=== PATIENT | female | born 1995 | race Caucasian/White ===

== ENCOUNTER → 2024-04-01 12:21 | Outpatient (REF) | payer OTHER, SELFPAY ==
[2024-04-01 13:12] LABS: MANUAL DIFF FLAG NO
--- NOTE | 2024-04-01 13:16 | ECG_ITS ---
Test Reason : qtc check Blood Pressure : / mmHG Vent. Rate : 067 BPM Atrial Rate : 067 BPM P-R Int : 146 ms QRS Dur : 066 ms QT Int : 416 ms P-R-T Axes : 037 061 029 degrees QTc Int : 439 ms Normal sinus rhythm Normal ECG No previous ECGs available Referred By: Mini Collado Electronically Signed By:BRITT LIM
[2024-04-01 14:00] LABS: Basophils Percent Auto 0.5 % (0-2); Eosinophils Absolute Auto 0.2 X10*3/uL (0.0-0.4); Eosinophils Percent Auto 1.7 % (0-4); Hematocrit 42.8 % (37.0-47.0); Hemoglobin 14.4 g/dl (12.0-16.0); Imm Gran Abs Auto 0.03 X10*3/uL (0.00-0.03); Imm Gran Pct Auto 0.3 % (0.0-0.4); Lymphocytes Absolute Auto 3.7 X10*3/uL (1.2-4.9); Lymphocytes Percent Auto 42.6 % (20-40); Mean Corpuscular HGB Conc 33.6 g/dl (31.0-35.0); Mean Corpuscular Hemoglobin 32.7 pg (27.0-33.0); Mean Corpuscular Volume 97.1 fL (80.0-98.0); Mean Platelet Volume 9.9 fL (9.4-12.3); Monocytes Absolute Auto 0.8 X10*3/uL (0.1-1.2); Neutrophils Percent Auto 45.9 % (45-73); Platelet Count 246 X10*3/uL (160-400); Red Blood Count 4.41 X10*6/uL (4.20-5.50); White Blood Count 8.7 X10*3/uL (4.8-10.8)
[2024-04-01 14:02] LABS: Appearance Urine Clear; Color Urine Yellow; Glucose Urine UA Negative (Negative); Leukocyte Esterase Urine Negative (Negative); Nitrite Urine Negative (Negative); PH 6.5 (5.0-9.0); Specific Gravity - Urine <= 1.005 (1.005-1.025); Urine Blood Negative (Negative); Urine Ketones Negative (Negative); Urine Protein Negative (Neg-Trace)
[2024-04-01 14:11] LABS: Estimated Average Glucose 91 mg/dL; Hemoglobin A1C 104.7806 umol/L; Hemoglobin A1c % 4.8 % (<6.0); Total Hemoglobin (HGBA1C) 3635.7483 umol/L
[2024-04-01 14:37] LABS: Erythrocyte Sedimentation Rate 2 MM/HR (0-20)
[2024-04-01 14:39] LABS: Lithium 0.75 mmol/L (0.60-1.20)
[2024-04-01 14:43] LABS: Valproate 94.8 mcg/mL (50.0-100.0)
[2024-04-01 14:48] LABS: Parathyroid Hormone Intact 74.9 pg/mL (8.7-77.1)
[2024-04-01 14:49] LABS: Alanine Aminotransferase 12 U/L (0-31); Albumin Level 4.4 g/dL (3.5-5.0); Alkaline Phosphatase 79 U/L (39-117); Anion Gap 12 (12-20); Aspartate Amino Transferase 39 U/L (5-31); Bilirubin Total 0.3 mg/dL (0.0-1.0); Blood Urea Nitrogen 9 mg/dL (9-16); C Reactive Protein < 0.10 mg/dL (< or = 0.50); Calcium 9.3 mg/dL (8.4-10.2); Carbon Dioxide 26 mmol/L (22-29); Chloride 106 mmol/L (96-108); Estimated Glomerular Filt Rate > 60; Glucose Random 77 mg/dL (60-115); Iron 81 mcg/dL (30-160); Magnesium 2.2 mg/dL (1.6-2.6); Percent Iron Saturation 26 % (15-50); Phosphorus 4.5 mg/dL (2.7-4.5); Potassium 4.6 mmol/L (3.3-5.1); Sodium 139 mmol/L (135-145); Total Iron Binding Capacity 308 mcg/dL (228-428); Total Protein 7.4 g/dL (6.5-8.0); Unsaturated Iron Binding 227 ug/dL
[2024-04-01 15:08] LABS: Ferritin 90 ng/mL (10-122); Free T4 (Free Thyroxine) 1.49 ng/dL (0.71-1.85); Thyroid Stimulating Hormone 0.33 uIU/mL (0.32-4.0)
[2024-04-01 15:17] LABS: Folate 8.4 ng/mL (> or = 4.0); Vitamin B12 486 pg/mL (200-900)
[2024-04-04 13:04] LABS: Thyroid Peroxidase Antibodies 243 IU/mL (<9)
[2024-04-04 21:04] LABS: Homocysteine 11.6 umol/L (<10.4)
[2024-04-05 16:04] LABS: Carnitine Esters 9 umol/L (4-13); Carnitine, Free 24 umol/L (19-48); Carnitine, Total 33 umol/L (25-58); Esterified/Free 0.38 umol/L (0.13-0.42)
[2024-04-06 16:04] LABS: Glucose-6-Phosphate Dehydrogen 14.7 U/g Hgb (7.0-20.5)
[2024-04-07 13:58] LABS: Vitamin B6 9.1 ng/mL (2.1-21.7)
[2024-04-07 18:38] LABS: VITAMIN D (1,25 OH) D3 23 pg/mL; Vit D (1,25-Dihydroxy) Total 23 pg/mL (18-72); Vitamin D (1,25 OH) D2 <8 pg/mL
[2024-04-08 13:38] LABS: Triiodothyronine T3 Reverse 14 ng/dL (8-25)
[2024-04-08 16:49] LABS: Vitamin B1 15 nmol/L (8-30)
== END ==
LOC: HO.CARD 12:21
PROVIDERS: PCP Internal Medicine; Visit Provider Psychiatry & Neurology Psychiatry
DX: F39 Unspecified mood [affective] disorder (principal); F31.60 Bipolar disorder, current episode mixed, unspecified; F50.9 Eating disorder, unspecified; E03.9 Hypothyroidism, unspecified; Z79.899 Other long term (current) drug therapy
CPT/HCPCS: 36415; 80053; 80164; 80178; 81003; 82379; 82607; 82652; 82728; 82746; 82955; 83036; 83090; 83540; 83735; 83970; 84100; 84134; 84207; 84425; 84439; 84443; 84481; 84482; 85025; 85652; 86140; 86376; 93005

== ENCOUNTER → 2024-04-01 13:16 | Outpatient (BNV) | payer OTHER, SELFPAY | PROVIDERS: PCP Internal Medicine; Visit Provider Internal Medicine | DX: F39 Unspecified mood [affective] disorder (principal); F31.60 Bipolar disorder, current episode mixed, unspecified; F50.9 Eating disorder, unspecified; E03.9 Hypothyroidism, unspecified | CPT/HCPCS: 93010 ==

== ENCOUNTER 2024-04-12 08:15 | Outpatient (RCR) | payer OTHER, SELFPAY ==
[2024-03-21 16:23] VITALS: BP 122/84; PULSE 72; RESP 18; TEMP 36.6
[2024-03-21 16:24] VITALS: BMI 27.8
--- NOTE | 2024-03-22 08:16 | PC.ADMIT ---
Rekha is a 28 year old female referred to [facility] for a step down from [facility] through [facility]. Rekha has a history of Bipolar I Disorder, Anxiety and eating disorder. Precipitating factors include worsening depression , increased anger decreased interest in activities of daily living, endorsing anxiety, passive SI and poor sleep due to running out of her medications. Upon approach Rekha is calm and pleasant, affect is broad, speech is clear and concise. When asked how she felt stated Ok, she reports endorsing 6/10 anxiety and depression, she denied auditory/visual hallucinations. When asked if she had any thoughts of wanting to hurt or kill self stated No. When asked if she had any thoughts of wanting to hurt or kill others stated No. Rekha reports everything started after she switched insurances and couldn't get her medications stated I couldn't get my Vraylar or Adderral. She reported having a breakdown in [employer]. She reported currently not having a provider I hope I get help with that. She reports having a good support system at home stated My boyfriend and his mother are extremely supportive. She would like to work on coping skills, safety plan reviewed and copy given.
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
--- NOTE | 2024-03-23 15:26 | HO.PHP ---
A referral for OP services was placed/faxed to [facility] today.
--- NOTE | 2024-03-24 14:41 | HO.PHP ---
Client's case has been opened and reviewed in team.
--- NOTE | 2024-03-25 14:11 | PC.NURSE ---
Rekha reports having a cough and chest congestion since 03/06. Stated she did have a productive cough however that resolved however continues with a cough and some chest congestion. She stated she was prescribed an inhaler and Prednisone as a result and was dx with Bronchitis. I recommended she call her PCP to f/u. She called her PCP in my office and reviewed her symptoms. They told her they would call her back for a f/u appointment.
--- NOTE | 2024-04-01 11:06 | P.PNPSP_ITS ---
Subjective Subjective Date of Service: 04/01/24 Reason For Visit: depression Interim History: Patient seen for follow up. Still presents as very depressed, withdrawn. Mood is reportedly irritable. On the outside I just tend to be quiet and keep to myself, otherwise I feel like I'll just lose it. On the inside I just want to be like 'F*k you' to everyone . Vague aggression ideation without urge plan or intention to hurt anyone. She feels some transient hopelessness, denies SI currently, but reports helplessness mostly just feeling like she doesn't know what to do with herself. Normally I use cutting, burning, starving, purging . She says it is hard not relying on these ways of coping. She doesnt know what else to do. Attention and concentration is not good. Reports feeling detached, like in space . It takes too much mental energy and focus to try to do things right . She denies acting on SIB, but the thoughts are always there. Energy is low. Profound anhedonia, lack of motivation and isolative. Appetite is poor and is unclear if she is eating well. She continues with cough and URTI symptoms and wearing mask. Again I suggest we should switch her from propranolol given could exacerbate asthma/breathing issues due to bronchoconstriction. She has hypothyroidism and is on 100 mcg. She is not sure when her last TFTs were taken. She is unsure if lithium has caused any worsening in thyroid function, but was diagnosed ~ 10 yrs ago. She has a history of hypersomnia, I would wake up at 2:30 pm to go to work for 3-11pm and then just go home and sleep from 11:30 pm until 2:30 pm again . She feels the Adderall XR 50 mg helps her function, without it I wouldn't ever make it here (to [facility]) . She continues on lithium and Depakote which have not been that helpful. Vraylar 4.5 mg had been helpful and was reportedly been stable on for some time, but then had a change in insurance and has not been able to get this prescribed since. She has been off since Feb 07. Mental health has suffered as a result. Vraylar was ordered last week but apparently did not go through insurance as she was unable to pick this up as it requires a PA which I will submit today. She is agreeable to checking labs, and will check routine labwork, TFTs as well as vpa and Li levels as well as nutritional panel. She is agreeable to staying longer at [facility] and will advocate for extension. Medication Compliance: Yes Side effects from medications: No Attending Groups: Yes Review of Systems Acute medical concerns: No Mental Status Exam Mental Status Exam Narrative: Patient presents as petite build, short bleached hair, wearing a mask. Noted bronchial cough. In no acute distress. ALert, oriented, calm, cooperative. No abnormalities of gait or movement. Eye contact good. Mood depressed, irritable. Affect appropriate, tired. No evidence of thought disorder. No paranoid or delusional content elicited. Content relevant to stressors, mood complaints. Denies AH, VH, TH. Sensorium clear. Cognition grossly intact. Insight fair, judgment fair-good Diagnostics Vital Signs (24Hr): BMI result Body Mass Index 27.8 Assessment & Plan Assessment & Plan (1) Bipolar affective, mixed, unspec: Status: Acute Code(s): F31.60 - Bipolar disorder, current episode mixed, unspecified Assessment and Plan: . (2) Hypersomnia, idiopathic: Status: Acute Code(s): G47.11 - Idiopathic hypersomnia with long sleep time Assessment and Plan: r/o type 2 narcolepsy (3) Eating disorder: Status: Acute Code(s): F50.9 - Eating disorder, unspecified Assessment and Plan: . (4) Other phobic anxiety disorders: Status: Acute Code(s): F40.8 - Other phobic anxiety disorders Assessment and Plan: r/o PTSD (5) Polysubstance abuse: Status: Acute Code(s): F19.10 - Other psychoactive substance abuse, uncomplicated Assessment and Plan: nicotine dependence (vaping), regular cannabis use/abuse (daily), alcohol use/?abuse (occasional) Plan Single, partnered, employed 28 yo w Bipolar, PTSD, h/o SIB, EDB, nicotine dep, casual marijuana and alcohol use, unspecified sleep disorder (hypersomnia) on Adderall, denies ADHD. Past IPLOCs including recent admission after decompensation 2/t being off medication. Was last seen by provider Francy HINES (reportedly last seen 02/2024 after discharge) but says she will be unable to continue under her care and will need a new provider referral. She has been successfully treated on Vraylar in the past and will restart this in lieu of Latuda, which she has not been compliant with since discharge. She is on propranolol for anxiety, she is noted to have hx of asthma, was unaware propranolol can cause bronchocontriction, but denies noticing any adverse effects from propranolol. We discussed choosing a cardio-selective beta-maryellen (eg atenolo, metoprolol) in place of propranolol. extension at [facility] start Vraylar 1.5 mg x 2 days then increase to 3 mg qd hold propranolol 20 mg QAM start prazosin 1 mg BID continue other regular medications: Depakote ER 750 mg qhs [place] ir 300 mg BID Adderall XR 50 mg qam (for hypersomnia) Xanax 0.25 BID prn anxiety? levothyroxine 100 mcg qd probiotic daily Routine lab work will do today EKG, routine for baseline QTc for medication considerations Continue to monitor Patient educated on: diagnosis, medication risk/benefits and medical condition Informed Consent: understands Reason for contiued partial hosp. stay Substantial Risk for: inability to function and med/psych decompensation Certification I certify that partial hospital treatment is medically necessary due to the symptoms and problems resulting from the patient's mental illness and the failure to treat the patient at the partial hospital level of care would likely result in the patient requiring inpatient psychiatric care which could not be prevented at a less intensive level of care. Total time managing care of this patient today __40__ minutes. Discharge Plan Discharge Attending provider: Mini Collado Medications: New cariprazine 3 mg capsule 3 mg PO DAILY Qty: 30 0RF prazosin 1 mg capsule 1 mg PO BEDTIME Qty: 14 0RF No Action levothyroxine 100 mcg tablet 100 mcg PO DAILY alprazolam 0.25 mg tablet 0.25 - 0.5 mg PO DAILY divalproex 500 mg tablet extended release 24 hr 500 mg PO BEDTIME propranolol 20 mg Tablet 20 mg PO BID lithium carbonate 300 mg tablet 300 mg PO BID dextroamphetamine-amphetamine [Adderall XR] 25 mg Capsule,Extended Release 24hr 25 mg PO DAILY divalproex 250 mg tablet extended release 24 hr 250 mg PO BEDTIME lurasidone [Latuda] 40 mg Tablet 40 mg PO DAILY Rx Instructions: Take in evening with meal Probiotic Complex 25 billion cell -100 mg Capsule 1 cap PO DAILY Stand Alone Forms: Patient Portal Discharge page Print Language: Colombian
--- NOTE | 2024-04-01 12:35 | HO.PHPPROGNO ---
Subjective Subjective Date of Service: 04/01/24 Reason For Visit: depression Diagnostics Vital Signs (24Hr): BMI result Body Mass Index 27.8 Assessment & Plan Certification I certify that partial hospital treatment is medically necessary due to the symptoms and problems resulting from the patient's mental illness and the failure to treat the patient at the partial hospital level of care would likely result in the patient requiring inpatient psychiatric care which could not be prevented at a less intensive level of care. Total time managing care of this patient today ____ minutes. Discharge Plan Discharge Attending provider: Mini Collado Medications: New cariprazine 3 mg capsule 3 mg PO DAILY Qty: 30 0RF Continued prazosin 1 mg capsule 1 mg PO BEDTIME Qty: 20 0RF No Action levothyroxine 100 mcg tablet 100 mcg PO DAILY alprazolam 0.25 mg tablet 0.25 - 0.5 mg PO DAILY divalproex 500 mg tablet extended release 24 hr 500 mg PO BEDTIME propranolol 20 mg Tablet 20 mg PO BID lithium carbonate 300 mg tablet 300 mg PO BID dextroamphetamine-amphetamine [Adderall XR] 25 mg Capsule,Extended Release 24hr 25 mg PO DAILY divalproex 250 mg tablet extended release 24 hr 250 mg PO BEDTIME lurasidone [Latuda] 40 mg Tablet 40 mg PO DAILY Rx Instructions: Take in evening with meal Probiotic Complex 25 billion cell -100 mg Capsule 1 cap PO DAILY Stand Alone Forms: Patient Portal Discharge page Print Language: Telugu
--- NOTE | 2024-04-07 17:43 | HO.PHP ---
A referral for [facility] was placed for Rekha, her new appts for intake, then to meet with provider, are as follows: 04/08/2024 10:00 AM - 11:00 AM in person [facility] Adult Comprehensive Assessment Prog: Outpatient Site: [address] [place] [address] Staff: Mehdi Villalta 05/12/2024 8:40 AM - 09:40 AM via telehealth Psychiatric E/M New - Telehealth v2 Prog: Psychiatric Services Site: [address] [place] [address] Staff: KELECHI KAPADIA Rekha will be provided a copy of her appts.
--- NOTE | 2024-04-08 00:49 | P.PNPSP_ITS ---
Subjective Subjective Date of Service: 04/07/24 Reason For Visit: depression Interim History: Patient seen for follow up. Reports that things are stressful . Reports mood as pretty anxious . Poor frustration tolerance. PA was filled out last week 04/03, update status appears PA did not go through, will resubmit request for authorization with cariprazosine. She was last at psychiatric baseline when treated on cariprazine and has been struggling with Bipolar depression/irritability/insomnia since she ran out. PHP was extended for another week, as she feels supportive environment is helping her manage while waiting for approval to restart cariprazine. Prazosin was helpful for first few nights for nightmares/anxiety, is open to increasing dose to 2 mg. Denies any adverse effects at night. Did not tolerate AM dosing (too sedating) and restarted propranolol in AM. Does not feel inclined to try any other mood stabilizers, has only found carprazine helpful and is holding out to restart this. Reviewed recent lab work with patient, - elevated anti-TPO Abs (patient unaware if she has Hashimotos). Was dx hypothyroid at age 17 that's all I know . She has upcoming appointment with PCP. She still presents with cough/URTI sx. She declines offer to switch from propranolol (which can cause bronchoconstrx) to cardioselective BB. She also has upcoming [facility] intake on 04/08 and new psych provider appointment 05/12. Medication Compliance: Yes Side effects from medications: Yes (limited improvement with current med regime (Li, VPA)) Attending Groups: Yes Review of Systems Acute medical concerns: No Mental Status Exam Mental Status Exam Narrative: Patient presents as petite build, short bleached hair, wearing a mask. Noted bronchial cough. In no acute distress. Alert, oriented, calm, cooperative. No abnormalities of gait or movement. Eye contact good. Mood depressed, irritable. Affect appropriate, tired. No evidence of thought disorder. Transient passive SI, no suicidal thoughts, intention, urge or plan to harm self. ISsues with poor frustration tolerance, irritability, denies AI or HI. No paranoid or delusional content elicited. Content relevant to stressors, mood complaints. Denies AH, VH, TH. Sensorium clear. Cognition grossly intact. Insight fair, judgment fair-good Diagnostics Vital Signs (24Hr): BMI result Body Mass Index 27.8 Assessment & Plan Assessment & Plan (1) Bipolar affective, mixed, unspec: Status: Acute Code(s): F31.60 - Bipolar disorder, current episode mixed, unspecified Assessment and Plan: . (2) Hypersomnia, idiopathic: Status: Acute Code(s): G47.11 - Idiopathic hypersomnia with long sleep time Assessment and Plan: r/o type 2 narcolepsy (3) Eating disorder: Status: Acute Code(s): F50.9 - Eating disorder, unspecified Assessment and Plan: . (4) Other phobic anxiety disorders: Status: Acute Code(s): F40.8 - Other phobic anxiety disorders Assessment and Plan: r/o PTSD (5) Polysubstance abuse: Status: Acute Code(s): F19.10 - Other psychoactive substance abuse, uncomplicated Assessment and Plan: nicotine dependence (vaping), regular cannabis use/abuse (daily), alcohol use/?abuse (occasional) Plan Single, partnered, employed 28 yo w Bipolar, PTSD, h/o SIB, EDB, nicotine dep, casual marijuana and alcohol use, unspecified sleep disorder (hypersomnia) on Adderall, denies ADHD. Past IPLOCs including recent admission after decompensation 2/t being off medication. Was last seen by provider Francy HINES (reportedly last seen 02/2024 after discharge) but says she will be unable to continue under her care and will need a new provider referral. She has been successfully treated on Vraylar in the past and will restart this in lieu of Latuda, which she has not been compliant with since discharge. She is on pr opranolol for anxiety, she is noted to have hx of asthma, was unaware propranolol can cause bronchocontriction, but denies noticing any adverse effects from propranolol. We discussed choosing a cardio-selective beta-maryellen (eg atenolo, metoprolol) in place of propranolol. extension at [facility] pending start Vraylar 1.5 mg x 2 days then increase to 3 mg qd (resubmitted PA again today) continue propranolol 20 mg QAM increase prazosin to 2 mg QHS continue other regular medications: Depakote ER 750 mg qhs (VPA therapeutic at 94.8) Nellie ir 300 mg BID (Li level therapuetic at 0.75) Adderall XR 50 mg qam (for hypersomnia) Xanax 0.25 BID prn anxiety? levothyroxine 100 mcg qd probiotic daily Routine lab work reviewed EKG, routine for baseline QTc for medication considerations Continue to monitor Certification I certify that partial hospital treatment is medically necessary due to the symptoms and problems resulting from the patient's mental illness and the failure to treat the patient at the partial hospital level of care would likely result in the patient requiring inpatient psychiatric care which could not be prevented at a less intensive level of care. Total time managing care of this patient today ____ minutes. Discharge Plan Discharge Attending provider: Mini Collado Medications: New cariprazine 3 mg capsule 3 mg PO DAILY Qty: 30 0RF Continued levothyroxine 100 mcg tablet 100 mcg PO DAILY alprazolam 0.25 mg tablet 0.25 - 0.5 mg PO DAILY divalproex 500 mg tablet extended release 24 hr 500 mg PO BEDTIME propranolol 20 mg Tablet 20 mg PO BID lithium carbonate 300 mg tablet 300 mg PO BID dextroamphetamine-amphetamine [Adderall XR] 25 mg Capsule,Extended Release 24hr 25 mg PO DAILY divalproex 250 mg tablet extended release 24 hr 250 mg PO BEDTIME lurasidone [Latuda] 40 mg Tablet 40 mg PO DAILY Rx Instructions: Take in evening with meal Probiotic Complex 25 billion cell -100 mg Capsule 1 cap PO DAILY prazosin 1 mg capsule 1 mg PO BEDTIME Qty: 20 0RF Stand Alone Forms: Patient Portal Discharge page Print Language: Serbian
--- NOTE | 2024-04-12 14:51 | P.PNPSP_ITS ---
Subjective Subjective Date of Service: 04/12/24 Reason For Visit: depression Diagnostics Vital Signs (24Hr): BMI result Body Mass Index 27.8 Assessment & Plan Certification I certify that partial hospital treatment is medically necessary due to the symptoms and problems resulting from the patient's mental illness and the failure to treat the patient at the partial hospital level of care would likely result in the patient requiring inpatient psychiatric care which could not be prevented at a less intensive level of care. Total time managing care of this patient today ____ minutes. Discharge Plan Discharge Attending provider: Mini Collado Medications: New cariprazine 3 mg capsule 3 mg PO DAILY Qty: 30 0RF Continued levothyroxine 100 mcg tablet 100 mcg PO DAILY alprazolam 0.25 mg tablet 0.25 - 0.5 mg PO DAILY divalproex 500 mg tablet extended release 24 hr 500 mg PO BEDTIME lithium carbonate 300 mg tablet 300 mg PO BID divalproex 250 mg tablet extended release 24 hr 250 mg PO BEDTIME Probiotic Complex 25 billion cell -100 mg Capsule 1 cap PO DAILY Changed dextroamphetamine-amphetamine [Adderall XR] 25 mg Capsule,Extended Release 24hr 50 mg PO DAILY 30 Days Qty: 60 0RF prazosin 1 mg capsule 1 mg PO BID Qty: 30 0RF Rx Instructions: *Dose change* Discontinued propranolol 20 mg Tablet 20 mg PO BID lurasidone [Latuda] 40 mg Tablet 40 mg PO DAILY Rx Instructions: Take in evening with meal Stand Alone Forms: Patient Portal Discharge page Patient Education: Bipolar Disorder (DC) Print Language: Kinyarwanda
== END 2024-04-12 23:59 | disposition home or self-care (01) ==
LOC: HO.PHPA 08:15
PROVIDERS: Visit Provider Psychiatry & Neurology Psychiatry
DX: F31.60 Bipolar disorder, current episode mixed, unspecified (principal); G47.11 Idiopathic hypersomnia with long sleep time; F50.9 Eating disorder, unspecified; F40.8 Other phobic anxiety disorders; F19.10 Other psychoactive substance abuse, uncomplicated; Z79.899 Other long term (current) drug therapy
CPT/HCPCS: 90791; 90853

== ENCOUNTER 2024-06-15 13:35 | Emergency (ER) | payer OTHER, SELFPAY ==
[2024-06-15] VITALS (8 sets, daily range): BP systolic 125–182; BP diastolic 85–126; PULSE 72–120; RESP 15–20; TEMP 36.2–36.8; O2SAT 93–100; BMI 24.5
--- NOTE | ~2024-06-15 | US_ITS ---
CLINICAL HISTORY: pain, swelling Bilateral lower extremity venous duplex ultrasound. Study was performed using color and spectral waveform analysis. Comparison: None Findings: Visualized deep veins are fully compressible with normal flow and augmentation. No popliteal cysts. No significant adenopathy. Impression: Bilateral lower extremity venous duplex ultrasound negative for DVT This document has been electronically signed by: Magno Montoya MD on 06/15/2024 22:38:20
--- NOTE | ~2024-06-15 | CT_ITS ---
CLINICAL HISTORY: severe headache CT head without contrast Comparison: None Findings: No intracranial mass, midline shift, hydrocephalus, or acute hemorrhage. No acute process in sinuses or mastoids. No acute bony abnormality. Impression: No acute intracranial process This document has been electronically signed by: Magno Montoya MD on 06/15/2024 22:36:43
--- NOTE | 2024-06-15 13:39 | ED_ITS ---
HPI - General Adult General Chief complaint: General Medical Stated complaint: High Heart Rate X Weeks Headache Time Seen by Provider: 06/15/24 20:52 Source: patient, RN notes reviewed and old records reviewed Mode of arrival: ambulatory Limitations: no limitations History of Present Illness ED Provider: Good HPI narrative: 18-year-old female presents for evaluation of multiple complaints including rapid heart rate and headache. Patient reports her headache started yesterday. She reports a severe headache and light sensitivity. Denies any history of migraines Patient reports that her heart rate has been fast for last couple of weeks, especially when she was standing. She reports her heart rate has been as high as 150. She denies any chest pain but can feel palpitations. She also reports that her legs have been intermittently swollen She was on control that does not include estrogens, she was on Slynd and has been on that for about 1 year. Denies any recent travel, history of DVT or PE. She was on levothyroxine for hypothyroidism Related Data Home Medications ?Medication ?Instructions ?Recorded ?Confirmed L.acidophilus-B.animalis-B.bifidum 1 cap PO DAILY 03/22/24 03/22/24 25 billion cell-FOS 100 mg capsule (Probiotic Complex) alprazolam 0.25 mg tablet 0.25 - 0.5 mg PO DAILY panic attack 03/22/24 03/22/24 divalproex 250 mg tablet,extended 250 mg PO BEDTIME 03/22/24 03/22/24 release 24 hr divalproex 500 mg tablet,extended 500 mg PO BEDTIME 03/22/24 03/22/24 release 24 hr levothyroxine 100 mcg tablet 100 mcg PO DAILY 03/22/24 03/22/24 lithium carbonate 300 mg tablet 300 mg PO BID 03/22/24 03/22/24 Previous Rx's ?Medication ?Instructions ?Recorded cariprazine 3 mg capsule 3 mg PO DAILY #30 caps 03/22/24 dextroamphetamine-amphetamine ER 50 mg (2 x 25 mg) PO DAILY 30 days 04/12/24 25 mg 24hr capsule,extend release #60 caps (Adderall XR) prazosin 1 mg capsule 1 mg PO BID #30 caps 04/12/24 Allergies Allergy/AdvReac Type Severity Reaction Status Date / Time lamotrigine [From Lamictal] Allergy Hives Verified 06/15/24 13:43 Seasonal Allergies Allergy Sneezing Verified 06/15/24 13:43 Review of Systems 2 Constitutional: Constitutional: Denies body ache(s), Denies chills, Denies fever(s) and Reports weight loss (25 pounds) Eyes: Eyes: Denies blurry vision and Reports photophobia ENT: Reports vertigo and Reports dizziness Cardiovascular: Cardiovascular: Denies chest pain, Reports rapid heart rate, Reports leg edema, Reports palpitations and Denies dyspnea Respiratory: Respiratory: Denies cough and Denies dyspnea Gastrointestinal: Gastrointestinal: Denies abdominal pain Musculoskeletal: Musculoskeletal: Denies back pain Integumentary/Breasts: Skin/Breast: Denies rash Neurologic: Reports vertigo and Reports dizziness Endocrine: Endocrine: Reports palpitations PMFSH Past Medical History Medical History (Updated 06/15/24 @ 22:50 by Esteban Funk) Seasonal asthma Vasovagal syncope Bulimia Anorexia Hypothyroidism Surgical History (Updated 03/25/24 @ 12:35 by Palak Walsh RN) H/O shoulder surgery Social History Social History Household Members: Other Household Members Other:: Partners Mother Comment: Rekha's discharge date is scheduled for 04/12/24. Patient Tobacco Use Status: Current everyday Tobacco user Years Smoked: 4 Smoked in Last 30 Days: Yes Use of substances other than those prescribed or required for medical reasons: No Advance Directives: No Advance Directives Information Provided: No Do you have a plan to hurt others: No Plan Physical Exam ED Vital Signs: Vital Signs - 24 hr 06/15/24 13:39 06/15/24 19:43 06/15/24 19:44 Temperature 97.2 F Pulse Rate 120 H 93 104 H Respiratory Rate 16 Blood Pressure 182/126 H 147/97 H 135/96 H Pulse Oximetry 96 Oxygen Delivery Method Room Air 06/15/24 19:45 06/15/24 19:48 06/15/24 20:28 Temperature 97.9 F 98.3 F Pulse Rate 116 H 96 99 Respiratory Rate 18 20 Blood Pressure 158/110 H 159/99 H 126/85 Pulse Oximetry 100 99 Oxygen Delivery Method Room Air Room Air BMI result Body Mass Index 24.5 Const General: healthy appearing, comfortable, no acute distress, alert and awake Nutritional Appearance: well nourished Orientation/consciousness: patient oriented x3 HENMT Head: Yes normocephalic and Yes atraumatic Eyes Eyelids: Yes eyelids normal Conjunctivae: conjunctivae normal Sclerae: sclerae normal Corneas: corneas normal Pupils: Equal, round and reactive pupils present EOM: EOMs intact bilaterally Direct Ophthalmoscopy: photophobia Neck Neck: Yes full ROM Resp Effort & Inspection: normal respiratory effort, able to speak in complete sentences and not labored Cardio Rate: regular rate Rhythm: regular rhythm GI Inspection: No distended Palpation (GI): Soft to palpation, not firm, nontender, no guarding and not rigid Skin General skin exam: elasticity normal Neuro General: patient oriented x3 Cranial nerves: Yes Equal, round and reactive pupils present and Yes Bilaterally intact EOM present Cognition (Neuro): normal cognition Extrem Other: Moving all extremities well without any obvious deformities. No obvious lower extremity edema Course Course Course Narrative: This is a Rapid Medical Exam performed in triage by Geri Atkinson PA-C. Full HPI, ROS and PE to be performed by primary ED provider. 28 yo F w/PMHx polysubstance use, bipolar, eating d/o, hypothyroid presenting to the ED c/o high heart rate x few weeks, worse with exertion. Admits to BUCHANAN & palpitations yesterday w/pre-syncopal episode. BUCHANAN still present but better than yesterday. Denies CP/SOB. Saw PCP yesterday & was Rx Propranolol but hasn't taken it yet PE: HTNsive, no focal deficits, amblulating w/steady gait Plan: EKG, labs, SARs, orthostatics, UA Medical Decision Making Medical Decision Making [facility] Narrative: [age] old female presents for evaluation of fast heart rate. Her EKG is a sinus rhythm. At rest her heart rate is in the 80s. When she stands up her heart rate jumps up to about 120. There is no evidence of JEFFERSON and the patient is not appear to be clinically dehydrated. I feel this is more likely related to POTS rather than hypovolemia. I did discuss trying IV fluids and the patient declines. Given her reported leg swelling, heart rate and the fact that she was a control I ordered a D-dimer which was negative. She is not likely to have a PE. I did ultrasound her legs given that she reports leg swollen but this is not objective. We will get a CT scan of the brain given her severe headache in his reported which is new for her though she has no neuro deficits. I have a low suspicion for CVA Differential Diagnosis Differential Diagnoses: The differential diagnosis associated with the presentation includes Hyperthyroidism DVT PE Acute headache Migraine headache Hypovolemia POTS Lab Data MDM Lab Attestation statement: I reviewed the patient's lab results. No leukocytosis, no significant anemia. Normal platelet count. D-dimer negative. No significant electrolyte abnormalities warranting intervention. The patient is not . 06/15/24 14:00 06/15/24 14:00 Labs: Lab Results 06/15/24 06/15/24 Range/Units 14:00 18:56 WBC 7.3 (4.8-10.8) X10*3/uL RBC 4.66 (4.20-5.50) X10*6/uL Hgb 14.9 (12.0-16.0) g/dl Hct 42.3 (37.0-47.0) % MCV 90.8 (80.0-98.0) fL MCH 32.0 (27.0-33.0) pg MCHC 35.2 H (31.0-35.0) g/dl RDW 11.9 (11.0-16.0) % Plt Count 261 (160-400) X10*3/uL MPV 8.7 L (9.4-12.3) fL Immature Gran % (Auto) 0.3 (0.0-0.4) % Neut % (Auto) 51.5 (45-73) % Lymph % (Auto) 41.1 H (20-40) % [place] % (Auto) 5.5 (2-11) % Eos % (Auto) 1.1 (0-4) % Baso % (Auto) 0.5 (0-2) % Lymph # (Auto) 3.0 (1.2-4.9) X10*3/uL [place] # (Auto) 0.4 (0.1-1.2) X10*3/uL Eos # (Auto) 0.1 (0.0-0.4) X10*3/uL Baso # (Auto) 0.0 (0.0-0.2) X10*3/uL Abs Immat Gran (auto) 0.02 (0.00-0.03) X10*3/uL Absolute Neuts (auto) 3.8 (2.0-8.3) x10*3/uL Absolute Nucleated RBC 0.000 (0.0-0.012) X10*3/uL Nucleated RBC % (auto) 0.0 (0.0-0.2) /100WBC PT 11.6 (10.9-12.4) SEC INR 1.0 (0.9-1.1) D-Dimer High Sensitivty < 150 NG/ML Sodium 138 (135-145) mmol/L Potassium 3.8 (3.3-5.1) mmol/L Chloride 109 H (96-108) mmol/L Carbon Dioxide 23 (22-29) mmol/L Anion Gap 10 L (12-20) BUN 7 L (9-16) mg/dL Creatinine 0.93 (0.5-1.4) mg/dL Estim Creat Clear Calc 73.1 Estimated GFR > 60 Random Glucose 87 (60-115) mg/dL Calcium 9.3 (8.4-10.2) mg/dL Magnesium 2.1 (1.6-2.6) mg/dL Total Bilirubin 1.1 H (0.0-1.0) mg/dL Direct Bilirubin 0.4 (0.0-0.5) mg/dL AST 46 H (5-31) U/L ALT 9 (0-31) U/L Alkaline Phosphatase 80 (39-117) U/L Troponin I High Sens < 2.7 (<3.5-17.0) ng/L Total Protein 7.8 (6.5-8.0) g/dL Albumin 4.4 (3.5-5.0) g/dL TSH 0.66 (0.32-4.0) uIU/mL Beta HCG, Quant < 2 mIU/mL Urine Color Dark Yellow Urine Appearance Cloudy Urine pH 6.0 (5.0-9.0) Ur Specific [place] 1.020 (1.005-1.025) Urine Protein Trace (Neg-Trace) mg/dL Urine Glucose (UA) Negative (Negative) mg/dL Urine Ketones Trace (Negative) mg/dL Urine Blood Negative (Negative) Urine Nitrite Negative (Negative) Ur Leukocyte Esterase Trace H (Negative) Urine RBC 3-5 H (0-2) /HPF Urine WBC 6-10 H (0-5) /HPF Ur Squamous Epith Cells >20 (0-2) /HPF Urine Bacteria 1+ (None Seen) Hyaline Casts 3-5 (0-2) /LPF [place] 0.64 (0.60-1.20) mmol/L Influenza Type A (PCR) NEGATIVE (Negative) Influenza Type B (PCR) NEGATIVE (Negative) RSV RNA Qual (PCR) NEGATIVE (Negative) SARS-CoV-2 RNA (RT-PCR) NEGATIVE (Negative) Independent Interpretation I performed an independent interpretation of an: EKG (Sinus tachycardia rate of [address] segment changes) Radiology Impression Discussion of test interpretation with radiology: I have reviewed the radiologist's reading. Radiologist Impression: Findings: Visualized deep veins are fully compressible with normal flow and augmentation. No popliteal cysts. No significant adenopathy. Impression: Bilateral lower extremity venous duplex ultrasound negative for DVT This document has been electronically signed by: Magno Montoya MD on 06/15/2024 22:38:20 Findings: No intracranial mass, midline shift, hydrocephalus, or acute hemorrhage. No acute process in sinuses or mastoids. No acute bony abnormality. Impression: No acute intracranial process This document has been electronically signed by: Magno Montoya MD on 06/15/2024 22:36:43 Tests considered The following testing was considered but not selected: Discussed IV fluid treatment due to the orthostatic tachycardia. Patient declines and prefer to hydrate orally Discharge Plan Discharge Clinical Impression: Headache, Tachycardia Patient Disposition: Home, Self-Care Instructions: Tachycardia (ED) Additional Instructions: Your workup in the ER today is reassuring. Your CT scan was unremarkable. The ultrasound showed no evidence of blood clots. Your blood work was within normal limits I recommend that you follow up with cardiology for your postural tachycardia Return for new or worsening symptoms Prescriptions: No Action levothyroxine 100 mcg tablet 100 mcg PO DAILY alprazolam 0.25 mg tablet 0.25 - 0.5 mg PO DAILY divalproex 500 mg tablet extended release 24 hr 500 mg PO BEDTIME lithium carbonate 300 mg tablet 300 mg PO BID divalproex 250 mg tablet extended release 24 hr 250 mg PO BEDTIME Probiotic Complex 25 billion cell -100 mg Capsule 1 cap PO DAILY cariprazine 3 mg capsule 3 mg PO DAILY Qty: 30 0RF dextroamphetamine-amphetamine [Adderall XR] 25 mg Capsule,Extended Release 24hr 50 mg PO DAILY 30 Days Qty: 60 0RF prazosin 1 mg capsule 1 mg PO BID Qty: 30 0RF Rx Instructions: *Dose change* Referrals: Marek Dean MD [Physician] - (postural tachycardia) Print Language: Lithuanian
--- NOTE | 2024-06-15 13:41 | ECG_ITS ---
Test Reason : PALPITATION Blood Pressure : */* mmHG Vent. Rate : 101 BPM Atrial Rate : 101 BPM P-R Int : 142 ms QRS Dur : 64 ms QT Int : 332 ms P-R-T Axes : 74 79 34 degrees QTcB Int : 430 ms Sinus tachycardia Otherwise normal ECG When compared with ECG of 01-Apr-2024 13:19, Vent. rate has increased by 34 bpm Referred By: Geri Atkinson Electronically Signed By: PATRICIA MILNER MD
[2024-06-15 14:09] LABS: MANUAL DIFF FLAG NO
[2024-06-15 14:13] LABS: Basophils Percent Auto 0.5 % (0-2); Eosinophils Absolute Auto 0.1 X10*3/uL (0.0-0.4); Eosinophils Percent Auto 1.1 % (0-4); Hematocrit 42.3 % (37.0-47.0); Hemoglobin 14.9 g/dl (12.0-16.0); Imm Gran Abs Auto 0.02 X10*3/uL (0.00-0.03); Imm Gran Pct Auto 0.3 % (0.0-0.4); Lymphocytes Percent Auto 41.1 % (20-40); Mean Corpuscular HGB Conc 35.2 g/dl (31.0-35.0); Mean Corpuscular Volume 90.8 fL (80.0-98.0); Mean Platelet Volume 8.7 fL (9.4-12.3); Monocytes Absolute Auto 0.4 X10*3/uL (0.1-1.2); Monocytes Percent Auto 5.5 % (2-11); Neutrophils Absolute Auto 3.8 x10*3/uL (2.0-8.3); Neutrophils Percent Auto 51.5 % (45-73); Platelet Count 261 X10*3/uL (160-400); Red Blood Count 4.66 X10*6/uL (4.20-5.50); Red Cell Distribution Width 11.9 % (11.0-16.0); White Blood Count 7.3 X10*3/uL (4.8-10.8)
[2024-06-15 14:20] LABS: Prothrombin Time 11.6 SEC (10.9-12.4)
[2024-06-15 14:23] LABS: Lithium 0.64 mmol/L (0.60-1.20)
[2024-06-15 14:35] LABS: Alanine Aminotransferase 9 U/L (0-31); Albumin Level 4.4 g/dL (3.5-5.0); Alkaline Phosphatase 80 U/L (39-117); Anion Gap 10 (12-20); Aspartate Amino Transferase 46 U/L (5-31); Bilirubin Direct 0.4 mg/dL (0.0-0.5); Bilirubin Total 1.1 mg/dL (0.0-1.0); Blood Urea Nitrogen 7 mg/dL (9-16); Calcium 9.3 mg/dL (8.4-10.2); Carbon Dioxide 23 mmol/L (22-29); Chloride 109 mmol/L (96-108); Creatinine Clr Calc Pharmacy 73.1; Estimated Glomerular Filt Rate > 60; Glucose Random 87 mg/dL (60-115); Magnesium 2.1 mg/dL (1.6-2.6); Potassium 3.8 mmol/L (3.3-5.1); Sodium 138 mmol/L (135-145); Total Protein 7.8 g/dL (6.5-8.0); Troponin-I High Sensitivity < 2.7 ng/L (<3.5-17.0)
[2024-06-15 14:51] LABS: Influenza A PCR NEGATIVE (Negative); Influenza B PCR NEGATIVE (Negative); Resp Syncy Virus RNA Qual PCR NEGATIVE (Negative); SARS COV2 PCR INHOUSE NEGATIVE (Negative)
[2024-06-15 15:08] LABS: TSH reflex Free T4 0.66 uIU/mL (0.32-4.0)
[2024-06-15 19:06] LABS: Appearance Urine Cloudy; Color Urine Dark Yellow; Glucose Urine UA Negative (Negative); Leukocyte Esterase Urine Trace (Negative); Nitrite Urine Negative (Negative); UMIC TRIGGER UACC YES; Urine Blood Negative (Negative); Urine Ketones Trace mg/dL (Negative); Urine Protein Trace mg/dL (Neg-Trace)
[2024-06-15 19:22] LABS: Bacteria Urine 1+ (None Seen); Squamous Epithelial Cell Urine >20 /HPF (0-2); UACC Culture Trigger YES
[2024-06-15 21:26] LABS: D Dimer High Sensitivity < 150 NG/ML
[2024-06-15 21:45] LABS: HCG Quantitative < 2 mIU/mL
[2024-06-15 23:18] LABS: Amphetamine Screen Urine POSITIVE (Not Detect); Barbiturates, Urine Not Detected (Not Detect); Benzodiazepines Screen Urine Not Detected (Not Detect); Buprenorphine Scr Not Detected (Not Detect); Cannabinoid Screen Urine Not Detected (Not Detect); Cocaine Screen Urine Not Detected (Not Detect); Fentanyl, urine Not Detected (Not Detect); Methadone Screen, Urine Not Detected (Not Detect); Opiate Screen Urine Not Detected (Not Detect); Oxycodone Screen Urine Not Detected (Not Detect); Phencyclidine Screen Urine Not Detected (Not Detect)
[2024-06-15 23:46] LABS: T4 Thyroxine 11.4 ug/dL (4.5-12.0)
== END 2024-06-15 23:02 | disposition home or self-care (01) ==
PROVIDERS: Physician Assistant; Emergency Provider Emergency Medicine; PCP Internal Medicine
DX: R51.9 Headache, unspecified (principal); R00.0 Tachycardia, unspecified; M79.89 Other specified soft tissue disorders; E03.9 Hypothyroidism, unspecified; Z79.899 Other long term (current) drug therapy
CPT/HCPCS: 0241U; 36415; 70450; 80048; 80076; 80178; 80307; 81001; 83735; 84436; 84443; 84484; 84702; 85025; 85379; 85610; 87086; 93005; 93970; 99284; 99285

== ENCOUNTER → 2024-06-15 13:41 | Outpatient (BNV) | payer OTHER, SELFPAY | PROVIDERS: PCP Internal Medicine; Visit Provider Internal Medicine Cardiovascular Disease | DX: R00.2 Palpitations (principal); R00.0 Tachycardia, unspecified | CPT/HCPCS: 93010 ==

== ENCOUNTER → 2024-06-15 21:45 | Outpatient (BNV) | payer OTHER, SELFPAY | PROVIDERS: Emergency Provider Emergency Medicine; PCP Internal Medicine; Visit Provider Radiology Diagnostic Radiology | DX: R51.9 Headache, unspecified (principal); M79.604 Pain in right leg; M79.605 Pain in left leg; R22.43 Localized swelling, mass and lump, lower limb, bilateral | CPT/HCPCS: 70450; 93970 ==

== ENCOUNTER 2025-02-18 09:42 | Emergency (ER) | payer OTHER, SELFPAY ==
--- OUTSIDE RECORDS SUMMARY | 2025-02-13 23:59 | XMS_ITS | Continuity of Care Document ---
Author Organization [facility] Address [address] [place] [address]- Care Team Providers Care Infection Preventionist Name Role Phone Grace Card MD Primary Care Phys[id number] Date(s): 02/06/25 - 02/13/25 [facility] [address] [place], [place] [address] [place] Encounter Diagnosis Chest pain(Discharge Diagnosis) - 02/06/25 Difficulty breathing(Discharge Diagnosis) - 02/06/25 Vaping nicotine dependence, tobacco product(Discharge Diagnosis) - 02/08/25 Cutaneous eruption(Discharge Diagnosis) - 02/08/25 POTS (postural orthostatic tachycardia syndrome)(Discharge Diagnosis) - 02/06/25 Costochondritis(Discharge Diagnosis) - 02/06/25 Attending Physician: Grace Card MD Encounter Type: Office Visit Allergies, Adverse Reactions, Alerts Substance Criticality Severity Reaction Reaction Severity Status LaMICtal Active Functional Status Functional Status Assessment Assessment Assessment Component Result Effecti ve Date Disability status [CUBS] I'm Safe - I rarely have acute or chronic symptoms affecting housing, employment, social interactions, etc. 02/06/25 Do you have serious difficulty walking or climbing stairs Yes 02/06/25 Difficulty communica ting in usual language No 02/06/25 Are you blind, or do you have serious difficulty seeing, even when wearing glasses Yes 02/06/25 Difficulty Reading O r Writing No 02/06/25 Because of a physica l, mental, or emotional condition, do you have serious difficulty concentrating, remembering, or making decisions No 02/06/25 Do you have difficul ty dressing or bathing Yes 02/06/25 Because of a physica l, mental, or emotional condition, do you have difficulty doing errands alone such as visiting a physician's office or shopping Yes 02/06/25 Are you deaf, or do you have serious difficulty hearing No 02/06/25 Do you need any jose tional assistance or accommodations during your visit No 02/06/25 Immunizations Given and Recorded Vaccine Date Status Refusal Reason influenza virus vaccine, inactivated 1 01/15/24 Gi jerardo influenza virus vaccine, inactivated 05/28/22 Jeremy rded influenza virus vaccine, inactivated 02/17/20 Jeremy rded influenza virus vaccine, inactivated 04/22/19 Give n influenza virus vaccine, inactivated 02/01/14 Give n SARS-CoV-2 mRNA (vnubowa-hufy-qfims) vax 06/23/21 Recorded SARS-CoV-2 (COVID-19) mRNA BNT-162b2 vac 08/29/20 Recorded SARS-CoV-2 (COVID-19) mRNA BNT-162b2 vac 08/07/20 Recorded tetanus/diphtheria/pertussis, acel(Tdap) 12/08/17 Given tetanus/diphtheria/pertussis, acel(Tdap) 2 09/14/07 Recorded 1Result Comment: [id number] 2Result Comment: [05/25/2013] At [facility] Medications acetaminophen 325 mg oral tablet 650 mg, By Mouth, Every 4 hours, PRN, Temperature Greater than 100.5, Refills 0, Maintenance, Pain , Mild, 12/29/24 1:28:00 PM EDT, Partial fill upon patient request if the prescription is for a schedule II opioid drug. Start Date: 12/29/24 Status: Ordered Medication Dispense Status: Completed Total Allowed Fills: 1 Fills Dispensed: 0 Adderall XR 25 mg oral capsule, extended release TAKE 2 CAPSULES BY MOUTH EVERY DAY IN THE MORNING Start Date: 12/27/24 Status: Ordered Medication Dispense Status: Completed Total Allowed Fills: 1 Fills Dispensed: 0 Albuterol (Eqv-ProAir HFA) 90 mcg/inh inhalation aerosol 1 inhalation = 90 mcg, Inhalation, Every 4 hours, PRN as needed for shortness of breath or wheezing, # 18 Gm, 0 Refills, Maintenance, 02/06/25 9:16:00 AM EDT, Aerosol, [facility]/pharmacy #[id number], Partial fill upon patient request if the prescription is for a schedule II opioid drug., 1 inhalation Inhalation Every 4 hours,PRN:as needed for shortness of breath or wheezing, 160, cm, 02/06/25 8:34:00 EDT, Height, 79.4, kg, 02/06/25 8:34:00 EDT, Dry Weight Start Date: 02/06/25 Status: Ordered Medication Dispense Status: Completed Quantity: 18.0 Unit: g Total Allowed Fills: 1 Fills Dispensed: 0 Indications: Other abnormalities of breathing; Wheezing; ALPRAZolam 0.25 mg oral tablet 0.25 mg, 1, tablet, By Mouth, PRN, for panic attacks, Refills 0, Maintenance, as needed for anxiety, 03/17/24 2:56:00 PM EST, Partial fill upon patient request if the prescription is for a schedule IIopioid drug. Start Date: 03/17/24 Status: Ordered Medication Dispense Status: Completed Total Allowed Fills: 1 Fills Dispensed: 0 aspirin 81 mg oral delayed release tablet 81 mg, 1, tablet, By Mouth, Daily, Refills 0, Maintenance, 12/27/24 3:43:00 PM EDT, Partial fill upon patient request if the prescription is for a schedule II opioid drug. Start Date: 12/27/24 Status: Ordered Medication Dispense Status: Completed Total Allowed Fills: 1 Fills Dispensed: 0 divalproex sodium 250 mg oral tablet, extended release = 750 mg, By Mouth, Daily at bedtime, # 90 capsule, 0 Refills, Maintenance, 03/07/24 9:46:00 AM EST, ER Tablet, [facility] #[id number], Partial fill upon patient request if the prescription is for a schedule II opioid drug., 160, cm, 03/06/24 8:41:00 EST, Height, 69.9, kg, 02/25/24 20:33:00 EST, Dry Weight Start Date: 03/07/24 Status: Ordered Medication Dispense Status: Completed Quantity: 90.0 Unit: capsule Total Allowed Fills: 1 Fills Dispensed: 0 fluticasone 50 mcg/inh nasal spray 1 sprays = 50 mcg, Nares, Both, 2 times a day, # 16 Gm, 1 Refills, Maintenance, 04/15/24 9:38:00 AM EST, [place], [facility] #[id number], Partial fill upon patient request if the prescription is fora schedule II opioid drug., 1 sprays Nares, Both 2 times a day, 160, cm, 04/15/24 8:51:00 EST, Height, 69.9, kg, 03/29/24 18:13:00 EST, Dry Weight Start Date: 04/15/24 Status: Ordered Medication Dispense Status: Completed Quantity: 16.0 Unit: g Total Allowed Fills: 2 Fills Dispensed: 0 levothyroxine 0.1 mg oral tablet 1 tablet = 100 mcg, By Mouth, Daily, # 90 tablet, 0 Refills, Maintenance, 11/21/24 4:18:00 PM EDT, Tablet, [facility]/pharmacy #[id number], Partial fill upon patient request if the prescription is for a schedule II opioid drug., 162, cm, 11/14/24 10:51:00 EDT, Height, 65, kg, 10/23/24 17:13:00 EDT, Dry Weight Start Date: 11/21/24 Status: Ordered Medication Dispense Status: Completed Quantity: 90.0 Unit: tablet Total Allowed Fills: 1 Fills Dispensed: 0 Indications: Hypothyroidism, unspecified; lithium 300 mg oral tablet = 300 mg, By Mouth, 2 times a day, # 60 tablet, 0 Refills, Maintenance, 03/07/24 9:48:00 AM EST, Tablet, [facility] #[id number], Partial fill upon patient request if the prescription is for a schedule II opioid drug., 160, cm, 03/06/24 8:41:00 EST, Height, 69.9, kg, 02/25/24 20:33:00 EST, Dry Weight Start Date: 03/07/24 Status: Ordered Medication Dispense Status: Completed Quantity: 60.0 Unit: tablet Total Allowed Fills: 1 Fills Dispensed: 0 magnesium oxide 400 mg oral tablet 1 tablet = 400 mg, By Mouth, Daily, for 90 days, for headache prevention stop if diartrhea, # 90 tablet, 2 Refills, Acute 09/15/25 11:04:00 AM EDT, 12/19/24 11:04:00 AM EDT, Tablet, [facility]/pharmacy #[id number], Partial fill upon patient request if the prescription is for a schedule II opioid drug., 160, cm, 12/19/24 10:27:00 EDT, Height, 73, kg, 12/11/24 23:04:00 EDT, Dry Weight Start Date: 12/19/24 Stop Date: 09/15/25 Status: Ordered Medication Dispense Status: Completed Quantity: 90.0 Unit: tablet Total Allowed Fills: 3 Fills Dispensed: 0 omeprazole 40 mg oral enteric coated capsule 1 capsule = 40 mg, By Mouth, 2 times a day, Recommend take it twice a day for 2 weeks then reduce to a daily dose, # 60 capsule, 3 Refills, Maintenance, 09/23/24 9:58:00 AM EDT, EC Capsule, [facility]/pharmacy #[id number], Partial fill upon patient request if the prescription is for a schedule II opioid drug., 161, cm, 09/16/24 14:12:00 EDT, Height, 61, kg, 09/16/24 14:12:00 EDT, Dry Weight Start Date: 09/23/24 Stop Date: 01/21/25 Status: Ordered Medication Dispense Status: Completed Quantity: 60.0 Unit: capsule Total Allowed Fills: 4 Fills Dispensed: 0 ProAir HFA 90 mcg/inh inhalation aerosol 2 puffs, Inhalation, 4 times a day, PRN as needed for wheezing, # 18 Gm, 0 Refills, Maintenance, 03/17/24 4:33:00 PM EST, Aerosol, [facility] #[id number], Partial fill upon patient request if theprescription is for a schedule II opioid drug., 2 puffs Inhalation 4 times a day,PRN:as needed for wheezing, 160, cm, 03/17/24 14:57:00 EST, Height, 69.9, kg, 02/25/24 20:33:00 EST, Dry Weight Start Date: 03/17/24 Status: Ordered Medication Dispense Status: Completed Quantity: 18.0 Unit: g Total Allowed Fills: 1 Fills Dispensed: 0 Indications: Acute bronchitis, unspecified; Shortness of breath; Probiotic Formula By Mouth, Daily, 0 Refills, Maintenance, 04/15/24 9:00:00 AM EST, Partial fill upon patient request if the prescription is for a schedule II opioid drug. Start Date: 04/15/24 Status: Ordered Medication Dispense Status: Completed Total Allowed Fills: 1 Fills Dispensed: 0 propranolol 20 mg oral tablet 20 mg, 1, tablet, By Mouth, 2 times a day, # 60 tablet, Refills 1, Tot. Refills 1, Maintenance, 06/24/24 8:23:00 AM EDT, Route to Pharmacy Electronically, [facility]/pharmacy #[id number], Partial fill upon patientrequest if the prescription is for a schedule II opioid drug., 160, cm, 06/24/24 8:03:00 EDT, Height, 64, kg, 06/17/24 15:38:00 EST, Dry Weight Start Date: 06/24/24 Status: Ordered Medication Dispense Status: Completed Quantity: 60.0 Unit: tablet Total Allowed Fills: 2 Fills Dispensed: 0 Indications: Hypothyroidism, unspecified; Palpitations; riboflavin 400 mg oral tablet 1 tablet = 400 mg, By Mouth, Daily, for headache prevention, # 90 tablet, 3 Refills, Maintenance, 12/19/24 11:04:00 AM EDT, Tablet, [facility]/pharmacy #[id number], Partial fill upon patient request if the prescription is for a schedule II opioid drug., 160, cm, 12/19/24 10:27:00 EDT, Height, 73, kg, 12/11/24 23:04:00 EDT, Dry Weight Start Date: 12/19/24 Stop Date: 12/14/25 Status: Ordered Medication Dispense Status: Completed Quantity: 90.0 Unit: tablet Total Allowed Fills: 4 Fills Dispensed: 0 Slynd 4 mg oral tablet 1 tablet = 4 mg, By Mouth, Daily, # 28 tablet, 0 Refills, Maintenance, 12/27/24 3:43:00 PM EDT, Tablet, Partial fill upon patient request if the prescription is for a schedule II opioid drug. Start Date: 12/27/24 Status: Ordered Medication Dispense Status: Completed Quantity: 28.0 Unit: tablet Total Allowed Fills: 1 Fills Dispensed: 0 tiZANidine 2 mg oral tablet 4 mg, 2, tablet, By Mouth, Daily at bedtime, PRN, not to exceed 3 doses/day, # 30 tablet, Refills 2, Tot. Refills 2, Maintenance, as needed for neck muscle spasm, 01/02/25 12:20:00 PM EDT, Route to Pharmacy Electronically, [facility]/pharmacy #[id number], Partial fill upon patient request if the prescription is for a schedule II opioid drug., 160, cm, 01/02/25 10:11:00 EDT, Height, 78.9, kg, 12/27/24 23:12:00 EDT, Dry Weight Start Date: 01/02/25 Stop Date: 04/02/25 Status: Ordered Medication Dispense Status: Completed Quantity: 30.0 Unit: tablet Total Allowed Fills: 3 Fills Dispensed: 0 Mental Status Mental Status Assessment Assessment Assessment Component Result Effecti ve Date Patient Health Questionnaire 2 item (PHQ-2) total score [Reported] 0 02/06/25 Problem List Condition Confirmation Course Effective Dates Status H ealth Status Informant Abdominal pain in female Confirmed Active Chest pain Confirmed Active Costochondritis Confirmed Active Depressive Disorder, Not Elsewhere Classified Confirmed 10/07/10 Active Difficulty breathing Confirmed Active Eating disorder NOS Confirmed 10/07/10 Active Cutaneous eruption Confirmed Active Family history of rheumatoid arthritis Confirmed Active Hypothyroidism Confirmed Active Bipolar 1 disorder, mixed 1 Confirmed Active Pain in joint, multiple sites Confirmed Active Vaping nicotine dependence, tobacco product Confirmed Active Obese class I Confirmed Active POTS (postural orthostatic tachycardia syndrome) Confirmed Active Seasonal asthma Confirmed Active Smoker Confirmed Active Vasovagal syncope Confirmed Active Wheezing Confirmed Active 1seeing Francy Hellen - Diagnosis Diagnosis Type Effective Dates Health Status Clinical Service Informant Chest pain Discharge Diagnosis 02/06/25 Difficulty breathing Discharge Diagnosis 02/06/25 POTS (postural orthostatic tachycardia syndrome) Discharge Diagnosis 02/06/25 Costochondritis Discharge Diagnosis 02/06/25 Vaping nicotine dependence, tobacco product Discharge Diagnosis 02/08/25 Cutaneous eruption Discharge Diagnosis 02/08/25 Vital Signs Most recent to oldest [Reference Range]: 1 Height 160 cm (02/06/25 8:34 AM) Weight 79.4 kg (02/06/25 8:34 AM) Oxygen Saturation [94-100 %] 99 % (02/06/25 8:34 AM) Pulse Rate [55-90 bpm] 94 bpm *H* (02/06/25 8:34 AM) Body Mass Index [18.5-24.99 kg/m2] 31.02 kg/m2 *H* (02/06/25 8:34 AM) Blood Pressure [90-138/55-84 mm Hg] 126/ 88mm Hg (02/06/25 8:34 AM) Mode of Delivery (Oxygen) Room air (02/06/25 8:34 AM) Blood pressure sites Arm, right (02/06/25 8:34 AM) Dry Weight 79.4 kg (02/06/25 8:34 AM) Weight Obtained Via Standing scale (02/06/25 8:34 AM) Dry Weight Obtained Via Standing scale (02/06/25 8:34 AM) Social History Social History Type Response Smoking Status Former smoker, quit more than 30 days ago entered on: 03/13/22 Sexual Orientation Self described orien tation: ; Straight or heterosexual Sex Sex Representation Female (finding) Patient Care team information Care Team Personnel Name: Grace Card MD Position: [facility] Physician - Primary Care Member Role: PCP Address: [address] [place] [address] Telecom: Name: Emily Rock RN Position: [facility] RN Member Role: Primary Care Nurse Name: Beba Rosas RN Position: S RN Member Role: Primary Care Nurse Name: Jocelyn Francis RN Position: S RN Member Role: Primary Care Nurse Name: Fina Oakes RN Position: S RN Member Role: Primary Care Nurse Name: Tatum Salazar RN Position: [facility] RN Supmario alberto Member Role: Primary Care Nurse Name: Edgar Salas RN Position: S RN Member Role: Primary Care Nurse Name: Deandre Hollingsworth RN Position: S RN Member Role: Primary Care Nurse Care Team Related Persons Name: GEGE FLORES Name: NIKI FLORES Name: SHREE SCHAEFER Name: KALYAN ZENDEJAS Insurance Providers Guarantor name: SHANTANU RICHEY Health Plan Information #: 1 Payer: [employer] Payer Identifier: VICTORINO Member Number: [id number] Group Number: [id number] Subscriber Identifier: [id number] Relationship to Subscriber: self Coverage Type: Medicaid (Managed Care) Coverage Verification Date: NA Telecom: VICTORINO Address: NA
--- NOTE | ~2025-02-18 | CT_ITS ---
CLINICAL HISTORY: Left-sided facial droop numbness rule out LVO CT angiography head and neck with contrast. 3D Post-processing. Comparison: CT/REG/SR - HEAD STROKE_BRAIN (ADULT) - 02/18/25 09:57 EST Findings: CTA head: No intracranial large vessel occlusion. No dissection or aneurysm. The intracranial segments of the internal carotid arteries are patent bilaterally. Intradural vertebral arteries are patent. Anterior and posterior circulation are patent. No abnormal postcontrast enhancement. CTA neck: There is a normal branching pattern of the aortic arch. The right common, internal and external carotid arteries are patent with no significant stenosis. The left common, internal and external carotid arteries are patent with no significant stenosis. The vertebral arteries are patent. Impression: There is no intracranial large vessel occlusion detected. No significant atherosclerotic disease or evidence of stenosis of the neck vasculature. This document has been electronically signed by: Maynor Garcia MD on 02/18/2025 10:31:47
--- NOTE | ~2025-02-18 | CT_ITS ---
CLINICAL HISTORY: Left facial droop, left sided numbness, headache --- Additional Notes or Special Instructions: Rule out stroke, bleed CT head without contrast Comparison: 06/15/2024 Findings: No intra-axial mass, midline shift, hydrocephalus, or acute hemorrhage. No significant atrophy-like change or white matter disease. There is no sinus or mastoid fluid. The orbits are within normal limits. No skull fracture. IMPRESSION: 1. No acute intracranial findings. This document has been electronically signed by: Maynor Garcia MD on 02/18/2025 10:19:07
[2025-02-18 09:52] VITALS: BP 125/82; PULSE 90; RESP 16; TEMP 37; O2SAT 100; BMI 30.8
--- NOTE | 2025-02-18 09:54 | ECG_ITS ---
Test Reason : STROKE Blood Pressure : */* mmHG Vent. Rate : 81 BPM Atrial Rate : 81 BPM P-R Int : 142 ms QRS Dur : 64 ms QT Int : 376 ms P-R-T Axes : 41 58 39 degrees QTcB Int : 436 ms Normal sinus rhythm Normal ECG When compared with ECG of 15-Jun-2024 13:52, No significant change was found Referred By: Manuel Silverio Electronically Signed By: Joshua Horton
--- NOTE | 2025-02-18 09:54 | ED.NEUROSD ---
HPI - Neuro Symptoms/Deficit General Chief Complaint: Stroke Stated Complaint: quest stoke, facial numbness sent by MD Time Seen by Provider: 02/18/25 09:51 Source: patient Mode of arrival: wheelchair Limitations: no limitations History of Present Illness ED Provider: Dr. Manuel Silverio HPI Narrative: 29-year-old female with a history of asthma, vasovagal syncope, bulimia, anorexia, hypothyroidism, bipolar disorder, migraine headaches, hypothyroidism who presents emergency department for evaluation of headache, left facial droop and left-sided numbness. Patient states that last night at around 22:00 hours she had a sudden onset of severe frontal headache headache which was 10/10 at its worst States she has had similar severe headaches in the past. Patient had associated left facial numbness with facial droop, left arm and leg numbness. 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 Patient was evaluated at triage and made a stroke alert. At the time my evaluation the patient had a left facial droop with decreased sensation to her left face, arm and leg with no associated weakness. She had no difficulty thinking, no expressive or receptive aphasia. Her NIH stroke scale was 3, secondary to left facial partial paralysis and sensory deficit on left. Related Data Home Medications ?Medication ?Instructions ?Recorded ?Confirmed L.acidophilus-B.animalis-B.bifidum 1 cap PO DAILY 03/22/24 03/22/24 25 billion cell-FOS 100 mg capsule (Probiotic Complex) alprazolam 0.25 mg tablet 0.25 - 0.5 mg PO DAILY panic attack 03/22/24 03/22/24 divalproex 250 mg tablet,extended 250 mg PO BEDTIME 03/22/24 03/22/24 release 24 hr divalproex 500 mg tablet,extended 500 mg PO BEDTIME 03/22/24 03/22/24 release 24 hr levothyroxine 100 mcg tablet 100 mcg PO DAILY 03/22/24 03/22/24 lithium carbonate 300 mg tablet 300 mg PO BID 03/22/24 03/22/24 Previous Rx's ?Medication ?Instructions ?Recorded cariprazine 3 mg capsule 3 mg PO DAILY #30 caps 03/22/24 dextroamphetamine-amphetamine ER 50 mg (2 x 25 mg) PO DAILY 30 days 04/12/24 25 mg 24hr capsule,extend release #60 caps (Adderall XR) prazosin 1 mg capsule 1 mg PO BID #30 caps 04/12/24 metoclopramide HCl 10 mg tablet 10 mg PO Q6H PRN nausea , 02/18/25 (Reglan) vomiting, headache #20 tabs Allergies Allergy/AdvReac Type Severity Reaction Status Date / Time lamotrigine (From Lamictal) Allergy Hives Verified 02/18/25 09:54 Seasonal Allergies Allergy Sneezing Verified 02/18/25 09:54 Review of Systems Review of Systems: Yes all other systems are reviewed and are negative [facility] Past Medical History [facility] Narrative: Social history: She vapes nicotine products. Denies drug and alcohol use. Medical History (Updated 02/18/25 @ 14:01 by Manuel Silverio MD) Seasonal asthma Vasovagal syncope Bulimia Anorexia Hypothyroidism Surgical History (Updated 03/25/24 @ 12:35 by Palak Walsh RN) H/O shoulder surgery Social History Social History Household Members: Other Household Members Other:: Partners Mother Comment: Rekha's discharge date is scheduled for 04/12/24. Patient Tobacco Use Status: Current everyday Tobacco user Years Smoked: 4 Physical Exam Vital Signs: Vital Signs: Last Vital Signs Temp 97.7 F 02/18/25 14:18 Pulse 72 02/18/25 14:18 Resp 16 02/18/25 14:18 BP 107/74 02/18/25 14:18 Pulse Ox 100 02/18/25 14:18 O2 Del Method Room Air 02/18/25 14:18 BMI result Body Mass Index 30.8 Vital signs were normal Exam: General: Awake, alert in no distress Head: Normocephalic, atraumatic EENT: PERRL, sclera and conjunctiva are normal, mouth with no erythema or exudates Neck: Supple, no adenopathy Lung: breath sounds symmetric, no wheezing, no rales and no rhonchi Chest: symmetric movement, nontender Heart: regular rate and rhythm, normal S1, S2 no murmurs or rubs Abdomen: soft, non-tender, nondistended, normal bowel sounds Back: no vertebral tenderness, no CVAT Extremities: no deformities, moves all extremities symmetrically, no edema Neuro: General: ?Awake, alert, oriented, normal speech Cranial nerves: ?Left facial droop sparing the forehead otherwise cranial nerves intact Strength: ?Moves all extremities symmetrically, strength 5/5 Cerebellar: ?Good jdysqx-ge-rsxq-to-finger, good rapid finger movement, normal heel to rowan Sensory: Diminished noxious stimuli left face, neck, arm, leg compared to rate Psych: Pleasant, cooperative Medications Administered Discontinued Medications Generic Name Dose Route Start Last Admin Trade Name Lopez PRN Reason Stop Dose Admin Diphenhydramine HCl 50 mg 02/18/25 10:21 02/18/25 10:45 Diphenhydramine Hcl 50 Mg/Ml Vial IVPUSH 02/18/25 10:22 50 mg ONCE STA Administration Iohexol 100 ml 02/18/25 10:05 02/18/25 10:05 Iohexol 350 Mg/Ml 100 Ml Infus..Btl IV 02/18/25 10:06 85 ml ONCE ONE Administration Metoclopramide HCl 10 mg 02/18/25 10:21 02/18/25 10:46 Metoclopramide Hcl 10 Mg/2 Ml Vial IVPUSH 02/18/25 10:22 10 mg ONCE STA Administration Morphine Sulfate 4 mg 02/18/25 10:21 02/18/25 10:45 Morphine Sulfate 4 Mg/Ml Cartridge IVPUSH 02/18/25 10:22 4 mg ONCE STA Administration Protocol Medical Decision Making Medical Decision Making MDM Narrative: 29-year-old female with a history of asthma, vasovagal syncope, bulimia, anorexia, hypothyroidism, bipolar disorder, migraine headaches, hypothyroidism who presents emergency department for evaluation of headache, left facial droop and left-sided numbness. Last well-known time was 22:00 hours last night when she had a sudden onset of severe headache 01/20. Patient was told by her neurologist that she was at high-risk for stroke secondary to carotid disease therefore she came to the emergency department. On initial evaluation she had partial left-sided facial paralysis and diminished noxious stimuli on the left side of her body. NIH stroke scale was 3. Patient was complaining of the headache at the time of presentation in his well. Differential diagnosis: ?Includes but is not limited to intracranial hemorrhage, stroke, carotid dissection, complex migraine Course: My independent interpretation patient's laboratory evaluation is as follows: CBC was normal. CMP was normal. Urine test was negative. Urine microscopic revealed no bacteria. CT scan of the head revealed no acute findings. CT angiogram of the head and neck revealed no acute findings or evidence for acute stenosis. I did discuss the patient's presentation with the covering neurologist, Dr. Nowak. His impression was the patient had a complex migraine and recommended against giving TNK. Dr. Nowak did evaluate the patient in the emergency department as well. The patient was treated with morphine 4 mg IV, Reglan 10 mg IV and Benadryl 50 mg IV. Patient's left facial droop completely resolved. She states that her left-sided paresthesias improved but did not resolve completely. I did discuss complex migraines with the patient. Patient was advised to take the following migraine cocktail regimen every 6 hours as needed for headaches: Reglan 10 mg, Benadryl 50 mg, acetaminophen 1000 mg. She was given printed and verbal instructions. I did put the patient's CT head and CT angiogram head and neck readings at the end of the discharge papers and told her that she should discuss these with her neurologist and clarify the neurologist statement regarding her carotid arteries. I told her that in the future if she develops a headache with stroke-like symptoms she should tell the providers that she has had complex migraines in the past with similar symptoms urine. Differential Diagnosis Differential Diagnoses: The differential diagnosis associated with the presentation includes (See above) Admission/Observation Consideration of admission/observation: Escalation of care including admission/observation considered (Yes) Consult Healthcare Provider Management of the patient was discussed with: Administrative Medical Director (Neurologist: Dr. Nowak) Lab Data MDM Lab Attestation statement: I reviewed the patient's lab results. 02/18/25 10:00 02/18/25 10:00 Labs: Lab Results 02/18/25 02/18/25 02/18/25 Range/Units 10:00 10:00 10:00 WBC 8.2 (4.8-10.8) X10*3/uL RBC 4.62 (4.20-5.50) X10*6/uL Hgb 14.6 (12.0-16.0) g/dl Hct 43.8 (37.0-47.0) % MCV 94.8 (80.0-98.0) fL MCH 31.6 (27.0-33.0) pg MCHC 33.3 (31.0-35.0) g/dl RDW 11.9 (11.0-16.0) % Plt Count 296 (160-400) X10*3/uL MPV 8.6 L (9.4-12.3) fL Immature Gran % (Auto) 0.4 (0.0-0.4) % Neut % (Auto) 55.6 (45-73) % Lymph % (Auto) 34.2 (20-40) % [place] % (Auto) 7.8 (2-11) % Eos % (Auto) 1.5 (0-4) % Baso % (Auto) 0.5 (0-2) % Lymph # (Auto) 2.8 (1.2-4.9) X10*3/uL [place] # (Auto) 0.6 (0.1-1.2) X10*3/uL Eos # (Auto) 0.1 (0.0-0.4) X10*3/uL Baso # (Auto) 0.0 (0.0-0.2) X10*3/uL Abs Immat Gran (auto) 0.03 (0.00-0.03) X10*3/uL Absolute Neuts (auto) 4.5 (2.0-8.3) x10*3/uL Absolute Nucleated RBC 0.000 (0.0-0.012) X10*3/uL Nucleated RBC % (auto) 0.0 (0.0-0.2) /100WBC Hold Purple Top SEE NOTE PT 11.3 (11.2-13.5) SEC INR 0.9 (0.9-1.1) APTT 28.3 (26.7-34.1) SEC Sodium 138 (135-145) mmol/L Potassium 4.1 (3.3-5.1) mmol/L Chloride 106 (96-108) mmol/L Carbon Dioxide 24 (22-29) mmol/L Anion Gap 12 (12-20) BUN 8 L (9-16) mg/dL Creatinine 1.00 (0.5-1.4) mg/dL Estim Creat Clear Calc 81.0 Estimated GFR > 60 POC Glucose 91 (60-115) mg/dL Random Glucose 99 (60-115) mg/dL Calcium 9.2 (8.4-10.2) mg/dL Total Bilirubin 0.5 (0.0-1.0) mg/dL Direct Bilirubin 0.2 (0.0-0.5) mg/dL AST 50 H (5-31) U/L ALT 13 (0-31) U/L Alkaline Phosphatase 78 (39-117) U/L Troponin I High Sens < 2.7 (<3.5-17.0) ng/L Total Protein 7.4 (6.5-8.0) g/dL Albumin 4.6 (3.5-5.0) g/dL Triglycerides 145 (<150) mg/dL Cholesterol 175 (<200) mg/dL LDL Cholesterol, Calc 105 H (<100) mg/dL HDL Cholesterol 41 (>40) mg/dL Beta HCG, Quant < 2 Cancelled mIU/mL Urine Color Urine Appearance Urine pH (5.0-9.0) Ur Specific [place] (1.005-1.025) Urine Protein (Neg-Trace) mg/dL Urine Glucose (UA) (Negative) mg/dL Urine Ketones (Negative) mg/dL Urine Blood (Negative) Urine Nitrite (Negative) Ur Leukocyte Esterase (Negative) Urine RBC (0-2) /HPF Urine WBC (0-5) /HPF Ur Squamous Epith Cells (0-2) /HPF Urine Bacteria (None Seen) Hyaline Casts (0-2) /LPF Urine Yeast Urine Opiates Screen (Not Detect) Ur Buprenorphine Scrn (Not Detect) ng/mL Ur Oxycodone Screen (Not Detect) ng/mL Urine Methadone Screen (Not Detect) ng/mL Urine Fentanyl Screen (Not Detect) Ur Barbiturates Screen (Not Detect) Ur Phencyclidine Scrn (Not Detect) Ur Amphetamines Screen (Not Detect) U Benzodiazepines Scrn (Not Detect) Urine Cocaine Screen (Not Detect) U Marijuana (THC) Screen (Not Detect) Ethyl Alcohol < 10 Cancelled mg/dL 02/18/25 Range/Units 11:34 WBC (4.8-10.8) X10*3/uL RBC (4.20-5.50) X10*6/uL Hgb (12.0-16.0) g/dl Hct (37.0-47.0) % MCV (80.0-98.0) fL MCH (27.0-33.0) pg MCHC (31.0-35.0) g/dl RDW (11.0-16.0) % Plt Count (160-400) X10*3/uL MPV (9.4-12.3) fL Immature Gran % (Auto) (0.0-0.4) % Neut % (Auto) (45-73) % Lymph % (Auto) (20-40) % [place] % (Auto) (2-11) % Eos % (Auto) (0-4) % Baso % (Auto) (0-2) % Lymph # (Auto) (1.2-4.9) X10*3/uL [place] # (Auto) (0.1-1.2) X10*3/uL Eos # (Auto) (0.0-0.4) X10*3/uL Baso # (Auto) (0.0-0.2) X10*3/uL Abs Immat Gran (auto) (0.00-0.03) X10*3/uL Absolute Neuts (auto) (2.0-8.3) x10*3/uL Absolute Nucleated RBC (0.0-0.012) X10*3/uL Nucleated RBC % (auto) (0.0-0.2) /100WBC Hold Purple Top PT (11.2-13.5) SEC INR (0.9-1.1) APTT (26.7-34.1) SEC Sodium (135-145) mmol/L Potassium (3.3-5.1) mmol/L Chloride (96-108) mmol/L Carbon Dioxide (22-29) mmol/L Anion Gap (12-20) BUN (9-16) mg/dL Creatinine (0.5-1.4) mg/dL Estim Creat Clear Calc Estimated GFR POC Glucose (60-115) mg/dL Random Glucose (60-115) mg/dL Calcium (8.4-10.2) mg/dL Total Bilirubin (0.0-1.0) mg/dL Direct Bilirubin (0.0-0.5) mg/dL AST (5-31) U/L ALT (0-31) U/L Alkaline Phosphatase (39-117) U/L Troponin I High Sens (<3.5-17.0) ng/L Total Protein (6.5-8.0) g/dL Albumin (3.5-5.0) g/dL Triglycerides (<150) mg/dL Cholesterol (<200) mg/dL LDL Cholesterol, Calc (<100) mg/dL HDL Cholesterol (>40) mg/dL Beta HCG, Quant mIU/mL Urine Color Yellow Urine Appearance Clear Urine pH 8.0 (5.0-9.0) Ur Specific [place] >= 1.030 H (1.005-1.025) Urine Protein Negative (Neg-Trace) mg/dL Urine Glucose (UA) Negative (Negative) mg/dL Urine Ketones Negative (Negative) mg/dL Urine Blood Negative (Negative) Urine Nitrite Negative (Negative) Ur Leukocyte Esterase Small (1+) H (Negative) Urine RBC 0-2 (0-2) /HPF Urine WBC 0-5 (0-5) /HPF Ur Squamous Epith Cells 0-2 (0-2) /HPF Urine Bacteria None Seen (None Seen) Hyaline Casts 0-2 (0-2) /LPF Urine Yeast Present Urine Opiates Screen POSITIVE H (Not Detect) Ur Buprenorphine Scrn Not Detected (Not Detect) ng/mL Ur Oxycodone Screen Not Detected (Not Detect) ng/mL Urine Methadone Screen Not Detected (Not Detect) ng/mL Urine Fentanyl Screen Not Detected (Not Detect) Ur Barbiturates Screen Not Detected (Not Detect) Ur Phencyclidine Scrn Not Detected (Not Detect) Ur Amphetamines Screen POSITIVE H (Not Detect) U Benzodiazepines Scrn Not Detected (Not Detect) Urine Cocaine Screen Not Detected (Not Detect) U Marijuana (THC) Screen Not Detected (Not Detect) Ethyl Alcohol mg/dL Independent Interpretation I performed an independent interpretation of an: EKG Interpretation: My independent interpretation patient's 12 EKG done on 02/18/2025 at 10:12 hours is as follows: Normal sinus rhythm rate of 81, normal AL interval, QRS duration QTC interval, no ST segment elevation, no ST segment depression, no T-wave abnormalities. Compared to EKG dated 06/15/2024 at 13:52 hours, there is no significant change. Today's EKG is a normal EKG. Radiology Impression Discussion of test interpretation with radiology: I discussed test interpretation with the radiologist and I have reviewed the radiologist's reading. Radiologist Impression: CT angiography head and neck with contrast. 3D Post-processing. Comparison: CT/REG/SR - HEAD STROKE_BRAIN (ADULT) - 02/18/25 09:57 EST Findings: CTA head: No intracranial large vessel occlusion. No dissection or aneurysm. The intracranial segments of the internal carotid arteries are patent bilaterally. Intradural vertebral arteries are patent. Anterior and posterior circulation are patent. No abnormal postcontrast enhancement. CTA neck: There is a normal branching pattern of the aortic arch. The right common, internal and external carotid arteries are patent with no significant stenosis. The left common, internal and external carotid arteries are patent with no significant stenosis. The vertebral arteries are patent. Impression: There is no intracranial large vessel occlusion detected. No significant atherosclerotic disease or evidence of stenosis of the neck vasculature. This document has been electronically signed by: Maynor Garcia MD on 02/18/2025 10:31:47 CT head without contrast Comparison: 06/15/2024 Findings: No intra-axial mass, midline shift, hydrocephalus, or acute hemorrhage. No significant atrophy-like change or white matter disease. There is no sinus or mastoid fluid. The orbits are within normal limits. No skull fracture. IMPRESSION: 1. No acute intracranial findings. This document has been electronically signed by: Maynor Garcia MD on 02/18/2025 10:19:07 Chronic Conditions Patient?s care impacted by: Other (Asthma, migraine headaches, hypothyroidism) NIH Stroke Scale Internal: Initial- Upon Arrival Level of Consciousness: Alert Level of Consciousness Questions: Answers both questions correctly Level of Consciousness Commands: Performs both tasks correctly Best Gaze: Normal Visual: No visual loss Facial Palsy: Partial paralysis Motor Arm (Right): No drift Motor Arm (Left): No drift Motor Leg (Right): No drift Motor Leg (Left): No drift Limb Ataxia: Absent Sensory: Mild to moderate sensory loss Best Language: No aphasia Dysarthia: Normal Extinction and Inattention: No abnormality Score: 3 Discharge Plan Discharge Clinical Impression: Complicated migraine, Facial droop, Arm paresthesia, left, Left leg paresthesias Patient Disposition: Home, Self-Care Additional Instructions: On initial presentation you did have a left facial droop with diminished noxious stimuli (pinprick) to the left side of your body. You also had a headache on presentation. The CT scan of your head revealed no bleeding in the brain or stroke. CT angiogram of your head and neck revealed no blockages of the blood vessels of your brain or neck and no significant narrowing/stenosis of your arteries. Your presentation and symptoms are consistent with a complicated/complex migraine syndrome. Migraines can mimic a stroke. You were treated with morphine 4 mg IV, Reglan 10 mg IV and Benadryl 50 mg IV with improvement of your symptoms which again goes along with a complex migraine syndrome. I want you to take the following 3 medications together every 6 hours as needed for headache, nausea or vomiting. Reglan (metoclopramide) in 10 mg, 1 pill Benadry (diphenhydramine) l 25 mg, 2 pills Extra-strength Tylenol 500 mg, 2 pills After you take these medications, lie down in a dark quiet room and try to fall asleep. ?These medications will make you sleepy, do not drive or work after taking these medications. Follow-up with your doctor in 2 days. Please return to the emergency department if your symptoms get worse or if you develop any symptoms that are concerning to you. I want you to follow up with your neurologist to discuss your CT head and angiogram results so that your neurologist compared this to the MRI results that you had. CT head without contrast Comparison: 06/15/2024 Findings: No intra-axial mass, midline shift, hydrocephalus, or acute hemorrhage. No significant atrophy-like change or white matter disease. There is no sinus or mastoid fluid. The orbits are within normal limits. No skull fracture. IMPRESSION: 1. No acute intracranial findings. This document has been electronically signed by: Maynor Garcia MD on 02/18/2025 10:19:07 CT angiography head and neck with contrast. 3D Post-processing. Comparison: CT/REG/SR - HEAD STROKE_BRAIN (ADULT) - 02/18/25 09:57 EST CLINICAL HISTORY: Left-sided facial droop numbness rule out LVO Findings: CTA head: No intracranial large vessel occlusion. No dissection or aneurysm. The intracranial segments of the internal carotid arteries are patent bilaterally. Intradural vertebral arteries are patent. Anterior and posterior circulation are patent. No abnormal postcontrast enhancement. CTA neck: There is a normal branching pattern of the aortic arch. The right common, internal and external carotid arteries are patent with no significant stenosis. The left common, internal and external carotid arteries are patent with no significant stenosis. The vertebral arteries are patent. Impression: There is no intracranial large vessel occlusion detected. No significant atherosclerotic disease or evidence of stenosis of the neck vasculature. This document has been electronically signed by: Maynor Garcia MD on 02/18/2025 10:31:47 Prescriptions: New metoclopramide HCl [Reglan] 10 mg tablet 10 mg PO Q6H PRN (Reason: nausea , vomiting, headache) Qty: 20 0RF No Action levothyroxine 100 mcg tablet 100 mcg PO DAILY alprazolam 0.25 mg tablet 0.25 - 0.5 mg PO DAILY divalproex 500 mg tablet extended release 24 hr 500 mg PO BEDTIME lithium carbonate 300 mg tablet 300 mg PO BID divalproex 250 mg tablet extended release 24 hr 250 mg PO BEDTIME Probiotic Complex 25 billion cell -100 mg Capsule 1 cap PO DAILY cariprazine 3 mg capsule 3 mg PO DAILY Qty: 30 0RF dextroamphetamine-amphetamine [Adderall XR] 25 mg Capsule,Extended Release 24hr 50 mg PO DAILY 30 Days Qty: 60 0RF prazosin 1 mg capsule 1 mg PO BID Qty: 30 0RF Rx Instructions: *Dose change* Interventions: ED Discharge Assessment Last Done: 02/18/25 14:18 Discharge Date/Time: 02/18/25 14:18 Print Language: Citizen Of [place]
[2025-02-18] MEDS: iohexoL 350 MG/ML 100 ML INFUS..BTL IV (10:05)
[2025-02-18 10:06] LABS: Glucose, Whole Blood 91 mg/dL (60-115)
[2025-02-18 10:07] LABS: MANUAL DIFF FLAG NO
[2025-02-18 10:11] VITALS: BP 113/63; PULSE 84; RESP 18; O2SAT 96
[2025-02-18 10:12] LABS: Hematocrit 43.8 % (37.0-47.0); Hemoglobin 14.6 g/dl (12.0-16.0); Imm Gran Abs Auto 0.03 X10*3/uL (0.00-0.03); Imm Gran Pct Auto 0.4 % (0.0-0.4); Lymphocytes Absolute Auto 2.8 X10*3/uL (1.2-4.9); Mean Corpuscular HGB Conc 33.3 g/dl (31.0-35.0); Mean Corpuscular Hemoglobin 31.6 pg (27.0-33.0); Mean Corpuscular Volume 94.8 fL (80.0-98.0); NRBC Abs Auto 0.000 X10*3/uL (0.0-0.012); NRBC Pct Auto 0.0 /100WBC (0.0-0.2); Platelet Count 296 X10*3/uL (160-400); Red Blood Count 4.62 X10*6/uL (4.20-5.50); White Blood Count 8.2 X10*3/uL (4.8-10.8)
--- NOTE | 2025-02-18 10:16 | PC.NURSE ---
Pt showing signs of improvement/ left facial droop (limited to mouth) is improving but still present. slight weakness in left grasp. pt reports decreased sensation with sharp object on left arm as compaired to right but also improving. no weakness in BLE. Pt has a headache 5/10 but was worse last night at 10/10. speech is clear. no visual changes. skin pwd. unlabored resp. pt is calm. denies dizziness
[2025-02-18 10:17] LABS: INTERNATIONAL NORM RATIO 0.9 (0.9-1.1); Prothrombin Time 11.3 SEC (11.2-13.5)
[2025-02-18 10:20] LABS: Partial Thromboplastin Time 28.3 SEC (26.7-34.1)
[2025-02-18 10:21] LABS: Stroke Lab Use COMPLETE
--- OUTSIDE RECORDS SUMMARY | 2025-02-18 10:28 | XMS_ITS | Continuity of Care Document ---
Author Organization [place] - [facility], [facility] Address [address] [place] [address] Care Team Providers Care Box Gluer Name Role Phone SEBASTIÁN VANG Primary Care Provider [phone] Assessment Encounter Date Assessment Date Assessment LastModified by Organization Details LastModified Time 11/29/2024 11/29/2024 29 year old female, with a longstanding history of hoarseness since childhood, presents for evaluation of recurrent sinusitis. Anterior rhinoscopy is unremarkable. However, on fiberoptic nasal endoscopy, there is purulent drainage arising from the middle meatus on the left. Culture was obtained from the left nasal cavity. Recommend an additional 7-day course of doxycycline, along with a 5-day course of prednisone. Follow up in 3 weeks to ensure resolution of the infection, at which time a CT of the sinuses will also be performed in the office to assess for underlying sinus disease. We also discussed the possibility of migraine variant in light of her recent and frequent migraine headaches. I provided the patient with the Migraine More than a Headache booklet which lists many environmental and dietary triggers that can lead to migraines, as well as ways to manage these symptoms. I also recommend dietary supplements such as magnesium, Vitamin B2, and feverfew (or Migranol which contains a combination of all three) to help control migrainous phenomena. Additionally, the patient was encouraged to keep a migraine diary to assist with identifying and eliminating potential triggers. She understands and agrees with this plan. All questions were answered. [email or web address] Not available 11/29/2024 15:10:06 Plan of Treatment Reminders Order Date Submit Date Provider Last Modified By Organization Details Last Modified Time Details Appointments None recorded. Lab fungus, culture, unspecified specimen - left nasal cavity 2024 025 JIL [facility] (Centralized Electronic Ordering - All Locations), Patient Can Go To The Location Of Their Choice, 12:17:18 culture, aerobic + anaerobic - left nasal cavity 2024 025 JIL [facility] (Centralized Electronic Ordering - All Locations), Patient Can Go To The Location Of Their Choice, 12:17:18 Referral None recorded. Procedures None recorded. Surgeries None recorded. Imaging CT, sinuses, w/o contrast 2024 025 [email or web address] Not available 11:46:08 Medication Orders doxycycline hyclate 100 mg tablet 2024 025 [facility]/Pharmacy #[id number], [address] [place], [address], 05:01:58 prednisone 20 mg tablet 2024 025 [facility]/Pharmacy #[id number], [address] [place], [address], 15:16:49 Patient TargetsNo targets recorded. Patient InstructionsNo instructions recorded. Reason for Referral None Reported. Results Created Date Observation Date Name Description Value Unit Range Abnormal Flag Note LastModifiedBy Organization Detail LastModifiedTime 11/30/1911/30/2024 FUNGU S CULTU RE WITH STAIN fungus stain Final report Not Available [facility] ([facility]) [address] [facility], [place], [address], 12/28/2024 12:17:18 11/30/1911/30/2024 FUNGU S CULTU RE WITH STAIN result 1 COMMEN T BETZAIDA/C alcof luor prepa ratio n: no fungu s obser hannah. Not Available [facility] ([facility]) [address] [facility], [place], [address], 12/28/2024 12:17:18 08/19/20 25 12/28/2024 FUNGU S CULTU RE WITH STAIN fungus (mycology) culture Final report Not Available [facility] ([facility]) [address] [facility], [place], [address], 12/28/2024 12:17:18 11/30/19 25 12/28/2024 FUNGU S CULTU RE WITH STAIN result 1 COMMEN T No yeast or mold isola eleno after 4 weeks . Not Available [facility] ([facility]) [address] [facility], [place], [address], 12/28/2024 12:17:18 11/30/19 25 12/02/2024 ANAER OBIC AND AEROB IC CULTU RE aerobic culture Final report Not Available [facility] ([facility]) [address] [facility], [place], [address], 12/28/2024 12:17:18 11/30/19 25 12/02/2024 ANAER OBIC AND AEROB IC CULTU RE result 1 Mixed skin stacy Not Available [facility] ([facility]) [address] [facility], [place], [address], 12/28/2024 12:17:18 11/30/1912/03/2024 ANAER OBIC AND AEROB IC CULTU RE anaerobic culture Final report Not Available [facility] ([facility]) [address] [facility], [place], [address], 12/28/2024 12:17:18 11/30/19 25 12/03/2024 ANAER OBIC AND AEROB IC CULTU RE result 1 COMMEN T No anaer obic growt h in 72 hours . Not Available [facility] ([facility]) [address] [facility], [place], [address], 12/28/2024 12:17:18 01/11/20 25 12/27/2024 CT, head + brain , w/o contr ast No observ ation record ed. [email or web address] Not Available 12/14 09:48:18 Result Notes None recorded. 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 2024 FÉLIX LANGSTON MD [address] [facility], [address] [facility], [place], [address], [facility] 10:52:02 Recurrent acute maxillary sinusitis Active 2024 MEG TRUJILLO [address] [facility],[place] [address], [place], [address], [facility] 12:35:15 Migraine 26825417 Active 2024 MEG TRUJILLO [address] [place] [address], [place], [address], [facility] 15:07:48 Postural orthostatic tachycardia syndrome 976393798 Active 2024 MEG TRUJILLO [address] [place] [address], [place], [address], [facility] 15:08:08 Seasonal allergic rhinitis 783913209 Active [address] [facility], [place], [address], [facility] 11:23:50 Problem Notes None recorded. Procedures Surgical History Date Name Laterality Status Provider Name and Address Organization Details Recorded Time 11/30/19 25 NasalEndoscopy_D P completed MEG TRUJILLO [address] [place] [address],[address], [address], [facility] 11/29/2024 15:03:08 10/12/19 25 Fiberoptic Laryngoscopy (Comprehensive) completed FÉLIX LANGSTON MD [address] [facility],[address], [address], [facility] - [facility] 10/11/2024 18:07:56 Imaging Results None recorded. Procedure Notes None recorded. Medical Equipment None Reported. Allergies Allergen ID Allergen Name Allergen Category Reaction Reaction Severity Criticality Documentation Date Start Date Code Code System Note Provider Name and Address Organization Details Recorded Time [id number] Lamictal medicatio n hives moderate Not available 10/11/2024 2 RxNorm Aren friend [place] - [facility] 10:01:31 Medications Name Sig Start Date Stop Date Status Note LastModified by Organization Details LastModified Time tizanidine 2 mg tablet TAKE 2 TABS BY MOUTH EVERY DAY AT BEDTIME NEEDED FOR NECK MUSCLE SPASM. DO NOT EXCEED 3 DOSES/DAY 01/30 completed Not Available Not Available Not Available azithromyci n 250 mg tablet TAKE 1 TABLET BY MOUTH DAILY FOR 4 DAYS 10/11 completed Not Available Not Available Not Available fluconazole 150 mg tablet TAKE 1 TABLET BY MOUTH TODAY. REPEAT DOSE IN 72 HOURS 10/11 completed Not Available Not Available Not Available benzonatate 200 mg capsule TAKE 1 CAPSULE BY MOUTH THREE TIMES DAILY FOR 14 DAYS NEEDED FOR COUGH 10/11 completed Not Available Not Available Not Available prazosin 1 mg capsule TAKE 1 CAPSULE BY MOUTH TWICE A DAY 01/30 completed Not Available Not Available Not Available sucralfate 1 gram tablet TAKE 1 TABLET BY MOUTH 4 TIMES A DAY FOR 10 DAYS NEEDED FOR INDIGESTI ON 10/11 completed Not Available Not Available Not Available phenazopyri dine 200 mg tablet TAKE 1 TABLET BY MOUTH THREE TIMES DAILY AFTER MEALS FOR 2 DAYS NEEDED FOR URINARY DISCOMFOR T WITH FOOD 10/11 completed Not Available Not Available Not Available ondansetron HCl 4 mg tablet TAKE 1 TABLET BY MOUTH EVERY 8 HOURS FOR 2 DAYS NEEDED FOR NAUSEA & VOMITING 01/30 completed Not Available Not Available Not Available prednisone 20 mg tablet TAKE 1 TABLET TWICE A DAY WITH FOOD FOR 5 DAYS 01/30 completed Not Available Not Available Not Available propranolol ER 60 mg capsule,24 hr,extended release TAKE ONE CAPSULE BY MOUTH TWICE DAILY 10/11 completed Not Available Not Available Not Available penicillin V potassium 500 mg tablet TAKE 1 TABLET BY MOUTH TWICE A DAY FOR 10 DAYS 10/11 completed Not Available Not Available Not Available lithium carbonate ER 300 mg tablet,exte nded release TAKE 1 TABLET BY MOUTH EVERY NIGHT AT BEDTIME FOR TOTAL DOSE OF 750MG 10/11 completed Not Available Not Available Not Available meclizine 12.5 mg tablet TAKE 1 TABLET BY MOUTH THREE TIMES DAILY FOR 14 DAYS NEEDED FOR DIZZINESS 10/11 completed Not Available Not Available Not Available omeprazole 40 mg capsule,del ayed release 40 mg every day by oral route. 2024 active Not Available Not Available Not Avai lable lithium carbonate ER 450 mg tablet,exte nded release TAKE 1 TABLET BY MOUTH EVERY NIGHT AT BEDTIME 10/11 completed Not Available Not Available Not Available levothyroxi ne 100 mcg tablet TAKE 1 TABLET BY MOUTH EVERY DAY active Not Available Not Available No t Available levothyroxi ne 88 mcg tablet PLEASE SEE ATTACHED FOR DETAILED DIRECTION S 10/11 completed Not Available Not Available Not Available alprazolam 0.25 mg tablet 0.25 mg as needed by oral route. 2024 active Not Available Not Available Not Avai lable Wellington Saline nasal gel Take 1 applicati on twice a day by nasal route. 2024 active Not Available Not Available Not Avai lable magnesium oxide 400 mg (241.3 mg magnesium) tablet TAKE 1 TABLET BY MOUTH EVERY DAY FOR HEADACHE PREVENTIO N. STOP IF DIARRHEA active Not Available Not Available No t Available lithium carbonate 300 mg capsule TAKE 1 CAPSULE BY MOUTH TWICE A DAY active Not Available Not Available No t Available clotrimazol e-betametha sone 1 %-0.05 % topical cream APPLY TO AFFECTED AREA TWICE DAILY UNTIL RESOLVED. NOT TO EXCEED 4 WEEKS. 10/11 completed Not Available Not Available Not Available divalproex ER 500 mg tablet,exte nded release 24 hr TAKE 1 TABLET BY MOUTH EVERYDAY AT BEDTIME active Not Available Not Available No t Available codeine 10 mg-guaifene sin 100 mg/5 mL oral liquid TAKE 5 ML BY MOUTH EVERY 6 HOURS FOR 7 DAYS NEEDED FOR COUGH AND CONGESTIO N 10/11 completed Not Available Not Available Not Available azelastine 137 mcg (0.1 %) nasal spray SPRAY 2 SPRAYS BY INTRANASA L ROUTE TWICE A DAY active Not Available Not Available No t Available methylpredn isolone 4 mg tablets in a dose pack TAKE 6 TABLETS ON DAY 1 DIRECTED ON PACKAGE AND DECREASE BY 1 TAB EACH DAY FOR A TOTAL OF 6 DAYS 01/09 completed Not Available Not Available Not Available propranolol 20 mg tablet TAKE 1 TABLET BY MOUTH TWICE A DAY active Not Available Not Available No t Available ondansetron 4 mg disintegrat ing tablet TAKE 1 TABLET BY MOUTH EVERY 8 HOURS NEEDED FOR NAUSEA & VOMITING X30 DAYS 01/30 completed Not Available Not Available Not Available lithium carbonate 300 mg tablet TAKE 1 TABLET BY MOUTH TWICE DAILY 10/11 completed Not Available Not Available Not Available fluticasone propionate 50 mcg/actuati on nasal spray,suspe nsion SHAKE LIQUID AND USE 1 SPRAY IN EACH NOSTRIL TWICE DAILY active Not Available Not Available No t Available doxycycline hyclate 100 mg tablet Take 1 tablet twice a day by oral route for 7 days. 12/13 completed Not Available Not Available Not Available amoxicillin 875 mg-potassiu m clavulanate 125 mg tablet TAKE 1 TABLET BY MOUTH EVERY 12 HOURS FOR 7 DAYS 10/11 completed Not Available Not Available Not Available amoxicillin 500 mg-potassiu m clavulanate 125 mg tablet TAKE 1 TABLET BY MOUTH EVERY 12 HOURS FOR 5 DAYS 10/11 completed Not Available Not Available Not Available Ventolin HFA 90 mcg/actuati on aerosol inhaler INHALE 2 PUFFS BY MOUTH FOUR TIMES DAILY NEEDED FOR WHEEZING active Not Available Not Available No t Available Adult Low Dose Aspirin 81 mg tablet 1 mg every 24 hours by oral route. 2024 active Not Available Not Available Not Avai lable Adderall XR 25 mg capsule,ext ended release TAKE 2 CAPSULES BY MOUTH EVERY DAY IN THE MORNING active Not Available Not Available No t Available divalproex ER 250 mg tablet,exte nded release 24 hr TAKE 1 TABLET BY MOUTH EVERYDAY AT BEDTIME active Not Available Not Available No t Available nitrofurant oin monohydrate /macrocryst als 100 mg capsule TAKE 1 CAPSULE BY MOUTH TWICE A DAY FOR 7 DAYS 01/30 completed Not Available Not Available Not Available Neilmed Sinus Rinse Complete with packet Take 1 packet twice a day by nasal route. 2024 active Not Available Not Available Not Avai lable GaviLyte-G 236 gram-22.74 gram-6.74 gram-5.86 gram oral solution DRINK 240 ML BY MOUTH EVERY 10 MINUTES 10/11 completed Not Available Not Available Not Available Probiotic 2023 active Not Available Not Available Not Avai lable lurasidone 40 mg tablet TAKE 1 TABLET BY MOUTH DAILY AT SUPPER 10/11 completed Not Available Not Available Not Available Aerochamber Plus Flow-Vu,Lar ge Mask USE WITH INHALER 10/11 completed Not Available Not Available Not Available Vraylar 4.5 mg capsule TAKE 1 CAPSULE BY MOUTH EVERY MORNING 01/09 completed Not Available Not Available Not Available Vraylar 3 mg capsule TAKE 1 CAPSULE BY MOUTH EVERY DAY 01/30 completed Not Available Not Available Not Available riboflavin (vitamin B2) 400 mg tablet TAKE 1 TABLET BY MOUTH DAILY FOR HEADACHE PREVENTIO N active Not Available Not Available No t Available Slynd 4 mg (28) tablet TAKE 1 TABLET BY MOUTH EVERY DAY active Not Available Not Available No t Available Vitals None Recorded Social History Question Answer Notes LastModified by Organizat ion Details LastModified Time Tobacco Smoking Status Former Smoker Aren friend [place] - [facility] 10/11/2024 10:02:07 What Type Of Sound Assistant Do You Use? None Information not available 10/11/2024 When Did You Quit Smoking? 1-5yearssinc elastcigaret te Information not available 10/11/2024 What Is Your Current Pack Years? 10packyears Information not available 10/11/2024 Do You Have Any Pets? Yes Information not available 10/11/2024 At What Age Did You Start Smoking Tobacco? 16 Information not available 10/11/2024 Are You Passively Exposed To Smoke? Yes Information not available 10/11/2024 Are There Any Smokers In Your House? Yes Information not available 10/11/2024 How Much Tobacco Do You Smoke? 1 PPD Information not available 10/11/2024 How Many Years Have You Smoked Tobacco? 10 Information not available 10/11/2024 How Many Years Have You Used E-cigarettes Or Vape? 5 Information not available 10/11/2024 Sex: Unknown Functional Status Question Answer Note LastModified by Organization Details LastModified Time Do you use any illicit or recreational drugs? No Information not available 10/11/2024 Do you or have you ever used any other forms of tobacco or nicotine? Yes Information not available 10/11/2024 What is your level of alcohol consumption? None Information not available 10/11/2024 Do you or have you ever used smokeless tobacco? Never used smokeless tobacco Information not available 10/11/2024 Do you or have you ever used e-cigarettes or vape? Current user of electronic cigarettes Information not available 10/11/2024 What type of noise exposure are you exposed to? noExposureToExcessiveNoise Infor mation not available 10/11/2024 Mental Status None recorded. Family History Relationship Description Onset Age of this Age Resolved Age Notes LastModified by Organization Details LastModified Time Maternal Grandmother Disorder of thyroid gland [email or web address] Not available 04/2024 10:01:52 Father Migraine grancitelli Not availa ble 10/11/2024 10:01:52 Medical History Condition Response Allergies/Hayfever N Heart Problems N Anxiety Y Tonsil Infections N Emphysema N Migraines Y Thyroid Problems Y Glaucoma N Developmental Delay N Depression Y COPD N Nasal or Sinus Problems N Anemia N Immune System Disorder N Anesthesia Complications N Heart Attack (DE) N Other Skin Condition N Diabetes N Rhinitis N Bleeding Disorder N Food Allergy N Hearing Loss N Arthritis N Hyperlipidemia N Cancer N Stroke N Dementia N Nasal polyps N Asthma Y Sleep Disorder N High Cholesterol N GERD/Reflux Y Liver Disease N Headaches Y Fibromyalgia N Hypertension N Speech Delay N Kidney Disease N Gynecological HistoryNo gynecological history recorded. Obstetrics History GPAL:G 0 P 0 0 0 0 Past Encounters Encounter ID Performer Location Encounter Start Date Encounter Closed Date Diagnosis/Indication Diagnosis SNOMED-CT Code Diagnosis ICD10 Code Diagnosis IMO Codes Diagnosis Note [id number] MEG TRUJILLO [facility] [address] 9 11/29/2024 11:14:53 11/29/2024 12:37:46 Recurrent acute maxillary sinusitis 0514310172 9002641 J01.01 2140448 Migraine 22789405 G43.80 9 9764079 Postural o rthostatic tachycardia syndrome 739549413 G90.A 977901 Health Concerns Section Related Observation LastModified by Organization Detai ls LastModified Time None Recorded Concern Status LastModified by Organization Details LastModified Time None Recorded Payers Encounter Date Sequence Insurance Name Policy Number Policy Arvizu Covered Member ID Arvizu Member ID Guarantor Name 11/29/2024 1 [facility] [id number] Rekha Day [id number] Rekha Day Notes Date Note Type Note Provider Name and Address Organization Details Recorded Time 11/29/2024 text/html ROS as noted in the HPI 29 year old female, with a longstanding history of hoarseness since childhood, presents for evaluation of recurrent sinusitis. Patient states she went to urgent care on 11/14/24 due to left-sided sinus blockage and yellow-luís green discharge from the left nostril with nose blowing. She was prescribed doxycycline for 1 week with minimal improvement. Denies nasal congestion, rhinorrhea, and postnasal drip. History of sinus infections, with the last infection being a few years ago. No known environmental allergies. Patient also reports she recently developed migraines back in April 2024, which occur once every 3 months. She is scheduled to see a neurologist for issues related to her carotid artery and will mention this once she sees them. Not taking anything for her migraines. Tried Flonase in the past with no benefit. 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 EFE MEDEL MD [address] [place] [address], [place], [address], [facility] - [facility] 12/01/2024 10:34:35 OBGyn Episode No OBEpisode recorded.
--- OUTSIDE RECORDS SUMMARY | 2025-02-18 10:28 | XMS_ITS | Clinical Summary ---
Author Organization [facility] AddThis [facility] Address [address] [place] [address] Phone Care Team Providers Care Element Burner Name Role Phone Yessenia Monique MD Primary Care Provider [phone] Social History Tobacco Use Types Packs/Day Years Used Date Smoking Tobacco: Never Assessed Comments Unknown Sex and Gender Information Value Date Recorded Sex Assigned at Not on file Legal Sex Female 10:36 AM EDT Gender Identity Not on file Sexual Orientation Not on file Plan of Treatment Health Maintenance Due Date Last Done Comments DTaP,Tdap,and Td Vaccines (1 - Tdap) 2012 Hepatitis B Vaccines (1 of 3 - 19+ 3-dose series) 2012 Cervical Cancer Screening: P ap Smear 2014 HPV Vaccines (1 - 3-dose SCD M series) 2020 Depression Screening 04/13/2024 HIV Screening 08/18/2024 Hepatitis C Screening 08/18/2024 Social Influencers of Health Screening 08/18/2024 COVID-19 Vaccine ( - 2023-2 5 season) 2024 Influenza Vaccine (#1) 2024 RSV Immunization Adult Patie nts (1 - 1-dose 75+ series) 2068 HIB Vaccines Aged Out No longer eligi ble based on patient's age to complete this topic Hepatitis A Vaccines Aged Out No long er eligible based on patient's age to complete this topic IPV Vaccines Aged Out No longer eligi ble based on patient's age to complete this topic MMR Vaccines Aged Out No longer eligi ble based on patient's age to complete this topic Meningococcal ACWY Vaccine Aged Out N o longer eligible based on patient's age to complete this topic Meningococcal B Vaccine Aged Out No l onger eligible based on patient's age to complete this topic Pneumococcal Vaccine: Pediat rics (0 to 5 Years) and At-Risk Patients (6 to 49 Years) Aged Out No longer eligible b ased on patient's age to complete this topic RSV Immunization Patients Un deonna 20 months Aged Out No longer eligible b ased on patient's age to complete this topic Varicella Vaccines Aged Out No longer eligible based on patient's age to complete this topic Care Teams Element Burner Relationship Specialty Start Date End Date Yessenia Monique MD [address] [place] [id number] PCP - General Internal Medicine 08/18/24
--- OUTSIDE RECORDS SUMMARY | 2025-02-18 10:28 | XMS_ITS | Data Portability ---
Author Organization [place] - [facility], Allergy Address [address] [place] [address] Care Team Providers Care Bridge Painter Helper Name Role Phone SEBASTIÁN VANG Primary Care Provider [phone] Assessment Encounter Date Assessment Date Assessment LastModified by Organization Details LastModified Time 10/11/2024 10/11/2024 1. Dysphonia 2. Glottic insufficiency Patient is reassured of normal laryngeal anatomy with the exception of related glottic insufficiency. Given the chronicity of her symptoms and her age, I recommend she have evaluation with a laryngeal expert to hear about options for intervention and vocal surgery. Referral to [facility] for evaluation with Dr. Alize Neff [email or web address] Not available 10/11/2024 18:09:26 11/29/2024 11/29/2024 29 year old female, with [...] with this plan. All questions were answered. Not available 11/29/2024 15:10:06 01/10/2025 01/10/2025 29 year old female, with a history of chronic hoarseness since childhood and migraines, presents for reevaluation of recurrent sinusitis. CT head without contrast performed 12[place]12[place]24 [place] [facility] showed mild ethmoid and frontal sinus mucosal thickening, otherwise paranasal sinuses were clear. Anterior rhinoscopy is stable without recurrent purulence. Recommend proceeding with allergy testing at this point. Patient has a history of POTS which is currently managed with propanolol. She is unable to discontinue the medication, therefore we will obtain RAST instead. Patient will continue following up with her neurologist for further workup of her migraines. Otherwise, I will see her back for review of results. All questions were answered. Not available 01/10/2025 14:13:31 01/30/2025 01/30/2025 29 year old female, with a history of chronic hoarseness since childhood and migraines, presents for reevaluation of recurrent sinusitis and allergy test review. RAST is negative. CT head without contrast from 12/12/24 at [facility] demonstrates mild ethmoid and frontal sinus mucosal thickening, otherwise paranasal sinuses are clear. At this point, we have done extensive workup which has not shown a clear cause for her sinus infections. Recommend saline irrigation twice daily to debride the nasal cavities with the hopes of preventing recurrence, in addition to continuing the azelastine spray. I also encouraged her to follow up regularly with her neurologist for better migraine management as this can oftentimes mask as allergy or sinus symptoms. Patient may return to the office as needed. All questions were answered. Not available 01/30/2025 17:13:53 Plan of Treatment Reminders Order Date Submit Date Provider Last Modified By Organization Details Last Modified Time Details Appointments None recorded. Lab unlisted lab - allergens , zone 1 2024 025 JIL [facility] (Centralized Electronic Ordering - All Locations), Patient Can Go To The Location Of Their Choice, [id number] 04:17:03 nettle IgE Ab, serum 2024 025 JIL [facility] (Centralized Electronic Ordering - All Locations), Patient Can Go To The Location Of Their Choice, 11:29:59 bahia grass IgE Ab, quantitat marco, serum 2024 025 JIL [facility] (Centralized Electronic Ordering - All Locations), Patient Can Go To The Location Of Their Choice, 11:30:00 bermuda grass ige, serum 2024 025 JIL [facility] (Centralized Electronic Ordering - All Locations), Patient Can Go To The Location Of Their Choice, 11:29:57 vietnamese plantain ige, serum 2024 025 JIL [facility] (Centralized Electronic Ordering - All Locations), Patient Can Go To The Location Of Their Choice, 11:29:59 ige, total, serum 2024 025 JIL [facility] (Centralized Electronic Ordering - All Locations), Patient Can Go To The Location Of Their Choice, 04:17:03 fungus, culture, unspecifi ed specimen - left nasal cavity 2024 025 JIL [facility] (Centralized Electronic Ordering - All Locations), Patient Can Go To The Location Of Their Choice, 12:17:18 culture, aerobic + anaerobic - left nasal cavity 2024 025 JIL [facility] (Centralized Electronic Ordering - All Locations), Patient Can Go To The Location Of Their Choice, 12:17:[address] referral - dyspnonia - glottic insuffici ency, voice therapy 2024 025 [email or web address] Oriana Boswell, [address] [facility], [place], [address], 5 13:25:26 otolaryng ologist [facility] [email or web address] [facility] - Otolaryngology (Ear, Nose And Throat), [address], [place], [address], 12:19:20 Procedures None recorded. Surgeries None recorded. Imaging CT, sinuses, w/o contrast 2024 025 [email or web address] Not available 11:46:08 Medication Orders Neilmed Sinus Rinse Complete with packet 2024 [id number], [address] [place], [address], 17:12:47 Marathon Saline nasal gel 2024 025 [id number], [address] [place], [address], 17:12:48 azelastin e 137 mcg (0.1 %) nasal spray 2024 025 [id number], [address] [facility], [place], [address], 11:24:05 doxycycli ne hyclate 100 mg tablet 2024 025 [id number], [address] [place], [address], 05:01:58 prednison e 20 mg tablet 2024 025 [id number], [address] [place], [address], 15:16:49 Patient TargetsNo targets recorded. Patient InstructionsNo instructions recorded. Reason for Referral Paver Installer Referral fo r Dysphonia [facility] Referring Physician: Candida Chaudhary, Otolaryngology, Encounter Date: 10/11/2024 Speech Language Pathologist Referral for Disorder of vocal cord dyspnonia - glottic insufficiency, voice therapy dyspnonia - glottic insufficiency, voice therapy Referring Physician: Candida Chaudhary, Otolaryngology, Encounter Date: 10/11/2024 Results Created Date Observation Date Name Description Value Unit Range Abnormal Flag Note LastModifiedBy Organization Detail LastModifiedTime 11/30/1911/30/2024 FUNGU S CULTU RE WITH STAIN fungus stain Final report Not Available [facility] ([facility]) [address] [facility], [place], [address], 12/28/2024 12:17:18 11/30/1911/30/2024 FUNGU S CULTU RE WITH STAIN result 1 COMMEN T BETZAIDA/C alcof luor prepa ratio n: no fungu s obser hannah. Not Available [facility] ([facility]) [address] [place], [address], 12/28/2024 12:17:18 11/30/19 25 12/28/2024 FUNGU S CULTU RE WITH STAIN fungus (mycology) culture Final report Not Available [facility] ([facility]) [address] [place], [address], 12/28/2024 12:17:18 11/30/19 25 12/28/2024 FUNGU S CULTU RE WITH STAIN result 1 COMMEN T No yeast or mold isola eleno after 4 weeks . Not Available [facility] ([facility]) [address] [facility], [place], [address], 12/28/2024 12:17:18 11/30/19 25 12/02/2024 ANAER OBIC AND AEROB IC CULTU RE aerobic culture Final report Not Available [facility] ([facility]) [address] [place], [address], 12/28/2024 12:17:18 11/30/19 25 12/02/2024 ANAER OBIC AND AEROB IC CULTU RE result 1 Mixed skin stacy Not Available [facility] ([facility]) [address] [facility], [address], 12/28/2024 12:17:18 11/30/19 25 12/03/2024 ANAER OBIC AND AEROB IC CULTU RE anaerobic culture Final report Not Available [facility] ([facility]) [address] [facility] [place], [address], 12/28/2024 12:17:18 11/30/19 25 12/03/2024 ANAER OBIC AND AEROB IC CULTU RE result 1 COMMEN T No anaer obic growt h in 72 hours . Not Available [facility] ([facility]) [address] [facility], [place], [address], 12/28/2024 12:17:18 01/11/2001/10/2025 ALLER GENS, ZONE 1 class description Commen t Level s of Speci fic IgE Class Descr iptio n of Class ----- ----- ----- ----- ----- -- ----- ----- ----- ----- ----- < 0.10 0 Negat marco 0.10 - 0.31 0/I Equiv ocal/ Low 0.32 - 0.55 I Low 0.56 - 1.40 II Moder ate 1.41 - 3.90 III High 3.91 - 19.00 IV Very High 19.01 - 100.0 0 V Very High >100. 00 Very High Not Available [facility] ([facility]) [address] [facility] [place], [address], 01/12/2025 04:17:02 01/11/2001/12/2025 ALLER GENS, ZONE 1 L099-NaJ D pteronyssinu s <0.10 kU/L class 0 Not Available [facility] ([facility]) [address] [facility], [address], 01/12/2025 04:17:02 01/11/20 25 01/12/2025 ALLER GENS, ZONE 1 E095-FmS D farinae <0.10 kU/L class 0 Not Available [facility] ([facility]) [address] [facility], [place], [address], 01/12/2025 04:17:02 01/11/20 25 01/12/2025 ALLER GENS, ZONE 1 M531-VuG CAT dander <0.10 kU/L class 0 Not Available [facility] ([facility]) [address] [facility], [place], [address], 01/12/2025 04:17:02 01/11/20 25 01/12/2025 ALLER GENS, ZONE 1 F163-MeF dog dander <0.10 kU/L class 0 Not Available [facility] ([facility]) [address] [facility], [place], [address], 01/12/2025 04:17:02 01/11/20 25 01/12/2025 ALLER GENS, ZONE 1 u743-JiU bermuda grass <0.10 kU/L class 0 Not Available [facility] ([facility]) [address] [facility], [place], [address], 01/12/2025 04:17:02 01/11/20 25 01/12/2025 ALLER GENS, ZONE 1 t000-RcZ bluegrass, [facility] <0.10 kU/L class 0 Not Available [facility] ([facility]) [address] [facility], [place], [address], 01/12/2025 04:17:02 01/11/20 25 01/12/2025 ALLER GENS, ZONE 1 u260-MrT bahia grass <0.10 kU/L class 0 Not Available [facility] ([facility]) [address] [facility], [place], [address], 01/12/2025 04:17:02 01/11/20 25 01/12/2025 ALLER GENS, ZONE 1 D081-NiE cockroach, trinidadian <0.10 kU/L class 0 Not Available [facility] ([facility]) [address] [place], [address], 01/12/2025 04:17:02 01/11/20 25 01/12/2025 ALLER GENS, ZONE 1 D526-NwH penicillium chrysogen <0.10 kU/L class 0 Not Available [facility] ([facility]) [address] [place], [address], 01/12/2025 04:17:02 01/11/20 25 01/12/2025 ALLER GENS, ZONE 1 S908-WiU cladosporium herbarum <0.10 kU/L class 0 Not Available [facility] ([facility]) [address] [place], [address], 01/12/2025 04:17:02 01/11/20 25 01/12/2025 ALLER GENS, ZONE 1 E979-HyH aspergillus fumigatus <0.10 kU/L class 0 Not Available [facility] ([facility]) [address] [place], [address], 01/12/2025 04:17:02 01/11/20 25 01/12/2025 ALLER GENS, ZONE 1 A968-YtH mucor racemosus <0.10 kU/L class 0 Not Available [facility] ([facility]) [address] [place], [address], 01/12/2025 04:17:02 01/11/20 25 01/12/2025 ALLER GENS, ZONE 1 I743-SsS alternaria alternata <0.10 kU/L class 0 Not Available [facility] ([facility]) [address] [place], [address], 01/12/2025 04:17:02 01/11/20 25 01/12/2025 ALLER GENS, ZONE 1 J907-MmI stemphylium herbarum <0.10 kU/L class 0 Not Available [facility] ([facility]) [address], [place], [address], 01/12/2025 04:17:02 01/11/20 25 01/12/2025 ALLER GENS, ZONE 1 K436-AcD common silver birch <0.10 kU/L class 0 Not Available [facility] ([facility]) [address], [place], [address], 01/12/2025 04:17:02 01/11/20 25 01/12/2025 ALLER GENS, ZONE 1 L261-MfD oak, white <0.10 kU/L class 0 Not Available [facility] ([facility]) [address], [place], [address], 01/12/2025 04:17:02 01/11/20 25 01/12/2025 ALLER GENS, ZONE 1 R187-OaD elm, trinidadian <0.10 kU/L class 0 Not Available [facility] ([facility]) [address], [place], [address], 01/12/2025 04:17:02 01/11/20 25 01/12/2025 ALLER GENS, ZONE 1 U552-LnR juli, white <0.10 kU/L class 0 Not Available [facility] ([facility]) [address], [place], [address], 01/12/2025 04:17:02 01/11/20 25 01/12/2025 ALLER GENS, ZONE 1 V278-EkR maple/box elder <0.10 kU/L class 0 Not Available [facility] ([facility]) [address], [place], [address], 01/12/2025 04:17:02 01/11/20 25 01/12/2025 ALLER GENS, ZONE 1 B874-QnT hazelnut tree <0.10 kU/L class 0 Not Available [facility] ([facility]) [address], [place], [address], 01/12/2025 04:17:02 01/11/20 25 01/12/2025 ALLER GENS, ZONE 1 A232-DcL hickory, white <0.10 kU/L class 0 Not Available [facility] ([facility]) [address], [place], [address], 01/12/2025 04:17:02 01/11/20 25 01/12/2025 ALLER GENS, ZONE 1 E818-YpD white mulberry <0.10 kU/L class 0 Not Available [facility] ([facility]) [address], [place], [address], 01/12/2025 04:17:02 01/11/20 25 01/12/2025 ALLER GENS, ZONE 1 X173-KpG cedar, mountain <0.10 kU/L class 0 Not Available [facility] ([facility]) [address], [place], [address], 01/12/2025 04:17:02 01/11/20 25 01/12/2025 ALLER GENS, ZONE 1 A874-IdL ragweed, short <0.10 kU/L class 0 Not Available [facility] ([facility] [address] [facility], [address], 01/12/2025 04:17:02 01/11/20 25 01/12/2025 ALLER GENS, ZONE 1 E384-IfV mugwort <0.10 kU/L class 0 Not Available [facility] ([facility]) [address] [place], [address], 01/12/2025 04:17:02 01/11/20 25 01/12/2025 ALLER GENS, ZONE 1 W604-XyN plantain, vietnamese <0.10 kU/L class 0 Not Available [facility] ([facility]) [address] [facility], [place], [address], 01/12/2025 04:17:02 01/11/20 25 01/12/2025 ALLER GENS, ZONE 1 B357-NqU pigweed, common <0.10 kU/L class 0 Not Available [facility] ([facility]) [address] [place], [address], 01/12/2025 04:17:02 01/11/20 25 01/12/2025 ALLER GENS, ZONE 1 B056-HtP sheep sorrel <0.10 kU/L class 0 Not Available [facility] ([facility]) [address] [place], [address], 01/12/2025 04:17:02 01/11/20 25 01/12/2025 ALLER GENS, ZONE 1 G850-UtF nettle <0.10 kU/L class 0 Not Available [facility] ([facility]) [address] [place], [address], 01/12/2025 04:17:02 01/11/2001/12/2025 IMMUN OGLOB ULIN E, TOTAL immunoglobul in E, total 14 IU/mL 6-495 Not Available [facility] ([facility]) [address] [place], [address], 01/12/2025 04:17:03 01/11/2012/27/2024 CT, head + brain , w/o contr ast No observ ation record ed. [email or web address] Not Available 12/14 09:48:18 Result Notes None recorded. 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 Active 2024 CANDIDA CHAUDHARY MD [address], [place], [address], [facility] - [facility] 10:52:02 Recurrent acute maxillary sinusitis Active 2024 MEG TRUJILLO [address], [place], [address], [facility] - [facility] 12:35:15 Migraine 73864713 Active 2024 MEG TRUJILLO [address] [facility] [address], [place], [address], [place] - [facility] 15:07:48 Postural orthostatic tachycardia syndrome 042114066 Active 2024 MEG TRUJILLO [address] [facility] [address], [place], [address], [facility] - [facility] 15:08:08 Seasonal allergic rhinitis 278953684 Active 2024 MEG TRUJILLO [address] [facility] [address], [place], [address], [facility] 11:23:50 Problem Notes None recorded. Procedures Surgical History Date Name Laterality Status Provider Name and Address Organization Details Recorded Time 11/30/19 25 NasalEndoscopy_D P completed MEG TRUJILLO [address] [facility],[address], [address], [facility] 11/29/2024 15:03:08 10/12/19 25 Fiberoptic Laryngoscopy (Comprehensive) completed CANDIDA CHAUDHARY MD [address] [facility] [address], [address], [facility] 10/11/2024 18:07:56 Imaging Results None recorded. Procedure Notes None recorded. Medical Equipment None Reported. Allergies Allergen ID Allergen Name Allergen Category Reaction Reaction Severity Criticality Documentation Date Start Date Code Code System Note Provider Name and Address Organization Details Recorded Time 748837 Lamictal medicatio n hives moderate Not available 10/11/2024 2 RxNorm Aren friend [place] - [facility] 10:01:31 Medications Name Sig Start Date [...] Not Available Not Available Not Avai lable Marathon Saline nasal gel Take 1 applicati on [...] Available Not Available No t Available Vitals Date Recorded Body height Body mass index (BMI) Body weight Provider Name and Address Organization Details Last Updated DateTime 01/10/2025 160.02 cm 30.5 kg/m2 73734.89 g Abigail Vazquez [place] - [facility] 01/10/2025 10:43:56 Date Recorded Body height Body mass index (BMI) Body weight Systolic And Diastolic Provider Name and Address Organization Details Last Updated DateTime 01/30/2025 160.02 cm 30.8 kg/m2 81771.07 g 116/78 mm[Hg] [address], [address], [facility] 01/30/2025 10:43:37 Social History Question Answer Notes LastModified by Organizat ion Details LastModified Time Tobacco Smoking Status Former Smoker Aren friend, [place] - [facility] 10/11/2024 10:02:07 What Type Of Wood Room Hand Do You Use? None Information not available [...] Emphysema N Migraines Y Thyroid Problems Y Depression Y COPD N Developmental Delay N Glaucoma N Nasal or Sinus Problems N Anemia N Immune System Disorder N Anesthesia Complications N Heart Attack ([place]) N Other Skin Condition N Diabetes N [...] ICD10 Code Diagnosis IMO Codes Diagnosis Note 14610 CANDIDA CHAUDHARY MD [facility] [address] [address] 10/11/2024 09:55:08 10/11/2024 10:56:29 Dysphonia 10269015 R49.0 61533 Disorder o f vocal cord 72068998 J38.3 340990 10543 MEG TRUJILLO [facility] [address] [address] 11/29/2024 11:14:53 11/29/2024 12:37:46 Recurrent acute maxillary sinusitis 0534629981 5001861 J01.01 4350950 Migraine 09024103 G43.80 9 4070928 Postural o rthostatic tachycardia syndrome 397425903 G90.A 998899 97134 MEG TRUJILLO [facility] [address] [address] 01/10/2025 10:26:59 01/10/2025 11:27:49 Recurrent acute maxillary sinusitis 8720831521 3330925 J01.01 0062000 Migraine 55748367 G43.80 9 2353659 Postural o rthostatic tachycardia syndrome 347600053 G90.A 225412 38526 MEG TRUJILLO [facility] [address] [address] 01/30/2025 10:12:32 01/30/2025 11:25:56 Migraine 30246190 G43.267 0270744 Postural o rthostatic tachycardia syndrome 667844284 G90.A 373618 Recurrent acute maxillary sinusitis 1395208080 2884067 J01.01 7185132 Health Concerns Section Related Observation LastModified by Organization Detai ls LastModified Time None Recorded Concern Status LastModified by Organization Details LastModified Time None Recorded Advance Directives Directive None Recorded Payers Insurance Date Sequence Insurance Name Policy Number Policy Arvizu Covered Member ID Arvizu Member ID Guarantor Name 01/30/2025 1 [facility] [id number] Rekha K Shay [id number] Rekha Day 10/11/2024 1 [facility] Rekha Shay [id number] Rekha Clark Notes Date Note Type Note Provider Name and Address Organization Details Recorded Time 10/11/2024 text/html ROS as noted in the [facility] 28yo woman who presents today for dysphonia. She reports her voice has been like this her whole life.She was born premature, has always has a hoarse breathy voice.She was intubated multiple times, which is why she was told she has a hoarse voice. She denies pain, dysphagia, reflux changes.She has never been evaluated for her voice. CANDIDA CHAUDHARY MD [address], [address], [facility] - [facility] 10/11/2024 18:09:39 11/29/2024 text/html ROS as noted in the [facility] 29 year old female, with a longstanding [...] and a hypermobile disorder. EFE MEDEL MD [address] [place] [address],[address], [address], [facility] 12/01/2024 10:34:35 01/10/2025 text/html ROS as noted in the [facility] 29 year old female, with a history of chronic hoarseness since childhood and migraines, presents for reevaluation of recurrent sinusitis. We reviewed her culture results and head scan she had done at an outside facility over the phone prior to today, which were both unremarkable. Patient met with her neurologist back on 12/19/24 and was told her migraines may be related to muscle tension in her neck. She is starting physical therapy later this afternoon. Patient had a negative MRI brain on 12/29/24 that was also ordered by her neurologist. Takes propanolol for management of POTS. EFE MEDEL MD [address] [facility],[address], [address], [place] - [facility] 01/16/2025 13:10:16 01/30/2025 text/html ROS as noted in the HPI 29 year old female, with a history of chronic hoarseness since childhood and migraines, presents for reevaluation of recurrent sinusitis and allergy test review. Patient reports good effect with azelastine, but has developed occasional nosebleeds since starting the spray. She has not tried saline irrigation before. Patient is asymptomatic at the moment. Her physical therapy session was rescheduled to later this afternoon and recommended by her neurologist as her migraines may be related to muscle tension. Esteban Keller, [address] [facility],[place] [address], [place], [address], [place] - [facility] 01/31/2025 16:00:19 OBGyn Episode No OBEpisode recorded.
--- OUTSIDE RECORDS SUMMARY | 2025-02-18 10:28 | XMS_ITS | Continuity of Care Document ---
Author Organization [place] - [facility], [facility] Address [address] [place] [address] Care Team Providers Care Language Asst Name Role Phone SEBATSIÁN VANG Primary Care Provider Assessment Encounter Date Assessment Date Assessment LastModified by Organization Details LastModified Time 01/30/2025 01/30/2025 29 year old female, with a history of chronic hoarseness since childhood and migraines, presents for reevaluation of recurrent sinusitis and allergy test review. RAST is negative. CT head without contrast [place] [facility] [place] mild ethmoid and frontal sinus mucosal [...] office as needed. All questions were answered. [email or web address] Not available 01/30/2025 17:13:53 Plan of Treatment Reminders Order Date Submit Date Provider Last Modified By Organization Details Last Modified Time Details Appointments None recorded. Lab None recorded. Referral None recorded. Procedures None recorded. Surgeries None recorded. Imaging None recorded. Medication Orders Neilmed Sinus Rinse Complete with packet 2024 025 [id number], [address] [facility], [place], [address], 17:12:47 [place] Saline nasal gel 2024 025 [id number], [address] [facility], [place], [address], 17:12:48 Patient TargetsNo targets recorded. Patient InstructionsNo instructions recorded. Reason for Referral None Reported. Results Created Date Observation Date Name Description Value Unit Range Abnormal Flag Note LastModifiedBy Organization Detail LastModifiedTime 01/11/2001/10/2025 ALLER GENS, ZONE 1 class description [...] >100. 00 Very High Not Available [facility] ([facility]) [address] [place], [address], 01/12/2025 04:17:02 01/11/20 25 01/12/2025 ALLER GENS, ZONE 1 S618-XeB D pteronyssinu s <0.10 kU/L class 0 Not Available [facility] ([facility] [facility]) [address] [place], [address], 01/12/2025 04:17:02 01/11/20 25 01/12/2025 ALLER GENS, ZONE 1 Y356-YwI D farinae <0.10 kU/L class 0 Not Available [facility] ([facility]) [address] [place], [address], 01/12/2025 04:17:02 01/11/20 25 01/12/2025 ALLER GENS, ZONE 1 C690-EdH CAT dander <0.10 kU/L class 0 Not Available [facility] ([facility]) [address] [facility], [place], [address], 01/12/2025 04:17:02 01/11/20 25 01/12/2025 ALLER GENS, ZONE 1 X780-SyO dog dander <0.10 kU/L class 0 Not Available [facility] ([facility]) [address] [facility], [place], [address], 01/12/2025 04:17:02 01/11/20 25 01/12/2025 ALLER GENS, ZONE 1 b585-EyS bermuda grass <0.10 kU/L class 0 Not Available [facility] ([facility]) [address] [facility], [place], [address], 01/12/2025 04:17:02 01/11/20 25 01/12/2025 ALLER GENS, ZONE 1 b587-XyJ bluegrass, [place] <0.10 kU/L class 0 Not Available [facility] ([facility]) [address] [place], [address], 01/12/2025 04:17:02 01/11/20 25 01/12/2025 ALLER GENS, ZONE 1 q818-HkD bahia grass <0.10 kU/L class 0 Not Available [facility] ([facility]) [address] [place], [address], 01/12/2025 04:17:02 01/11/20 25 01/12/2025 ALLER GENS, ZONE 1 Y097-EsU cockroach, [place] citizen <0.10 kU/L class 0 Not Available [facility] ([facility]) [address] [place], [address], 01/12/2025 04:17:02 01/11/20 25 01/12/2025 ALLER GENS, ZONE 1 X333-DbR penicillium chrysogen <0.10 kU/L class 0 Not Available [facility] [address] [facility] [place], [address], 01/12/2025 04:17:02 01/11/20 25 01/12/2025 ALLER GENS, ZONE 1 S790-OaR cladosporium herbarum <0.10 kU/L class 0 Not Available [facility] [address] [facility] [place], [address], 01/12/2025 04:17:02 01/11/20 25 01/12/2025 ALLER GENS, ZONE 1 X127-MiJ aspergillus fumigatus <0.10 kU/L class 0 Not Available [facility] ([facility]) [address] [facility] [place], [address], 01/12/2025 04:17:02 01/11/20 25 01/12/2025 ALLER GENS, ZONE 1 G760-MsN mucor racemosus <0.10 kU/L class 0 Not Available [facility]) [address] [facility] [place], [address], 01/12/2025 04:17:02 01/11/20 25 01/12/2025 ALLER GENS, ZONE 1 P939-AxV alternaria alternata <0.10 kU/L class 0 Not Available [facility] ([place] [facility]) [address] [facility] [place], [address], 01/12/2025 04:17:02 01/11/20 25 01/12/2025 ALLER GENS, ZONE 1 A470-XkS stemphylium herbarum <0.10 kU/L class 0 Not Available [facility] ([place] [facility]) [address] [facility] [place], [address], 01/12/2025 04:17:02 01/11/20 25 01/12/2025 ALLER GENS, ZONE 1 Y213-HaB common silver birch <0.10 kU/L class 0 Not Available [facility] ([place] [facility]) [address] [facility] [place], [address], 01/12/2025 04:17:02 01/11/2001/12/2025 ALLER GENS, ZONE 1 E916-OgN oak, white <0.10 kU/L class 0 Not Available [facility] ([place] [facility]) [address], [place], [address], 01/12/2025 04:17:02 01/11/20 25 01/12/2025 ALLER GENS, ZONE 1 H114-LeV elm, [place] citizen <0.10 kU/L class 0 Not Available [facility] ([place] [facility]) [address], [place], [address], 01/12/2025 04:17:02 01/11/20 25 01/12/2025 ALLER GENS, ZONE 1 D961-ThB juli, white <0.10 kU/L class 0 Not Available [facility] ([place] [facility]) [address], [place], [address], 01/12/2025 04:17:02 01/11/2001/12/2025 ALLER GENS, ZONE 1 V614-ZzV maple/box elder <0.10 kU/L class 0 Not Available [facility] ([place] [facility]) [address] [facility], [place], [address], 01/12/2025 04:17:02 01/11/2001/12/2025 ALLER GENS, ZONE 1 D427-DnY hazelnut tree <0.10 kU/L class 0 Not Available [facility] ([place] [facility]) [address], [place], [address], 01/12/2025 04:17:02 01/11/20 25 01/12/2025 ALLER GENS, ZONE 1 J699-PxV hickory, white <0.10 kU/L class 0 Not Available [facility] ([place] [facility]) [address] [facility], [place], [address], 01/12/2025 04:17:02 01/11/20 25 01/12/2025 ALLER GENS, ZONE 1 R514-ZbA white mulberry <0.10 kU/L class 0 Not Available [facility] ([place] [facility]) [address], [place], [address], 01/12/2025 04:17:02 01/11/20 25 01/12/2025 ALLER GENS, ZONE 1 N051-ViO cedar, mountain <0.10 kU/L class 0 Not Available [facility] ([place] [facility]) [address], [place], [address], 01/12/2025 04:17:02 01/11/20 25 01/12/2025 ALLER GENS, ZONE 1 O055-HeD ragweed, short <0.10 kU/L class 0 Not Available [facility] ([facility]) [address] [facility], [place], [address], 01/12/2025 04:17:02 01/11/20 25 01/12/2025 ALLER GENS, ZONE 1 Z238-NdK mugwort <0.10 kU/L class 0 Not Available [facility] ([facility] [facility]) [address], [place], [address], 01/12/2025 04:17:02 01/11/20 25 01/12/2025 ALLER GENS, ZONE 1 I328-XeS plantain, pu[place]ican <0.10 kU/L class 0 Not Available [facility] ([facility]) [address], [place], [address], 01/12/2025 04:17:02 01/11/20 25 01/12/2025 ALLER GENS, ZONE 1 O093-FaM pigweed, common <0.10 kU/L class 0 Not Available [facility] ([facility]) [address] [facility], [place], [address], 01/12/2025 04:17:02 01/11/20 25 01/12/2025 ALLER GENS, ZONE 1 I340-FwC sheep sorrel <0.10 kU/L class 0 Not Available [facility]) [address] [facility], [place], [address], 01/12/2025 04:17:02 01/11/20 25 01/12/2025 ALLER GENS, ZONE 1 N564-IyL nettle <0.10 kU/L class 0 Not Available [facility]) [address] [facility], [place], [address], 01/12/2025 04:17:02 01/11/2001/12/2025 IMMUN OGLOB ULIN E, TOTAL immunoglobul in E, total 14 IU/mL 6-495 Not Available [facility] [address] [place], [address], 01/12/2025 04:17:03 01/11/2012/27/2024 CT, head + brain , w/o contr ast No observ ation record ed. [email or web address] Not Available 12/14 09:48:18 Result Notes None recorded. Problems Name Problem SNOMED Code Status Onset Date Resolution Date Notes Provider Name and Address Organization Details Recorded Time Dysphonia 06816181 Active 2024 FÉLIX LANGSTON MD [address] [address], [place], [address], [facility] - [facility] 5 10:51:56 Disorder of vocal cord 11911551 Active 2024 FÉLIX LANGSTON MD [address] [address], [place], [address], [place] - [facility] 5 10:52:02 Recurrent acute maxillary sinusitis Active 2024 MEG TRUJILLO [address] [facility],[place] [address], [place], [address], [place] - [facility] 5 12:35:15 Migraine 31930636 Active 2024 MEG TRUJILLO [address] [address], [place], [address], [facility] 15:07:48 Postural orthostatic tachycardia syndrome 622209823 Active 2024 MEG TRUJILLO [address] [address], [place], [address], [facility] 15:08:08 Seasonal allergic rhinitis 873748156 Active 2024 MEG TRUJILLO [address] [address], [place], [address], [facility] 11:23:50 Problem Notes None recorded. Procedures Surgical History Date Name Laterality Status Provider Name and Address Organization Details Recorded Time 11/30/19 25 NasalEndoscopy_D P completed MEG TRUJILLO [address], [address], [facility] 11/29/2024 15:03:08 10/12/19 25 Fiberoptic Laryngoscopy (Comprehensive) completed FÉLIX LANGSTON MD [address], [address], [facility] 10/11/2024 18:07:56 Imaging Results None recorded. Procedure Notes None recorded. Medical Equipment None Reported. Allergies Allergen ID Allergen Name Allergen Category Reaction Reaction Severity Criticality Documentation Date Start Date Code Code System Note Provider Name and Address Organization Details Recorded Time 475682 Lamictal medicatio n hives moderate Not available 10/11/2024 2 RxNorm Aren friend [facility] 10:01:31 Medications Name Sig Start Date [...] Not Available Not Available Not Avai lable [place] Saline nasal gel Take 1 applicati on [...] Updated DateTime 01/30/2025 160.02 cm 30.8 kg/m2 61919.07 g 116/78 mm[Hg] Rachael Perez[address],[place] [address], [place], [address], [facility] - [facility] 01/30/2025 10:43:37 Social History Question Answer Notes LastModified by Organizat ion Details LastModified Time Tobacco Smoking Status Former Smoker Aren friend [place] - [facility] 10/11/2024 10:02:07 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 None Information not available [...] Migraines Y Thyroid Problems Y Glaucoma N Depression Y COPD N Developmental Delay N Nasal or Sinus Problems N Anemia N Immune System Disorder N Anesthesia Complications N Heart Attack (IN) N Other Skin Condition N Diabetes N Rhinitis N Bleeding Disorder N Food Allergy N Arthritis N Hearing Loss N Hyperlipidemia N Cancer N Stroke N Dementia N Nasal polyps N Asthma Y Sleep Disorder N GERD/Reflux Y High Cholesterol N Liver Disease N Headaches Y Fibromyalgia N Hypertension N Speech Delay N Kidney Disease N Gynecological HistoryNo gynecological history recorded. Obstetrics History GPAL:G 0 P 0 0 0 0 Past Encounters Encounter ID Performer Location Encounter Start Date Encounter Closed Date Diagnosis/Indication Diagnosis SNOMED-CT Code Diagnosis ICD10 Code Diagnosis IMO Codes Diagnosis Note [id number] MEG TRUJILLO [facility] [address] [place] [address] 01/10/2025 10:26:59 01/10/2025 11:27:49 Recurrent acute maxillary sinusitis 4380858298 5156689 J01.01 6983424 Migraine 80643728 G43.80 9 1806679 Postural o rthostatic tachycardia syndrome 640932473 G90.A 738152 [id number] MEG TRUJILLO [facility] [address] [place] [address] 01/30/2025 10:12:32 01/30/2025 11:25:56 Migraine 04461035 G43.739 0933474 Postural o rthostatic tachycardia syndrome 917429143 G90.A 735690 Recurrent acute maxillary sinusitis 5116366376 6145700 J01.01 4209178 Health Concerns Section Related Observation LastModified by Organization Detai ls LastModified Time None Recorded Concern Status LastModified by Organization Details LastModified Time None Recorded Payers Encounter Date Sequence Insurance Name Policy Number Policy Arvizu Covered Member ID Arvizu Member ID Guarantor Name 01/30/2025 1 [facility] [id number] Rekha Day [id number] Rekha Day Notes Date Note Type Note Provider Name and Address Organization Details Recorded Time 01/30/2025 text/html ROS as noted in the [...] be related to muscle tension. Esteban Keller, DO [address] [facility],[place] [address], [place], [address], [facility] - [facility] 01/31/2025 16:00:19 OBGyn Episode No OBEpisode recorded.
--- OUTSIDE RECORDS SUMMARY | 2025-02-18 10:28 | XMS_ITS | Continuity of Care Document ---
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 CT head without contrast performed 12/12/24 at [facility] [place] showed mild ethmoid and frontal sinus mucosal [...] review of results. All questions were answered. [email or web address] Not available 01/10/2025 14:13:31 Plan of Treatment Reminders Order Date Submit Date Provider Last Modified By Organization Details Last Modified Time Details Appointments None recorded. Lab unlisted lab - allergens, zone 1 2024 025 [facility] (Centralized Electronic Ordering - All Locations), Patient Can Go To The Location Of Their Choice, [id number] 04:17:03 nettle IgE Ab, serum 2024 025 [facility] (Centralized Electronic Ordering - All Locations), Patient Can Go To The Location Of Their Choice, 11:29:59 bahia grass IgE Ab, quantitativ e, serum 2024 [place] [facility]), Patient Can Go To The Location Of Their Choice, 11:30:00 bermuda grass ige, serum 2024 [facility] (Centralized Electronic Ordering - All Locations), Patient Can Go To The Location Of Their Choice, 11:29:57 nigerian plantain ige, serum 2024 [place] [facility] (Centralized Electronic Ordering - All Locations), Patient Can Go To The Location Of Their Choice, 11:29:59 ige, total, serum 2024 [place] [facility]), Patient Can Go To The Location Of Their Choice, 04:17:03 Referral None recorded. Procedures None recorded. Surgeries None recorded. Imaging None recorded. Medication Orders azelastine 137 mcg (0.1 %) nasal spray 2024 [facility] #[id number], [address] [place] [address], [address], 11:24:05 Patient TargetsNo targets recorded. Patient InstructionsNo instructions [...] >100. 00 Very High Not Available [facility] ([facility]) [address] [place], [address], 01/12/2025 04:17:02 01/11/20 25 01/12/2025 ALLER GENS, ZONE 1 I233-BcL D pteronyssinu s <0.10 kU/L class 0 Not Available [facility] ([facility]) [address] [place], [address], 01/12/2025 04:17:02 01/11/20 25 01/12/2025 ALLER GENS, ZONE 1 R520-CmF D farinae <0.10 kU/L class 0 Not Available [facility] ([facility]) [address] [place], [address], 01/12/2025 04:17:02 01/11/20 25 01/12/2025 ALLER GENS, ZONE 1 X815-HxN CAT dander <0.10 kU/L class 0 Not Available [facility] ([facility]) [address] [place], [address], 01/12/2025 04:17:02 01/11/20 25 01/12/2025 ALLER GENS, ZONE 1 Z631-GiX dog dander <0.10 kU/L class 0 Not Available [facility] ([facility]) [address] [place], [address], 01/12/2025 04:17:02 01/11/20 25 01/12/2025 ALLER GENS, ZONE 1 q584-KoH bermuda grass <0.10 kU/L class 0 Not Available [facility] ([facility]) [address] [place], [address], 01/12/2025 04:17:02 01/11/20 25 01/12/2025 ALLER GENS, ZONE 1 c126-DuY bluegrass, [place] <0.10 kU/L class 0 Not Available [facility] ([facility]) [address] [place], [address], 01/12/2025 04:17:02 01/11/20 25 01/12/2025 ALLER GENS, ZONE 1 y935-MlQ bahia grass <0.10 kU/L class 0 Not Available [facility] ([facility]) [address] [place], [address], 01/12/2025 04:17:02 01/11/20 25 01/12/2025 ALLER GENS, ZONE 1 Y116-ErR cockroach, somali <0.10 kU/L class 0 Not Available [facility] ([facility]) [address] [place], [address], 01/12/2025 04:17:02 01/11/20 25 01/12/2025 ALLER GENS, ZONE 1 E686-HaV penicillium chrysogen <0.10 kU/L class 0 Not Available [facility] ([facility]) [address] [place], [address], 01/12/2025 04:17:02 01/11/20 25 01/12/2025 ALLER GENS, ZONE 1 K487-OuV cladosporium herbarum <0.10 kU/L class 0 Not Available [facility] ([facility]) [address] [place], [address], 01/12/2025 04:17:02 01/11/20 25 01/12/2025 ALLER GENS, ZONE 1 L113-WmZ aspergillus fumigatus <0.10 kU/L class 0 Not Available [facility] ([facility]) [address] [place], [address], 01/12/2025 04:17:02 01/11/20 25 01/12/2025 ALLER GENS, ZONE 1 K526-HwO mucor racemosus <0.10 kU/L class 0 Not Available [facility] ([facility]) [address] [place], [address], 01/12/2025 04:17:02 01/11/20 25 01/12/2025 ALLER GENS, ZONE 1 Q583-HyI alternaria alternata <0.10 kU/L class 0 Not Available [facility] ([facility]) [address] [place], [place], [address], 01/12/2025 04:17:02 01/11/20 25 01/12/2025 ALLER GENS, ZONE 1 A396-EyF stemphylium herbarum <0.10 kU/L class 0 Not Available [facility] ([facility]) [address] [place], [place], [address], 01/12/2025 04:17:02 01/11/20 25 01/12/2025 ALLER GENS, ZONE 1 V792-SdC common silver birch <0.10 kU/L class 0 Not Available [facility] ([facility]) [address] [place], [address], 01/12/2025 04:17:02 01/11/20 25 01/12/2025 ALLER GENS, ZONE 1 Y290-NyW oak, white <0.10 kU/L class 0 Not Available [facility] ([facility]) [address] [facility] [place], [address], 01/12/2025 04:17:02 01/11/20 25 01/12/2025 ALLER GENS, ZONE 1 A361-WkE elm, somali <0.10 kU/L class 0 Not Available [facility] ([facility]) [address] [place], [address], 01/12/2025 04:17:02 01/11/20 25 01/12/2025 ALLER GENS, ZONE 1 G682-OjJ juli, white <0.10 kU/L class 0 Not Available [facility] ([facility] [facility]) [address], [place], [address], 01/12/2025 04:17:02 01/11/2001/12/2025 ALLER GENS, ZONE 1 V273-QrU maple/box elder <0.10 kU/L class 0 Not Available [facility] ([place] [facility]) [address], [place], [address], 01/12/2025 04:17:02 01/11/2001/12/2025 ALLER GENS, ZONE 1 D011-EvD hazelnut tree <0.10 kU/L class 0 Not Available [facility] ([facility]) [address], [place], [address], 01/12/2025 04:17:02 01/11/20 25 01/12/2025 ALLER GENS, ZONE 1 U602-LxR hickory, white <0.10 kU/L class 0 Not Available [facility] ([place] [facility]) [address], [place], [address], 01/12/2025 04:17:02 01/11/2001/12/2025 ALLER GENS, ZONE 1 G297-FzX white mulberry <0.10 kU/L class 0 Not Available [facility] ([place] [facility]) [address], [place], [address], 01/12/2025 04:17:02 01/11/2001/12/2025 ALLER GENS, ZONE 1 S299-KhS cedar, mountain <0.10 kU/L class 0 Not Available [facility] ([place] [facility]) [address], [place], [address], 01/12/2025 04:17:02 01/11/20 25 01/12/2025 ALLER GENS, ZONE 1 W621-LxA ragweed, short <0.10 kU/L class 0 Not Available [facility] ([place] [facility]) [address], [place], [address], 01/12/2025 04:17:02 01/11/20 25 01/12/2025 ALLER GENS, ZONE 1 H960-TqD mugwort <0.10 kU/L class 0 Not Available [facility] ([facility]) [address], [place], [address], 01/12/2025 04:17:02 01/11/20 25 01/12/2025 ALLER GENS, ZONE 1 K953-MmQ plantain, nigerian <0.10 kU/L class 0 Not Available [facility] ([facility]) [address], [place], [address], 01/12/2025 04:17:02 01/11/20 25 01/12/2025 ALLER GENS, ZONE 1 N825-TvP pigweed, common <0.10 kU/L class 0 Not Available [facility] ([facility]) [address], [place], [address], 01/12/2025 04:17:02 01/11/20 25 01/12/2025 ALLER GENS, ZONE 1 T973-TiS sheep sorrel <0.10 kU/L class 0 Not Available [facility] ([facility]) [address], [place], [address], 01/12/2025 04:17:02 01/11/20 25 01/12/2025 ALLER GENS, ZONE 1 D044-FiX nettle <0.10 kU/L class 0 Not Available [facility] ([facility]) [address] [facility], [place], [address], 01/12/2025 04:17:02 01/11/20 25 01/12/2025 IMMUN OGLOB ULIN E, TOTAL immunoglobul in E, total 14 IU/mL 6-495 Not Available [facility] ([facility]) [address] [facility], [place], [address], 01/12/2025 04:17:03 01/11/20 25 12/27/2024 CT, head + brain , w/o contr ast No observ ation record ed. [email or web address] Not Available 12/14 09:48:18 Result Notes None recorded. Problems Name Problem SNOMED Code Status Onset Date Resolution Date Notes Provider Name and Address Organization Details Recorded Time Dysphonia 00405530 Active 2024 FÉLIX LANGSTON MD [address] [facility],[place] [address], [place], [address], [facility] - [facility] [place] 5 10:51:56 Disorder of vocal cord 17188622 Active 2024 FÉLIX LANGSTON MD [address] [place] [address], [facility] [place], [address], [facility] - [facility] [place] 5 10:52:02 Recurrent acute maxillary sinusitis Active 20[address]O [address] [place] [address], [place], [address], [facility] - [facility] [place] 5 12:35:15 Migraine 15674974 Active 20[address]O [address] [place] [address], [place], [address], [facility] - [facility] [place] 5 15:07:48 Postural orthostatic tachycardia syndrome 875653321 Active 2024 [address]G TRUJ[address]O [address] [place] [address], [place], [address], [facility] - [facility] [place] 5 15:08:08 Seasonal allergic rhinitis 002193919 Active 2024 [address]O [address] [place] [address], [place], [address], [facility] - [facility] [place] 5 11:23:50 Problem Notes None recorded. Procedures Surgical History Date Name Laterality Status Provider Name and Address Organization Details Recorded Time 11/30/19 25 NasalEndoscopy_D P completed MEG TRUJILLO [address] [facility],[place] [address], [place], [address], [facility] 11/29/2024 15:03:08 10/12/19 25 Fiberoptic Laryngoscopy (Comprehensive) completed FÉLIX LANGSTON MD [address] [facility],[place] [address], [place], [address], [facility] 10/11/2024 18:07:56 Imaging Results None recorded. Procedure Notes None recorded. Medical Equipment None Reported. Allergies Allergen ID Allergen Name Allergen Category Reaction Reaction Severity Criticality Documentation Date Start Date Code Code System Note Provider Name and Address Organization Details Recorded Time 258790 Lamictal medicatio n hives moderate Not available 10/11/2024 2 RxNorm Aren friend [facility] 10:01:31 Medications Name Sig Start Date Stop [...] Not Available Not Available Not Avai lable [place] Saline nasal gel Take 1 applicati on [...] Updated DateTime 01/10/2025 160.02 cm 30.5 kg/m2 94726.89 g Abigail Vazquez [place] - [facility] 01/10/2025 10:43:56 Social History Question Answer Notes LastModified by Organizat ion Details LastModified Time Tobacco Smoking Status Former Smoker Aren friend [place] - [facility] 10/11/2024 10:02:07 What Type Of Fiber Optic Technician Do You Use? None Information not available [...] Disorder N Anesthesia Complications N Heart Attack ([place]) N Other Skin Condition N Diabetes N [...] ICD10 Code Diagnosis IMO Codes Diagnosis Note [id number] MEG TRUJILLO [facility] [address] [address] 01/10/2025 10:26:59 01/10/2025 11:27:49 Recurrent acute maxillary sinusitis 2327127158 7042228 J01.01 3828632 Migraine 06488084 G43.80 9 9156404 Postural o rthostatic tachycardia syndrome 196903882 G90.A 714726 Health Concerns Section Related Observation LastModified by Organization Detai ls LastModified Time None Recorded Concern Status LastModified by Organization Details LastModified Time None Recorded Payers Encounter Date Sequence Insurance Name Policy Number Policy Arvizu Covered Member ID Arvizu Member ID Guarantor Name 01/10/[address] [place] [address] [id number] Rekha Day [id number] Rekha Day Notes Date Note Type Note Provider Name and Address Organization Details Recorded Time 01/10/2025 text/html ROS as noted in the HPI [...] management of POTS. EFE MEDEL MD [address], [address], [facility] - [facility] 01/16/2025 13:10:16 OBGyn Episode No OBEpisode recorded.
--- OUTSIDE RECORDS SUMMARY | 2025-02-18 10:28 | XMS_ITS | Encounter Summary ---
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 Not on yusra e 06/28/2024 Are you concerned about learning? Not on file 06/28/2024 No 06/28/2024 No 06/28/2024 Digital Access Answer Date Recorded No 06/28/2024 No 06/28/2024 Reliable internet access at home? Not on file 06/28/2024 Device with a working camera? Not on file Intimate Partner Violence Answer Date R ecorded Are you denied basic needs s uch as food, clothing, or medical care? No 11/07/2024 In the past 12 months have y ou been in a relationship with a person who hurts, threatens, or tries to control you? No 11/07/2024 Are you denied basic needs s uch as food, clothing, or medical care? No 11/07/2024 In the past 12 months have y ou been in a relationship with a person who hurts, threatens, or tries to control you? No 11/07/2024 Comments Unknown Sex and Gender Information Value Date Recorded Sex Assigned at Female 10/24/2024 2:01 AM EDT Legal Sex Female 7:19 AM EDT Gender Identity Female 10/24/2024 2:01 AM EDT Sexual Orientation Straight 11/30/2024 11 :02 PM EDT documented as of this encounter Plan of Treatment Upcoming Encounters Date Type Department Care Team (Late st Contact Info) Description 03/13/2025 9:30 AM EST Office Visit [facility] [address] [place] [address] [place] [address], [address] [place] [id number] Mary Ann Humphreys DNP [address] [place] [address], [address] [address] 03/28/2025 11:00 AM EST Office Visit [facility] [address] [facility], [address] [place] [address] Gelacio Poon MD [address] [place] [address], [address] [place] [id number] 06/13/2025 8:40 AM EST Office Visit [facility] [address], [address] [place] [address] Jay Toro MD [address] [place] [address] 10/09/2025 1:00 PM EDT Office Visit [facility] [place] [address] [place] [address] Salud Gonzalez MD [address] [place] [address] documented as of this encounter Visit Diagnoses Not on filedocumented in this encounter Care Teams Machine Repairer Maintenance Relationship Specialty Start Date End Date Yessenia Monique MD [address] [place] [address] PCP - General Internal Medicine 06/28/24 01/27/25 Grace Saldaña [facility] [address] [place] [address] Primary Care Physician 02/08/25 documented as of this encounter Additional Source Comments The information contained in this document represents components of the legal health record. It is not the complete legal health record.[facility]
--- OUTSIDE RECORDS SUMMARY | 2025-02-18 10:28 | XMS_ITS | Clinical Summary ---
Author Organization [facility] Address [address] [place] [address] Phone Care Team Providers Care Air Brush Decorator Name Role Phone Unavailable Primary Care Provider Unavailabl e Allergies Active Allergy Reactions Criticality Noted Date Comments Lamotrigine Hives 06/28/2024 Medications ALPRAZolam (XANAX) 0.25 MG tablet Take 0.25 mg by mouth as needed. Active ADDERALL XR 25 mg 24 hr capsule TAKE 2 CAPSULES BY MOUTH EVERY DAY IN THE MORNING 5 Active levothyroxine (SYNTHROID, LEVOTHROID) 88 MCG tablet Take 88 mcg by mouth every morning. Active divalproex (DEPAKOTE ER) 250 MG ER 24 hr tablet take 1 tablet by mouth everyday at bedtime 5 Active divalproex (DEPAKOTE ER) 500 MG ER 24 hr tablet take 1 tablet by mouth everyday at bedtime 5 Active drospirenone (SLYND) 4 mg tablet Active lithium carbonate 300 MG capsule Take 300 mg by mouth 2 (two) times a day with meals. Active albuterol (VENTOLIN HFA) 90 mcg/actuation inhaler Inhale 1 puff into the lungs as needed (seasonal). Active aspirin 81 mg Tab Take 81 mg by mouth daily. 5 Active VRAYLAR 4.5 mg capsule Take 3 mg by mouth every morning. Active fluticasone propionate (FLONASE) 50 mcg/actuation nasal spray 1 spray by Nasal route as needed for allergies (seasonal). 5 Active omeprazole (PRILOSEC) 40 MG capsule Take 40 mg by mouth daily. Active ondansetron (ZOFRAN-ODT) 4 MG disintegrating tablet Take 4 mg by mouth as needed. Active propranoloL (INDERAL) 20 MG immediate release tabletIndications: POTS (postural orthostatic tachycardia syndrome) Take 1 tablet (20 mg total) by mouth 2 (two) times a day. 90 tablet 3 Active Active Problems Problem Noted Date Diagnosed Date POTS (postural orthostatic tachycardia syndrome) 12/06/2024 Assessment & Plan (12/06/2024 9:04 AM EDT): Pt is currently managed on propranolol but does note that her HR can still occasionally increase even at rest. She continues to have SOB and fatigue. Echo showed a structurally normal heart. Her tilt table test was positive for POTS. We discussed propranolol for high HR, hydration, electrolyte replacement, and compression stockings. Will refer her to Dr. Gonzalez for further evaluation in conjunction with her hypermobility diagnosis. Pt to return in 3 months. Plan: Continue propranolol Referral to Dr. Gonzalez Follow-up in 3 months Hypermobility syndrome 12/06/2024 Assessment & Plan (12/06/2024 9:06 AM EDT): Patient saw a au pair who diagnosed her with hypermobility syndrome. She is going to get a carotid CT by a neurologist. She has an appointment with them on 12/19/2024. Given this diagnosis, I would like to evaluate her abdominal aorta for possible aneurysm. Her echo did not show any thoracic aortic aneurysm. I have also referred her to Dr. Gonzalez for further evaluation of dysautonomia syndromes. Plan: Abdominal aortic ultrasound Follow-up in 3 months Migraine with aura and witho ut status migrainosus, not intractable 12/06/2024 Palpitations 08/23/2024 Assessment & Plan (10/17/2024 7:29 AM EDT): At this point we are just going to order her a tilt table test she was not able to keep the monitor stickers on due to perspiration Assessment & Plan (08/23/2024 9:42 AM EDT): This patient has wide fluctuations in heart rate I just want to see on the propranolol 20 mg twice a day what her heart rate variability is with the maximum and minimum and if she has any significant arrhythmias. I will follow-up with her after the monitor is performed Shortness of breath 08/23/2024 Assessment & Plan (12/06/2024 9:05 AM EDT): Continues to report shortness of breath especially with activity. Patient is a vape user and has reduced her use from 5 cartridges a day to 1 cartridge today. I will get pulmonary function testing and refer her to pulmonology for further evaluation. Plan: PFTs Referral to pulmonology Assessment & Plan (10/17/2024 7:29 AM EDT): She does not have any structural abnormality in the heart and she does not have coronary disease I am not sure where her episodes of shortness of breath are coming from Assessment & Plan (08/23/2024 9:42 AM EDT): It is difficult to read this patient's symptoms of dyspnea on exertion they seem to be just related to her heart rate Cardiac murmur, unspecified 08/23/2024 Assessment & Plan (10/17/2024 7:29 AM EDT): She does not have any significant valvular heart disease Assessment & Plan (08/23/2024 9:42 AM EDT): She has no significant structural heart disease by echo Encounters Date Type Department Care Team Description 02/06/2025 11:50 AM EDT - 02/06/2025 11:59 PM EDT Hospital Encounter [facility] [address] [place] [address] Mary Ann Humphreys DNP Discharge Disposition: Home or Self Care 02/06/2025 11:50 AM EDT - 02/06/2025 11:59 PM EDT Hospital Encounter [facility] [address] [place] [address] Mary Ann Humphreys DNP Discharge Disposition: Home or Self Care 01/28/2025 1:09 PM EDT - 01/28/2025 2:05 PM EDT Emergency [facility] Emergency [address] [place] [address] Maggi Adamson MD Discharge Disposition: Home or Self Care 01/27/2025 Transcribe Orders [facility] PFT [facility] [address] [place] [address] Mary Ann Humphreys DNP 01/04/2025 Telephone [facility] [address] Floor, [address] [place] [id number] Mary Ann Humphreys DNP 01/03/2025 11:04 AM EDT - 01/03/2025 11:59 PM EDT Hospital Encounter [facility] [address] [place] [address] Mary Ann Humphreys DNP Discharge Disposition: Home or Self Care 12/26/2024 10:16 AM EDT - 12/26/2024 11:59 PM EDT Hospital Encounter Non-Invasive Cardiology [address] [place] [address] Mary Ann Humphreys DNP Discharge Disposition: Home or Self Care 12/26/2024 Orders Only [facility] [address], [address] [place] [phone] Mary Ann Humphreys DNP POTS (postural orthostatic tachycardia syndrome) (Primary Dx) 12/21/2024 11:25 PM EDT - 12/22/2024 1:46 AM EDT Emergency [facility] Emergency [address] [place] [address] Discharge Disposition: Home or Self Care 12/21/2024 Orders Only [facility] [address] Floor, [address] [place] [phone] Mary Ann Humphreys DNP Shortness of breath (Primary Dx); Other chest pain 12/16/2024 Orders Only [facility] [address], [address] [place] [address] Mary Ann Humphreys DNP POTS (postural orthostatic tachycardia syndrome) (Primary Dx) 12/15/2024 Telephone [facility] [address], [address] [place] [address] Mary Ann Humphreys DNP 12/14/2024 Telephone [facility] [address], [address] [place] [address] Mary Ann Humphreys DNP 12/08/2024 Orders Only [facility] [address], [address] [place] [address] Mary Ann Humphreys DNP POTS (postural orthostatic tachycardia syndrome) (Primary Dx) 12/06/2024 8:30 AM EDT Office Visit [facility] [address], [address] [place] [address] Mary Ann Humphreys DNP POTS (postural orthostatic tachycardia syndrome) (Primary Dx); Shortness of breath; Hypermobility syndrome 11/30/2024 11:19 PM EDT - 12/01/2024 2:35 AM EDT Emergency [facility] [address] [place] [address] Onofre Hanson, DO Discharge Disposition: Home or Self Care from Last 3 Months Social History Tobacco Use Types Packs/Day Years Used Date Smoking Tobacco: Never Smokeless Tobacco: Never Alcohol Use Standard Drinks/Week Comments Not Currently 0 (1 standard drink = 0.6 oz pur e alcohol) Education Answer Date Recorded Are you interested in more education? Not on yusra e 06/28/2024 Are you concerned about learning? Not on file 06/28/2024 No 06/28/2024 No 06/28/2024 Food Answer Date Recorded Within the past 6 months we worried whether our food would run out before we got money to buy more. Never True 01/28/2025 Within the past 6 months the food we bought just didn't last and we didn't have enough money to get more. Never True Residential Stability Answer Date Recor ded What is your housing situation today? I have ani sing 01/28/2025 How many times have you move d in the past 12 months? Zero (I did not move) 01/28/2025 Paying for Meds Answer Date Recorded Do you have trouble paying for medicines? No 01/28/2025 Paying Utility Bills Answer Date Record ed Do you have trouble paying your heating or elect ricity bill? No 01/28/2025 Transportation Answer Date Recorded Has the lack of transportati on kept you from medical appointments or from getting medications? No 01/28/2025 Digital Access Answer Date Recorded No 01/28/2025 Yes 01/28/2025 Do you have reliable internet access at home? Ye s 01/28/2025 Do you have a device (e.g., phone, tablet, computer) with a working camera? Yes 01/28/2025 Intimate Partner Violence Answer Date R ecorded Are you denied basic needs s uch as food, clothing, or medical care? No 01/28/2025 In the past 12 months have y ou been in a relationship with a person who hurts, threatens, or tries to control you? No 01/28/2025 Are you denied basic needs s uch as food, clothing, or medical care? No 01/28/2025 In the past 12 months have y ou been in a relationship with a person who hurts, threatens, or tries to control you? No 01/28/2025 Comments Unknown Sex and Gender Information Value Date Recorded Sex Assigned at Female 10/24/2024 2:01 AM EDT Legal Sex Female 7:19 AM EDT Gender Identity Female 10/24/2024 2:01 AM EDT Sexual Orientation Straight 11/30/2024 11 :02 PM EDT Last Filed Vital Signs Vital Sign Reading Time Taken Comments Blood Pressure 111/72 01/28/2025 1:16 PM EDT Pulse 73 01/28/2025 1:16 PM EDT Temperature 36.3 C (97.4 F) 01/28/2025 1:16 PM EDT Respiratory Rate 18 01/28/2025 1:16 PM EDT Oxygen Saturation 97% 01/28/2025 1:16 PM EDT Inhaled Oxygen Concentration - - Weight 78.9 kg (174 lb) 01/28/2025 10:40 AM EDT Height 160 cm (5' 3 ) 01/28/2025 10:40 AM EDT Body Mass Index 30.82 01/28/2025 10:40 AM EDT Plan of Treatment Upcoming Encounters Date Type Department Care Team (Late st Contact Info) Description 03/13/2025 9:30 AM EST Office Visit [facility] [address] [place] [address] 3rd Floor, [address] [place] [address] Mary Ann Humphreys DNP [address] [facility], [address] [place] [address] 03/28/2025 11:00 AM EST Office Visit [facility] [address], [address] [place] [address] Gelacio Poon MD [address] [facility], [address] [place] [address] 06/13/2025 8:40 AM EST Office [facility] [address] 3[address] [facility], [address] [place] [address] Jay Toro MD [address] [place] [address] 10/09/2025 1:00 PM EDT Office Visit [facility] [address] [facility] [place] [address] Salud Gonzalez MD [address] [place] [id number] [email or web address] Health Maintenance Due Date Last Done Comments Adult Td,Tdap Booster 1993 VALPROIC ACID (DEPAKENE) LEVEL 1993 DEPRESSION SCREENING 2005 HEPATITIS C SCREENING 11/16/2011 HIV ONE-TIME SCREENING (18-65 YEARS) 11/16/2011 PAP SMEAR 2014 INFLUENZA VACCINE (#1) 2024 COVID-19 VACCINE ( season) 2024 TSH LEVEL 06/28/2025 06/28/2024 LITHIUM LEVEL 12/01/2025 12/01/2024 CREATININE LEVEL 12/22/2025 12/22/2024, , 10/24/2024, Additional history exists SMOKING STATUS SCREENING (Once After 26 Yrs) Completed 12/06/2024 HEPATITIS A VACCINES Aged Out No long er eligible based on patient's age to complete this topic HIB VACCINES Aged Out No longer eligi ble based on patient's age to complete this topic MENINGOCOCCAL VACCINES (ACWY) Aged Out No longer eligible based on patient's age to complete this topic MENINGOCOCCAL VACCINES (B) Aged Out N o longer eligible based on patient's age to complete this topic PNEUMOCOCCAL VACCINES (0-49 years) Aged Out No longer eligible based on patient's age to complete this topic Medical Devices Not on file Procedures Procedure Name Priority Date/Time Associated Diagnosis Comments PULMONARY FUNCTION TEST Routine 02/06/2025 2:06 PM EDT Shortness of breath ARTERIAL BLOOD GAS Routine 02/06/2025 12 :19 PM EDT US AORTA DUPLEX COMPLETE Routine 01/03/2025 11:31 AM EDT Hypermobility syndrome STRESS TEST EXERCISE Routine 12/26/2024 11:08 AM EDT Shortness of breath Other chest pain C-REACTIVE PROTEIN (CRP) STAT 12/22/2024 12:07 AM EDT BASIC METABOLIC PANEL (BMP) STAT 12/22/2024 12:07 AM EDT CBC AND DIFFERENTIAL STAT 12/22/2024 12:07 AM EDT XR CHEST PA AND LATERAL 2 VIEWS STAT 12/21/2024 11:52 PM EDT ECG 12-LEAD STAT 12/21/2024 11:08 PM EDT LITHIUM LEVEL STAT 12/01/2024 12:20 AM EDT MAGNESIUM STAT 12/01/2024 12:20 AM EDT HCG, SERUM QUALITATIVE STAT 11/30/2024 11:24 PM EDT CBC AND DIFFERENTIAL STAT 11/30/2024 11:24 PM EDT BASIC METABOLIC PANEL (BMP) STAT 11/30/2024 11:24 PM EDT ECG 12-LEAD STAT 11/30/2024 11:03 PM EDT TSH WITH REFLEX STAT 06/28/2024 8:08 AM EDT from Last 3 Months or Most Recently Relevant to Health Maintenance Results * Pulmonary Function Test Reason for Exam: Dyspnea/Shortness of Breath; Type of PFT Test: Spirometry with bronchodilator; Performing Location: [facility] (02/06/2025 2:06 PM EDT) FEV1 2.37 liters FVC 3.54 liters FEV1/FVC 67 % TLC DLCO Anatomical Region Laterality Modality Other Impressions 02/06/2025 2:06 PM EDT PULMONARY FUNCTION STUDIES Full pulmonary function studies were performed on this 29 y.o. year-old female for evaluation of dyspnea. Review of the medical record reveals that the patient is a current smoker. Prior pulmonary function studies are not available for comparison. SPIROMETRY: The FEV1 is normal at 2.37 L or 82% predicted. The FVC is normal at 3.54 L or 104% predicted. The FEV1/FVC ratio is impaired (<5th percentile) at 67%. After the administration of a bronchodilator agent, there is no technically significant change. FLOW-VOLUME LOOPS: Evaluation of the flow-volume loops reveals normal morphology of the inspiratory limb with scooping of the expiratory limb and blunting of the peak expiratory flows in keeping with the patient's obstructive lung disease. Resting oxygen saturation is 100% on room air. IMPRESSION: Mild fixed airflow limitation. 6-MINUTE DISTANCE WALK A standard 6-minute distance walk was performed according to ATS criteria with the patient breathing room air. At rest, the oxygen saturation was 100% with a heart rate of 79 bpm and a respiratory dyspnea index of 1 on a scale from 0 to 10. During ambulation, the oxygen saturation reached a zeynep of 99%, the heart rate increased physiologically to a maximum of 110 bpm and the respiratory dyspnea index reached a maximum of 4. After one minute of recovery, the oxygen saturation was 99%, the hear rate was 84 bpm and the respiratory dyspnea index was 1. The patient ambulated 1060 feet or 323 meters, which is moderately impaired. The patient endorsed hip and leg pain during the study. IMPRESSION: Abnormal 6-minute distance walk study as evidenced by a moderately impaired walk distance, the absence of ambulatory desaturations, a physiologic increase in heart rate with exercise and an increase in the respiratory dyspnea index with exercise. Of note, the patient stopped walking for 1 minute and 15 seconds after 4 minutes of ambulation because of dyspnea. Technical Note: As of 02/23/2024, the [facility] Pulmonary Function Testing (PFT) Laboratory transitioned from using race-specific to using race-neutral equations for determining lung function predicted values for all persons. Due to this change some individuals previously classified as either normal or abnormal may now change from one to the other category without a true change in lung function. Such changes, as well as changes in severity classification, should be considered broadly and in their clinical context. Absolute values of lung function are unaffected. For further questions please contact the interpreting physician or PFT laboratory asst. For further discussion of this issue please see Monique et al [facility] 2022;2078):[id number]. Please Note: Not all PFT labs within, or outside of, our system will be transitioning to new reference equations at the same time. For this reason, please pay close attention to absolute values when comparing results done at different testing locations within or outside of our system. Mary Ann Humphreys [facility] PFT ORDERABLES Final Result * (ABNORMAL) Arterial blood gas (02/06/2025 12:19 PM EDT) pH, Arterial 7.42 7.35 - 7.45 [facility] PCO2, Arterial 32.50(L) 35.00 - 45.00 mmHg [facility] PO2, Arterial 93.60 80.00 - 105.00 mmHg [facility] HCO3, unspecified 21(L) 22 - 26 mmol/L [facility] BASE DEFICIT 2.9(H) 0.0 - 2.0 mmol/L [facility] SO2, unspecified 97.70 95.00 - 98.00 % [facility] FO2HB BLOOD GAS 96.40 94.00 - 100.00 % [facility] Carboxy Hgb 1.20 0 - 1.50 % [facility] MetHgb % 0.10 0 - 1.50 % [facility] Jac's Test Positive [facility] ABG site LEFT BRACHIAL [facility] FIO2 ROOM AIR FIO2/L min [facility] OXYGEN LITERS/MIN NOT GIVEN [facility] Blood 02/06/2025 12:1 9 PM EDT 02/06/2025 12:59 PM EDT us Mary Ann Lima DNP LAB BLOOD BKR ORDERABLES Final R esult Performing Organization Address City/State/[facility] Co de Phone Number [address] [address] * US Aorta Duplex Complete (01/03/2025 11:31 AM EDT) Anatomical Region Laterality Modality Aorta Ultrasound 01/03/2025 11:3 2 AM EDT Narrative 01/03/2025 12:05 PM EDT US AORTA DUPLEX COMPLETE Referring clinician's provided indication for this examination in Epic: Other Indication (Please use free text); Hypermobility syndrome, connective tissue disorder TECHNIQUE: A duplex ultrasound evaluation of the abdominal aorta and iliac arteries as well as the inferior vena cava was performed using a combination of qureshi scale imaging, color duplex and spectral Doppler analysis. COMPARISON: None FINDINGS: Exam Quality: Technically adequate exam demonstrates: GENERAL: Color Doppler flow fills the lumen of the imaged aorta with no mural clot or plaques demonstrated. Spectral Doppler analysis demonstrates normal high resistive flow pattern. Aorta: Proximal: Normal Mid: Normal Distal: Normal IVC: Patent with normal spectral Doppler waveforms. Right Common Iliac Artery: Normal Left Common Iliac Artery: Normal Duplex: Proximal aorta: Peak systolic velocity (cm/s): 138 Aorta Diameter Proximal (cm): 1.8 x 1.5 Mid aorta: Peak systolic velocity (cm/s): 147 Aorta Diameter Mid (cm): 1.3 x 1.1 Distal aorta: Peak systolic velocity (cm/s): 129 Aorta Diameter Distal (cm): 1.4 x 1.4 Iliac arteries: Right common Iliac artery: Peak systolic velocity (cm/s): 140 Diameter(cm): 0.8 x 0.7 Left common Iliac artery: Peak systolic velocity (cm/s): 118 Diameter (cm): 0.9 x 0.8 IMPRESSIONS: * No evidence of abdominal aortic aneurysm. Procedure Note Dora Douglas MD - 01/03/2025 US AORTA DUPLEX COMPLETE Referring clinician's provided indication for this examination in Epic:Other Indication (Please use free text); Hypermobility syndrome,connective tissue disorder TECHNIQUE: A duplex ultrasound evaluation of the abdominal aorta and iliacarteries as well as the inferior vena cava was performed using acombination of qureshi scale imaging, color duplex and spectral Doppleranalysis. COMPARISON: None FINDINGS: Exam Quality: Technically adequate exam demonstrates: GENERAL: Color Doppler flow fills the lumen of the imaged aorta with nomural clot or plaques demonstrated. Spectral Doppler analysis demonstratesnormal high resistive flow pattern. Aorta: Proximal: Normal Mid: Normal Distal: Normal IVC: Patent with normal spectral Doppler waveforms. Right Common Iliac Artery: Normal Left Common Iliac Artery: Normal Duplex: Proximal aorta: Peak systolic velocity (cm/s): 138 Aorta Diameter Proximal (cm): 1.8 x 1.5 Mid aorta: Peak systolic velocity (cm/s): 147 Aorta Diameter Mid (cm): 1.3 x 1.1 Distal aorta: Peak systolic velocity (cm/s): 129 Aorta Diameter Distal (cm): 1.4 x 1.4 Iliac arteries: Right common Iliac artery: Peak systolic velocity (cm/s): 140 Diameter(cm): 0.8 x 0.7 Left common Iliac artery: Peak systolic velocity (cm/s): 118 Diameter (cm): 0.9 x 0.8 IMPRESSIONS: * No evidence of abdominal aortic aneurysm. [facility] IMG US ABDOMEN Final Result * STRESS TEST EXERCISE (12/26/2024 11:08 AM EDT) Max Predicted Heart Rate 189 bpm Anatomical Region Laterality Modality Heart Ultrasound Narrative 12/26/2024 4:54 PM EDT ECG Pt exercised for 9:08 min on a LAURA protocol achieving 10.4 METS. Test terminated due to fatigue/shortness of breath. Baseline resting HR was 116 bpm. Max heart rate achieved was 190 bpm (100% MPHR). 1. EKG - Baseline EKG showed sinus tachycardia. During exercise there were no ischemic EKG changes that met strict criteria. 2. SYMPTOMS -No chest pain 3. EXERCISE PHYSIOLOGY -Average functional capacity for age. BP 144/100 at rest, BP 190/104 during exercise, BP 140/90 on discharge from stress lab. 4. ARRHYTHMIAS -None Conclusion -Normal stress test without EKG changes suggestive for ischemia. There were no reported symptoms concerning for angina. Patient did come to stress test off of propranolol with heart rate elevated at 123 bpm. Patient did take propranolol prior to leaving the stress. See attached stress report for full details. Janelle Yancey NP Mary Ann Humphreys [facility] CV STRESS ORDERABLES Final Resul t * (ABNORMAL) CBC and differential (12/22/2024 12:07 AM EDT) Only the most recent of2 resultswithin the time period is included. WBC 10.85 4.00 - 11.00 K/uL [facility] RBC 3.79(L) 4.00 - 5.20 M/uL [facility] HGB 12.5 12.0 - 16.0 g/dL [facility] HCT 38.0 36.0 - 46.0 % [facility] PLT 228 150 - 450 K/uL [facility] MCV 100.3(H) 80.0 - 100.0 fL [facility] MCH 33.0(H) 27.0 - 31.0 pg [facility] MCHC 32.9 32.0 - 36.0 g/dL [facility] RDW 12.6 11.5 - 14.5 % [facility] MPV 8.7 8.4 - 12.0 fL [facility] NRBC 0.00 0.00 /100 WBCs [facility] ABSOLUTE NRBC 0.00 0.00 K/uL [facility] DIFF METHOD Auto [facility] NEUTS 52.1 48.0 - 76.0 % [facility] LYMPHS 37.2 18.0 - 41.0 % [facility] MONOS 8.5 4.0 - 11.0 % [facility] EOS 1.6 0.0 - 5.0 % [facility] BASOS 0.3 0.0 - 1.5 % [facility] Granulocytes, immature (%) 0.3 0.0 - 0.9 % [facility] ABSOLUTE NEUTS 5.66 1.92 - 7.60 K/uL [facility] ABSOLUTE LYMPHS 4.04 0.72 - 4.10 K/uL [facility] ABSOLUTE MONOS 0.92 0.16 - 1.10 K/uL [facility] ABSOLUTE EOS 0.17 0.00 - 0.50 K/uL [facility] ABSOLUTE BASOS 0.03 0.00 - 0.15 K/uL [facility] Granulocytes, immature 0.03 0.00 - 0.09 K/uL [facility] Blood 12/22/2024 12:0 7 AM EDT 12/22/2024 12:12 AM EDT us Jun [facility] LAB BLOOD BKR ORDERABLES Fin al Result [address] [id number] * C-Reactive Protein (12/22/2024 12:07 AM EDT) C REACTIVE PROTEIN <3.0 0.0 - 4.0 mg/L [facility] Blood 12/22/2024 12:0 7 AM EDT 12/22/2024 12:12 AM EDT Jun [facility] LAB BLOOD BKR ORDERABLES Fin al Result [address] [address] * Basic metabolic panel (12/22/2024 12:07 AM EDT) Only the most recent of2 resultswithin the time period is included. SODIUM 139 133 - 146 mmol/L [facility] CHLORIDE 102 96 - 108 mmol/L [facility] POTASSIUM 3.7 3.3 - 5.1 mmol/L [facility] CO2 27 21 - 35 mmol/L [facility] BUN 17 6 - 19 mg/dL [facility] CREATININE 0.90 0.5 - 1.5 mg/dL [facility] GLUCOSE 85 70 - 99 mg/dL [facility] CALCIUM 9.1 8.4 - 10.3 mg/dL [facility] EGFR 88 >59 mL/min/1.7 3m2 [facility] Comment:Estimated glomerular filtration rate calculated using the CKD-EPI refit equation. ANION GAP 14 10 - 20 mmol/L [facility] Blood 12/22/2024 12:0 7 AM EDT 12/22/2024 12:12 AM EDT us Jun Hernandez PA-C LAB BLOOD BKR ORDERABLES Fin al Result [address] [address] * XR CHEST PA AND LATERAL 2 VIEWS (12/21/2024 11:52 PM EDT) Anatomical Region Laterality Modality Chest Computed Radiogr aphy 12/22/2024 12:1 3 AM EDT Impressions 12/22/2024 12:14 AM EDT No pneumonia or acute cardiopulmonary process. Narrative 12/22/2024 12:14 AM EDT XR CHEST PA AND LATERAL 2 VIEWS Referring clinician's provided indication for this examination in [facility]: Dyspnea (Shortness of Breath) COMPARISON: XR CHEST PA AND LATERAL 2 VIEWS FINDINGS: Devices/Tubes/Lines: None. Lungs: Mild elevation of the right hemidiaphragm. No focal consolidation or pulmonary edema. Pleura: No pleural effusion or pneumothorax. Heart/Mediastinum: Normal cardiac silhouette. Normal mediastinal contours. Bones/Soft Tissues: No acute osseous abnormality. Procedure Note Romeo Montoya MD - 12/22/2024 XR CHEST PA AND LATERAL 2 VIEWS Referring clinician's provided indication for this examination in Epic:Dyspnea (Shortness of Breath) COMPARISON: XR CHEST PA AND LATERAL 2 VIEWS FINDINGS: Devices/Tubes/Lines: None. Lungs: Mild elevation of the right hemidiaphragm. No focal consolidationor pulmonary edema. Pleura: No pleural effusion or pneumothorax. Heart/Mediastinum: Normal cardiac silhouette. Normal mediastinalcontours. Bones/Soft Tissues: No acute osseous abnormality. IMPRESSION: No pneumonia or acute cardiopulmonary process. us Onofre Hanson DO IMG XR CHEST Final Result * ECG 12-LEAD (12/21/2024 11:08 PM EDT) Only the most recent of2 resultswithin the time period is included. Ventricular Rate EKG/MIN 96 BPM [facility] Atrial Rate 96 BPM [facility] OR Interval 138 ms [facility] QRS Duration 66 ms [facility] QT Interval 356 ms [facility] QTC Interval 449 ms [facility] P [place] 42 degrees [facility] R Wave [place] 67 degrees [facility] T Wave [place] 28 degrees [facility] 12/21/2024 11:0 8 PM EDT 12/22/2024 9:17 AM EDT Narrative [facility] - 12/22/2024 9:17 AM EDT Normal sinus rhythm Nonspecific T wave abnormality Abnormal ECG When compared with ECG of 30-Nov-2024 23:03, No significant change was found Confirmed by James Nicholson ([id number]) on 12/22/2024 9:17:46 AM us Onofre G Hanson DO ECG ORDERABLES Final Result [facility] * Magnesium (12/01/2024 12:20 AM EDT) MAGNESIUM 2.1 1.6 - 2.6 mg/dL [facility] Blood 12/01/2024 12:2 0 AM EDT 12/01/2024 12:24 AM EDT us Onofre Access Mobile DO LAB BLOOD BKR ORDERABLES Charla l Result Performing Organization Address City/[facility]/ZIP Co de Phone Number [address] [address] * (ABNORMAL) [place] level (12/01/2024 12:20 AM EDT) LITHIUM 0.31(L) 0.5 - 1.00 mmol/L [facility] Blood 12/01/2024 12:2 0 AM EDT 12/01/2024 12:24 AM EDT us TripChamp DO LAB BLOOD BKR ORDERABLES Charla l Result Performing Organization Address [facility] Co de Phone Number [address] [address] * HCG, serum qualitative (11/30/2024 11:24 PM EDT) HCG, QUALITATIVE Negative Negative IU/L [facility] Blood 11/30/2024 11:2 4 PM EDT 11/30/2024 11:30 PM EDT us TripChamp DO LAB BLOOD BKR ORDERABLES Charla l Result Performing Organization Address [facility] Co de Phone Number [address] [address] * TSH with reflex (06/28/2024 8:08 AM EDT) SCREENING PANEL: TSH 2.02 0.40 - 5.00 uIU/mL [facility] Blood 06/28/2024 8:08 AM EDT 06/28/2024 8:32 AM EDT us Sally Rojas PA-C LAB BLOOD BKR ORDERABLES [place] Result [address] [address] from Last 3 Months or Most Recently Relevant to Health Maintenance Insurance [facility] 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 It is not the complete legal health record.[facility]
--- NOTE | 2025-02-18 10:30 | PC.NURSE ---
not a candidate for TNK per provider who spoke with neurology.
[2025-02-18 10:58] VITALS: BP 113/69; PULSE 68; RESP 18; TEMP 36.8; O2SAT 100
[2025-02-18 11:04] LABS: Alanine Aminotransferase 13 U/L (0-31); Albumin Level 4.6 g/dL (3.5-5.0); Alkaline Phosphatase 78 U/L (39-117); Anion Gap 12 (12-20); Aspartate Amino Transferase 50 U/L (5-31); Blood Urea Nitrogen 8 mg/dL (9-16); Calcium 9.2 mg/dL (8.4-10.2); Carbon Dioxide 24 mmol/L (22-29); Chloride 106 mmol/L (96-108); Cholesterol 175 mg/dL (<200); Creatinine Clr Calc Pharmacy 81.0; Estimated Glomerular Filt Rate > 60; HDL Cholesterol 41 mg/dL (>40); Potassium 4.1 mmol/L (3.3-5.1); Sodium 138 mmol/L (135-145); Total Protein 7.4 g/dL (6.5-8.0); Triglycerides 145 mg/dL (<150)
--- NOTE | 2025-02-18 11:35 | PM.NEUROCN ---
History of Present Illness Data of Consult Service Date: 02/18/25 Primary Care Provider: KELSIE Reason for consult: Stroke-like symptoms 29 years old woman with complex underlying psychiatric history. Review of her records in [facility] and after her description of her problems, it seems that she carried diagnosis of PTSD and bipolar disorder. Alcohol use disorder was another complication. She has been to multiple local hospitals and usually follows [facility]. She said that her neurologist has stated that she was at high risk of stroke though I could not fine its reason. She said that she had left carotid injury and right carotid stenosis but her CTA done here today did not reveal any such finding. She suffered from frequent headaches about 2-3 weeks in a month time. Headaches were usually bifrontal or all around the head pressure to throbbing type [id number] and sometime leading to stroke-like symptoms. She had been to ER at [facility] with severe headache right-sided facial symptom or weakness. This time, she was having another headache and noted tingling feeling in her left hand, which in few minutes time spread to rest of her arm. She went to bed and this morning she noted that her left side of the face was flat and decided to come to emergency room. In emergency room she was given medicine for headache, which was almost resolved when I saw her. She had a head CT and CTA of brain and neck, which did not reveal any acute problem. After hearing her overall clinical history, my recommendation was to not consider acute stroke has a diagnosis and not treat her with TNK. I saw her in emergency room. There was no recent trauma cold or flu-like illness or exposure to new medicine. Review of Systems Review of Systems: No recent cold or flu-like illness Severe headache No recent trauma No chest pain shortness of breath or palpitation No recent rash No seizure-like episode PMFSH Past Medical History Medical History (Updated 02/18/25 @ 11:44 by Gretchen Nowak MD) Seasonal asthma Vasovagal syncope Bulimia Anorexia Hypothyroidism Surgical History Surgical History (Updated 03/25/24 @ 12:35 by Plaak Walsh RN) H/O shoulder surgery Social History Social History Household Members: Other Household Members Other:: Partners Mother Comment: Rekha's discharge date is scheduled for 04/12/24. Patient Tobacco Use Status: Current everyday Tobacco user Years Smoked: 4 Advance Directives: No Advance Directives Information Provided: No Meds Allergies Allergy/AdvReac Type Severity Reaction Status Date / Time lamotrigine (From Lamictal) Allergy Hives Verified 02/18/25 09:54 Seasonal Allergies Allergy Sneezing Verified 02/18/25 09:54 Home Medications ?Medication ?Instructions ?Recorded ?Confirmed ?Last Taken ?Type L.acidophilus-B.animalis-B.bifidum 1 cap PO DAILY 03/22/24 03/22/24 03/21/24 History 25 billion cell-FOS 100 mg capsule (Probiotic Complex) alprazolam 0.25 mg tablet 0.25 - 0.5 mg PO DAILY panic attack 03/22/24 03/22/24 Unknown History divalproex 250 mg tablet,extended 250 mg PO BEDTIME 03/22/24 03/22/24 03/20/24 History release 24 hr divalproex 500 mg tablet,extended 500 mg PO BEDTIME 03/22/24 03/22/24 Unknown History release 24 hr levothyroxine 100 mcg tablet 100 mcg PO DAILY 03/22/24 03/22/24 Unknown History lithium carbonate 300 mg tablet 300 mg PO BID 03/22/24 03/22/24 Unknown History Physical Exam Vital Signs: Vital Signs: Last Vital Signs Temp 98.3 F 02/18/25 10:58 Pulse 68 02/18/25 10:58 Resp 18 02/18/25 10:58 BP 113/69 02/18/25 10:58 Pulse Ox 100 02/18/25 10:58 O2 Del Method Room Air 02/18/25 10:58 BMI result Body Mass Index 30.8 Neuro: Other: Mental Status: Alert and oriented to person, place, and time. Normal attention. Normal spontaneous speech, fluency, and comprehension. Affect is anxious. Cranial Nerves: CN II: Visual [place] full to confrontation, visual acuity intact. CN III, IV, : Pupils equal, round, reactive to light and accommodation. Extraocular movements are normal. CN V: Facial sensation is normal. CN VII: Very mild left-sided facial flatness. CN VIII: Hearing intact to bedside conversation is normal. CN IX, X: Palate elevates symmetrically. CN XI: Shoulder shrug and head turn symmetrical. CN XII: Tongue midline without atrophy or fasciculations. Motor: Bulk and tone normal in all extremities. No significant muscle weakness in arms and legs. No drift. Reflexes: Deep tendon reflexes 1+ and symmetric. Plantar response down-going bilaterally. Coordination: Bboqrl-sr-uuel and shks-co-azyb testing normal. No dysmetria. Gait and Station: No obvious gait abnormality. No ataxia or instability. Sensory: With double simultaneous stimulation in hands with eyes closed, she did not feel the touch on left side Extrapyramidal: Full facial expressions and blinking. No rigidity. Movements are appropriate with no tremor or abnormality. Speech: Normal; no dysarthria or tremor. Results Labs 02/18/25 10:00 02/18/25 10:00 Labs: Short CBC 02/18/25 Range/Units 10:00 WBC 8.2 (4.8-10.8) X10*3/uL Hgb 14.6 (12.0-16.0) g/dl Hct 43.8 (37.0-47.0) % Plt Count 296 (160-400) X10*3/uL BMP 02/18/25 10:00 Sodium 138 Potassium 4.1 Chloride 106 Carbon Dioxide 24 BUN 8 L Creatinine 1.00 Calcium 9.2 Liver Function 02/18/25 Range/Units 10:00 Total Bilirubin 0.5 (0.0-1.0) mg/dL Direct Bilirubin 0.2 (0.0-0.5) mg/dL AST 50 H (5-31) U/L ALT 13 (0-31) U/L Alkaline Phosphatase 78 (39-117) U/L Albumin 4.6 (3.5-5.0) g/dL CT angiography head and neck with contrast. 3D Post-processing. Comparison: CT/REG/SR - HEAD STROKE_BRAIN (ADULT) - 02/18/25 09:57 EST Findings: CTA head: No intracranial large vessel occlusion. No dissection or aneurysm. The intracranial segments of the internal carotid arteries are patent bilaterally. Intradural vertebral arteries are patent. Anterior and posterior circulation are patent. No abnormal postcontrast enhancement. CTA neck: There is a normal branching pattern of the aortic arch. The right common, internal and external carotid arteries are patent with no significant stenosis. The left common, internal and external carotid arteries are patent with no significant stenosis. The vertebral arteries are patent. Impression: There is no intracranial large vessel occlusion detected. No significant atherosclerotic disease or evidence of stenosis of the neck vasculature. Laboratory Tests 04/01/24 13:09 Thyroid Peroxidase Ab 243 H Assessment and Plan (1) Complicated migraine: Status: Acute 29 years old woman with complex underlying psychiatric history with diagnosis of PTSD, bipolar disorder, and alcohol use disorder who also was suffering from frequent severe headaches. Overall description of headache and associated symptoms was suggestive of complicated migraine. Her examination revealed mild right hemispheric dysfunction, which was likely cause by migraine. Her brain imaging revealed no vascular stenosis. 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 This was an incidental finding and not the cause of her symptoms. Mainstay of management is reassurance and education and recommendations for long-term migraine prevention or control. If not seen recently, she should see an dinkey engine firer/fireman to make sure there was no sign of high intracranial pressure, which might require different type of management. She is already taking valproic acid and propranolol for diagnosis of mood disorder and POTS. For migraine control, we could consider a trial of topiramate 25 mg twice a day. If that would not work, a CGRP inhibitor might be a better choice for her. She was advised to discuss all this with her outpatient neurologist at [facility]. Finally, previously she had high level of thyroid peroxidase, which can be followed up by her primary care physician but I would recommend ordering a level while she was here. More than an hour was spent completing disorder evaluation counseling and documenting. Procedures Date of Service Date of Service: 02/18/25
[2025-02-18 11:41] LABS: Troponin-I High Sensitivity < 2.7 ng/L (<3.5-17.0)
--- NOTE | 2025-02-18 11:42 | PC.NURSE ---
reports dizziness upon standing, ambulated with steady gait to the bathroom to provider urine sample. states she does have history of vertigo and unsure if this is causing her dizziness.
[2025-02-18 11:44] LABS: Appearance Urine Clear; Glucose Urine UA Negative (Negative); PH 8.0 (5.0-9.0); Specific Gravity - Urine >= 1.030 (1.005-1.025); UMIC TRIGGER UACC YES
[2025-02-18 11:57] LABS: UACC Culture Trigger YES
[2025-02-18 12:00] VITALS: BP 107/74; PULSE 72; TEMP 36.5; O2SAT 99
[2025-02-18 12:07] LABS: Cannabinoid Screen Urine Not Detected (Not Detect)
[2025-02-18 14:18] VITALS: BP 107/74; PULSE 72; RESP 16; TEMP 36.5; O2SAT 100
[2025-02-20 11:20] LABS: INR Whole Blood 1.0 (0.9-1.1); Prothrombin Time Whole Blood 11.9 sec (11.1-13.5)
--- NOTE | 2025-02-20 11:21 | ED.NEUROSD ---
HPI - Neuro Symptoms/Deficit General Chief Complaint: Stroke Stated Complaint: quest stoke, facial numbness sent by MD Time Seen by Provider: 02/18/25 09:51 History of Present Illness ED Provider: Dr. Manuel Silverio Related Data Home Medications ?Medication ?Instructions ?Recorded ?Confirmed L.acidophilus-B.animalis-B.bifidum 1 cap PO DAILY 03/22/24 03/22/24 25 billion cell-FOS 100 mg capsule (Probiotic Complex) alprazolam 0.25 mg tablet 0.25 - 0.5 mg PO DAILY panic attack 03/22/24 03/22/24 divalproex 250 mg tablet,extended 250 mg PO BEDTIME 03/22/24 03/22/24 release 24 hr divalproex 500 mg tablet,extended 500 mg PO BEDTIME 03/22/24 03/22/24 release 24 hr levothyroxine 100 mcg tablet 100 mcg PO DAILY 03/22/24 03/22/24 lithium carbonate 300 mg tablet 300 mg PO BID 03/22/24 03/22/24 Previous Rx's ?Medication ?Instructions ?Recorded cariprazine 3 mg capsule 3 mg PO DAILY #30 caps 03/22/24 dextroamphetamine-amphetamine ER 50 mg (2 x 25 mg) PO DAILY 30 days 04/12/24 25 mg 24hr capsule,extend release #60 caps (Adderall XR) prazosin 1 mg capsule 1 mg PO BID #30 caps 04/12/24 metoclopramide HCl 10 mg tablet 10 mg PO Q6H PRN nausea , 02/18/25 (Reglan) vomiting, headache #20 tabs Allergies Allergy/AdvReac Type Severity Reaction Status Date / Time lamotrigine (From Lamictal) Allergy Hives Verified 02/18/25 09:54 Seasonal Allergies Allergy Sneezing Verified 02/18/25 09:54 [facility] Past Medical History Medical History (Updated 02/19/25 @ 00:00 by Kay Iniguez) Seasonal asthma Vasovagal syncope Bulimia Anorexia Hypothyroidism Surgical History (Updated 03/25/24 @ 12:35 by Palak Walsh RN) H/O shoulder surgery Social History Social History Household Members: Other Household Members Other:: Partners Mother Comment: Rekha's discharge date is scheduled for 04/12/24. Patient Tobacco Use Status: Current everyday Tobacco user Years Smoked: 4 Physical Exam Vital Signs: Vital Signs: Last Vital Signs Temp 97.7 F 02/18/25 14:18 Pulse 72 02/18/25 14:18 Resp 16 02/18/25 14:18 BP 107/74 02/18/25 14:18 Pulse Ox 100 02/18/25 14:18 O2 Del Method Room Air 02/18/25 14:18 BMI result Body Mass Index 30.8 Medications Administered Discontinued Medications Generic Name Dose Route Start Last Admin Trade Name Lopez PRN Reason Stop Dose Admin Diphenhydramine HCl 50 mg 02/18/25 10:21 02/18/25 10:45 Diphenhydramine Hcl 50 Mg/Ml Vial IVPUSH 02/18/25 10:22 50 mg ONCE STA Administration Iohexol 100 ml 02/18/25 10:05 02/18/25 10:05 Iohexol 350 Mg/Ml 100 Ml Infus..Btl IV 02/18/25 10:06 85 ml ONCE ONE Administration Metoclopramide HCl 10 mg 02/18/25 10:21 02/18/25 10:46 Metoclopramide Hcl 10 Mg/2 Ml Vial IVPUSH 02/18/25 10:22 10 mg ONCE STA Administration Morphine Sulfate 4 mg 02/18/25 10:21 02/18/25 10:45 Morphine Sulfate 4 Mg/Ml Cartridge IVPUSH 02/18/25 10:22 4 mg ONCE STA Administration Protocol Medical Decision Making Lab Data 02/18/25 10:00 02/18/25 10:00 Labs: Lab Results 02/18/25 02/18/25 02/18/25 Range/Units 10:00 10:00 10:00 WBC 8.2 (4.8-10.8) X10*3/uL RBC 4.62 (4.20-5.50) X10*6/uL Hgb 14.6 (12.0-16.0) g/dl Hct 43.8 (37.0-47.0) % MCV 94.8 (80.0-98.0) fL MCH 31.6 (27.0-33.0) pg MCHC 33.3 (31.0-35.0) g/dl RDW 11.9 (11.0-16.0) % Plt Count 296 (160-400) X10*3/uL MPV 8.6 L (9.4-12.3) fL Immature Gran % (Auto) 0.4 (0.0-0.4) % Neut % (Auto) 55.6 (45-73) % Lymph % (Auto) 34.2 (20-40) % Carroll % (Auto) 7.8 (2-11) % Eos % (Auto) 1.5 (0-4) % Baso % (Auto) 0.5 (0-2) % Lymph # (Auto) 2.8 (1.2-4.9) X10*3/uL Carroll # (Auto) 0.6 (0.1-1.2) X10*3/uL Eos # (Auto) 0.1 (0.0-0.4) X10*3/uL Baso # (Auto) 0.0 (0.0-0.2) X10*3/uL Abs Immat Gran (auto) 0.03 (0.00-0.03) X10*3/uL Absolute Neuts (auto) 4.5 (2.0-8.3) x10*3/uL Absolute Nucleated RBC 0.000 (0.0-0.012) X10*3/uL Nucleated RBC % (auto) 0.0 (0.0-0.2) /100WBC Hold Purple Top SEE NOTE PT (Fingerstick) 11.9 (11.1-13.5) sec PT 11.3 (11.2-13.5) SEC INR (Fingerstick) 1.0 (0.9-1.1) INR 0.9 (0.9-1.1) APTT 28.3 (26.7-34.1) SEC Sodium 138 (135-145) mmol/L Potassium 4.1 (3.3-5.1) mmol/L Chloride 106 (96-108) mmol/L Carbon Dioxide 24 (22-29) mmol/L Anion Gap 12 (12-20) BUN 8 L (9-16) mg/dL Creatinine 1.00 (0.5-1.4) mg/dL Estim Creat Clear Calc 81.0 Estimated GFR > 60 POC Glucose 91 (60-115) mg/dL Random Glucose 99 (60-115) mg/dL Calcium 9.2 (8.4-10.2) mg/dL Total Bilirubin 0.5 (0.0-1.0) mg/dL Direct Bilirubin 0.2 (0.0-0.5) mg/dL AST 50 H (5-31) U/L ALT 13 (0-31) U/L Alkaline Phosphatase 78 (39-117) U/L Troponin I High Sens < 2.7 (<3.5-17.0) ng/L Total Protein 7.4 (6.5-8.0) g/dL Albumin 4.6 (3.5-5.0) g/dL Triglycerides 145 (<150) mg/dL Cholesterol 175 (<200) mg/dL LDL Cholesterol, Calc 105 H (<100) mg/dL HDL Cholesterol 41 (>40) mg/dL Beta HCG, Quant < 2 Cancelled mIU/mL Urine Color Urine Appearance Urine pH (5.0-9.0) Ur Specific Hancock (1.005-1.025) Urine Protein (Neg-Trace) mg/dL Urine Glucose (UA) (Negative) mg/dL Urine Ketones (Negative) mg/dL Urine Blood (Negative) Urine Nitrite (Negative) Ur Leukocyte Esterase (Negative) Urine RBC (0-2) /HPF Urine WBC (0-5) /HPF Ur Squamous Epith Cells (0-2) /HPF Urine Bacteria (None Seen) Hyaline Casts (0-2) /LPF Urine Yeast Urine Opiates Screen (Not Detect) Ur Buprenorphine Scrn (Not Detect) ng/mL Ur Oxycodone Screen (Not Detect) ng/mL Urine Methadone Screen (Not Detect) ng/mL Urine Fentanyl Screen (Not Detect) Ur Barbiturates Screen (Not Detect) Ur Phencyclidine Scrn (Not Detect) Ur Amphetamines Screen (Not Detect) U Benzodiazepines Scrn (Not Detect) Urine Cocaine Screen (Not Detect) U Marijuana (THC) Screen (Not Detect) Ethyl Alcohol < 10 Cancelled mg/dL 02/18/25 Range/Units 11:34 WBC (4.8-10.8) X10*3/uL RBC (4.20-5.50) X10*6/uL Hgb (12.0-16.0) g/dl Hct (37.0-47.0) % MCV (80.0-98.0) fL MCH (27.0-33.0) pg MCHC (31.0-35.0) g/dl RDW (11.0-16.0) % Plt Count (160-400) X10*3/uL MPV (9.4-12.3) fL Immature Gran % (Auto) (0.0-0.4) % Neut % (Auto) (45-73) % Lymph % (Auto) (20-40) % Carroll % (Auto) (2-11) % Eos % (Auto) (0-4) % Baso % (Auto) (0-2) % Lymph # (Auto) (1.2-4.9) X10*3/uL Carroll # (Auto) (0.1-1.2) X10*3/uL Eos # (Auto) (0.0-0.4) X10*3/uL Baso # (Auto) (0.0-0.2) X10*3/uL Abs Immat Gran (auto) (0.00-0.03) X10*3/uL Absolute Neuts (auto) (2.0-8.3) x10*3/uL Absolute Nucleated RBC (0.0-0.012) X10*3/uL Nucleated RBC % (auto) (0.0-0.2) /100WBC Hold Purple Top PT (Fingerstick) (11.1-13.5) sec PT (11.2-13.5) SEC INR (Fingerstick) (0.9-1.1) INR (0.9-1.1) APTT (26.7-34.1) SEC Sodium (135-145) mmol/L Potassium (3.3-5.1) mmol/L Chloride (96-108) mmol/L Carbon Dioxide (22-29) mmol/L Anion Gap (12-20) BUN (9-16) mg/dL Creatinine (0.5-1.4) mg/dL Estim Creat Clear Calc Estimated GFR POC Glucose (60-115) mg/dL Random Glucose (60-115) mg/dL Calcium (8.4-10.2) mg/dL Total Bilirubin (0.0-1.0) mg/dL Direct Bilirubin (0.0-0.5) mg/dL AST (5-31) U/L ALT (0-31) U/L Alkaline Phosphatase (39-117) U/L Troponin I High Sens (<3.5-17.0) ng/L Total Protein (6.5-8.0) g/dL Albumin (3.5-5.0) g/dL Triglycerides (<150) mg/dL Cholesterol (<200) mg/dL LDL Cholesterol, Calc (<100) mg/dL HDL Cholesterol (>40) mg/dL Beta HCG, Quant mIU/mL Urine Color Yellow Urine Appearance Clear Urine pH 8.0 (5.0-9.0) Ur Specific Hancock >= 1.030 H (1.005-1.025) Urine Protein Negative (Neg-Trace) mg/dL Urine Glucose (UA) Negative (Negative) mg/dL Urine Ketones Negative (Negative) mg/dL Urine Blood Negative (Negative) Urine Nitrite Negative (Negative) Ur Leukocyte Esterase Small (1+) H (Negative) Urine RBC 0-2 (0-2) /HPF Urine WBC 0-5 (0-5) /HPF Ur Squamous Epith Cells 0-2 (0-2) /HPF Urine Bacteria None Seen (None Seen) Hyaline Casts 0-2 (0-2) /LPF Urine Yeast Present Urine Opiates Screen POSITIVE H (Not Detect) Ur Buprenorphine Scrn Not Detected (Not Detect) ng/mL Ur Oxycodone Screen Not Detected (Not Detect) ng/mL Urine Methadone Screen Not Detected (Not Detect) ng/mL Urine Fentanyl Screen Not Detected (Not Detect) Ur Barbiturates Screen Not Detected (Not Detect) Ur Phencyclidine Scrn Not Detected (Not Detect) Ur Amphetamines Screen POSITIVE H (Not Detect) U Benzodiazepines Scrn Not Detected (Not Detect) Urine Cocaine Screen Not Detected (Not Detect) U Marijuana (THC) Screen Not Detected (Not Detect) Ethyl Alcohol mg/dL Discharge Plan Discharge Clinical Impression: Complicated migraine, Facial droop, Arm paresthesia, left, Left leg paresthesias Patient Disposition: Home, Self-Care Additional Instructions: On initial presentation you did have a left facial droop with diminished noxious stimuli (pinprick) to the left side of your body. You also had a headache on presentation. The CT scan of your head revealed no bleeding in the brain or stroke. CT angiogram of your head and neck revealed no blockages of the blood vessels of your brain or neck and no significant narrowing/stenosis of your arteries. Your presentation and symptoms are consistent with a complicated/complex migraine syndrome. Migraines can mimic a stroke. You were treated with morphine 4 mg IV, Reglan 10 mg IV and Benadryl 50 mg IV with improvement of your symptoms which again goes along with a complex migraine syndrome. I want you to take the following 3 medications together every 6 hours as needed for headache, nausea or vomiting. Reglan (metoclopramide) in 10 mg, 1 pill Benadry (diphenhydramine) l 25 mg, 2 pills Extra-strength Tylenol 500 mg, 2 pills After you take these medications, lie down in a dark quiet room and try to fall asleep. ?These medications will make you sleepy, do not drive or work after taking these medications. Follow-up with your doctor in 2 days. Please return to the emergency department if your symptoms get worse or if you develop any symptoms that are concerning to you. I want you to follow up with your neurologist to discuss your CT head and angiogram results so that your neurologist compared this to the MRI results that you had. CT head without contrast Comparison: 06/15/2024 Findings: No intra-axial mass, midline shift, hydrocephalus, or acute hemorrhage. No significant atrophy-like change or white matter disease. There is no sinus or mastoid fluid. The orbits are within normal limits. No skull fracture. IMPRESSION: 1. No acute intracranial findings. This document has been electronically signed by: Maynor Garcia MD on 02/18/2025 10:19:07 CT angiography head and neck with contrast. 3D Post-processing. Comparison: CT/REG/SR - HEAD STROKE_BRAIN (ADULT) - 02/18/25 09:57 EST CLINICAL HISTORY: Left-sided facial droop numbness rule out LVO Findings: CTA head: No intracranial large vessel occlusion. No dissection or aneurysm. The intracranial segments of the internal carotid arteries are patent bilaterally. Intradural vertebral arteries are patent. Anterior and posterior circulation are patent. No abnormal postcontrast enhancement. CTA neck: There is a normal branching pattern of the aortic arch. The right common, internal and external carotid arteries are patent with no significant stenosis. The left common, internal and external carotid arteries are patent with no significant stenosis. The vertebral arteries are patent. Impression: There is no intracranial large vessel occlusion detected. No significant atherosclerotic disease or evidence of stenosis of the neck vasculature. This document has been electronically signed by: Maynor Garcia MD on 02/18/2025 10:31:47 Prescriptions: New metoclopramide HCl [Reglan] 10 mg tablet 10 mg PO Q6H PRN (Reason: nausea , vomiting, headache) Qty: 20 0RF No Action levothyroxine 100 mcg tablet 100 mcg PO DAILY alprazolam 0.25 mg tablet 0.25 - 0.5 mg PO DAILY divalproex 500 mg tablet extended release 24 hr 500 mg PO BEDTIME lithium carbonate 300 mg tablet 300 mg PO BID divalproex 250 mg tablet extended release 24 hr 250 mg PO BEDTIME Probiotic Complex 25 billion cell -100 mg Capsule 1 cap PO DAILY cariprazine 3 mg capsule 3 mg PO DAILY Qty: 30 0RF dextroamphetamine-amphetamine [Adderall XR] 25 mg Capsule,Extended Release 24hr 50 mg PO DAILY 30 Days Qty: 60 0RF prazosin 1 mg capsule 1 mg PO BID Qty: 30 0RF Rx Instructions: *Dose change* Interventions: ED Discharge Assessment Last Done: 02/18/25 14:18 Discharge Date/Time: 02/18/25 14:18 Print Language: [place]
== END 2025-02-18 14:18 | disposition home or self-care (01) ==
PROVIDERS: Emergency Provider Emergency Medicine Emergency Medical Services
DX: G43.109 Migraine with aura, not intractable, without status migrainosus (principal); R29.810 Facial weakness; R20.2 Paresthesia of skin; F31.9 Bipolar disorder, unspecified; Z72.0 Tobacco use; Z79.899 Other long term (current) drug therapy
CPT/HCPCS: 36415; 70450; 70496; 70498; 80048; 80061; 80076; 80307; 81001; 82947; 84484; 84702; 85025; 85610; 85730; 87086; 93005; 96374; 96375; 99285; J1200; J2270; J2765; Q9967

== ENCOUNTER → 2025-02-18 09:54 | Outpatient (BNV) | payer OTHER, SELFPAY | PROVIDERS: Emergency Provider Emergency Medicine Emergency Medical Services; Visit Provider Internal Medicine Cardiovascular Disease | DX: I63.9 Cerebral infarction, unspecified (principal) | CPT/HCPCS: 93010 ==

== ENCOUNTER → 2025-02-18 09:54 | Outpatient (BNV) | payer OTHER, SELFPAY | PROVIDERS: Emergency Provider Emergency Medicine Emergency Medical Services; Visit Provider Radiology Vascular & Interventional Radiology | DX: R29.810 Facial weakness (principal); R51.9 Headache, unspecified | CPT/HCPCS: 70496 ==

== ENCOUNTER → 2025-02-18 10:24 | Outpatient (BNV) | payer OTHER, SELFPAY | PROVIDERS: Emergency Provider Emergency Medicine Emergency Medical Services; Visit Provider Psychiatry & Neurology Neurology | DX: G43.109 Migraine with aura, not intractable, without status migrainosus (principal) | CPT/HCPCS: 99284 ==